=== PATIENT | female | born 1965 | race Two or more races ===

== ENCOUNTER 2020-05-16 15:02 | Outpatient (REF) | payer OTHER, SELFPAY ==
[2020-05-16 18:00] LABS: MANUAL DIFF FLAG NO
[2020-05-16 18:02] LABS: Basophils Percent Auto 0.1 % (0-2); Eosinophils Percent Auto 0.3 % (0-4); Hematocrit 37.7 % (37-47); Hemoglobin 11.8 g/dl (12.0-16.0); Imm Gran Abs Auto 0.06 X10*3/uL (0.00-0.03); Imm Gran Pct Auto 0.4 % (0.0-0.4); Lymphocytes Absolute Auto 2.7 X10*3/uL (1.2-4.9); Lymphocytes Percent Auto 17.8 % (20-40); Mean Corpuscular HGB Conc 31.3 g/dl (31.0-35.0); Mean Corpuscular Hemoglobin 29.9 pg (27.0-33.0); Mean Corpuscular Volume 95.4 fL (80-98); Mean Platelet Volume 10.8 fL (9.4-12.3); Monocytes Absolute Auto 0.9 X10*3/uL (0.1-1.2); Monocytes Percent Auto 6.1 % (2-11); Neutrophils Absolute Auto 11.3 X10*3/uL (2.0-8.3); Neutrophils Percent Auto 75.3 % (45-73); Platelet Count 308 X10*3/uL (160-400); Red Blood Count 3.95 X10*6/uL (4.20-5.50); Red Cell Distribution Width 13.5 % (11.0-16.0)
[2020-05-16 18:38] LABS: Anion Gap 11 (12-20); Blood Urea Nitrogen 14 mg/dL (9-16); Calcium 9.1 mg/dL (8.4-10.2); Carbon Dioxide 29 mmol/L (22-29); Chloride 109 mmol/L (96-108); Estimated Glomerular Filt Rate > 60; Glucose Random 83 mg/dL (60-115); Potassium 3.9 mmol/l (3.3-5.1); Sodium 145 mmol/L (135-145)
[2020-05-16 18:40] LABS: Troponin-I High Sensitivity < 3.5 ng/L (<3.5-17.0)
[2020-05-16 18:49] LABS: Erythrocyte Sedimentation Rate 6 MM/HR (0-20)
[2020-05-18 09:38] LABS: SARS COV2 IgG Negative (Negative)
== END 2020-05-16 15:03 | disposition home or self-care (01) ==
LOC: CF 15:02
PROVIDERS: PCP Pediatrics; Visit Provider Hospitalist
DX: J32.9 Chronic sinusitis, unspecified (principal); J44.9 Chronic obstructive pulmonary disease, unspecified; J96.90 Respiratory failure, unspecified, unspecified whether with hypoxia or hypercapnia; G47.33 Obstructive sleep apnea (adult) (pediatric); B37.0 Candidal stomatitis; R07.9 Chest pain, unspecified; Z01.84 Encounter for antibody response examination; Z99.89 Dependence on other enabling machines and devices
CPT/HCPCS: 36415; 80048; 82550; 84484; 85025; 85652; 86769; 99214

== ENCOUNTER → 2020-06-04 10:09 | Outpatient (BNVA) | payer OTHER, SELFPAY | PROVIDERS: PCP Pediatrics; Visit Provider Hospitalist | DX: J44.1 Chronic obstructive pulmonary disease with (acute) exacerbation (principal); J96.10 Chronic respiratory failure, unspecified whether with hypoxia or hypercapnia; G47.33 Obstructive sleep apnea (adult) (pediatric); Z99.89 Dependence on other enabling machines and devices; Z99.81 Dependence on supplemental oxygen | CPT/HCPCS: 96372; 99214; J2930 ==

== ENCOUNTER → 2020-07-25 14:55 | Outpatient (BNVA) | payer OTHER, SELFPAY | PROVIDERS: PCP Pediatrics; Visit Provider Hospitalist | DX: J96.10 Chronic respiratory failure, unspecified whether with hypoxia or hypercapnia (principal); J32.9 Chronic sinusitis, unspecified; J44.9 Chronic obstructive pulmonary disease, unspecified; G47.33 Obstructive sleep apnea (adult) (pediatric) | CPT/HCPCS: 99212 ==

== ENCOUNTER → 2020-09-23 13:08 | Outpatient (BNVA) | payer OTHER, SELFPAY | PROVIDERS: PCP Pediatrics; Visit Provider Hospitalist ==

== ENCOUNTER 2020-10-09 15:12 | Outpatient (REF) | payer OTHER, SELFPAY ==
--- NOTE | ~2020-10-09 | XR_ITS ---
EXAMINATION: XR CHEST CLINICAL INFORMATION: COPD COMPARISON: 05/07/2019 TECHNIQUE: 2 views of the chest were obtained. FINDINGS: No significant abnormality is noted involving the heart, lungs, mediastinum, bony thorax or soft tissues. XR/XR chest 2V IMPRESSION: Unremarkable examination.
[2020-10-09 16:06] LABS: MANUAL DIFF FLAG NO
[2020-10-09 16:10] LABS: Basophils Percent Auto 0.6 % (0-2); Eosinophils Absolute Auto 0.1 X10*3/uL (0.0-0.4); Eosinophils Percent Auto 1.4 % (0-4); Hematocrit 37.7 % (37-47); Hemoglobin 11.9 g/dl (12.0-16.0); Imm Gran Abs Auto 0.02 X10*3/uL (0.00-0.03); Imm Gran Pct Auto 0.3 % (0.0-0.4); Lymphocytes Absolute Auto 2.1 X10*3/uL (1.2-4.9); Lymphocytes Percent Auto 32.6 % (20-40); Mean Corpuscular HGB Conc 31.6 g/dl (31.0-35.0); Mean Corpuscular Hemoglobin 29.7 pg (27.0-33.0); Mean Platelet Volume 10.1 fL (9.4-12.3); Monocytes Absolute Auto 0.6 X10*3/uL (0.1-1.2); Monocytes Percent Auto 9.6 % (2-11); Neutrophils Absolute Auto 3.6 X10*3/uL (2.0-8.3); Neutrophils Percent Auto 55.5 % (45-73); Platelet Count 310 X10*3/uL (160-400); Red Blood Count 4.01 X10*6/uL (4.20-5.50); Red Cell Distribution Width 13.3 % (11.0-16.0); White Blood Count 6.5 X10*3/uL (4.8-10.8)
[2020-10-09 17:28] LABS: Erythrocyte Sedimentation Rate 39 MM/HR (0-20)
[2020-10-10 03:49] LABS: SARS COV2 IgG Negative (Negative)
[2020-10-10 06:06] LABS: Immunoglobulin E 204 kU/L (<OR=114)
[2020-10-10 14:27] LABS: Immunoglobulin G Subclass 1 369 mg/dL (382-929); Immunoglobulin G Subclass 2 214 mg/dL (241-700); Immunoglobulin G Subclass 3 32 mg/dL (22-178); Immunoglobulin G Total 739 mg/dL (600-1640)
== END 2020-10-09 15:13 | disposition home or self-care (01) ==
LOC: HO.LAB 15:12
PROVIDERS: PCP Pediatrics; Visit Provider Hospitalist
DX: J44.9 Chronic obstructive pulmonary disease, unspecified (principal)
CPT/HCPCS: 36415; 71046; 82784; 82785; 85025; 85652; 86769

== ENCOUNTER → 2020-11-04 14:31 | Outpatient (BNVA) | payer OTHER, SELFPAY | PROVIDERS: PCP Pediatrics; Visit Provider Hospitalist | DX: J44.9 Chronic obstructive pulmonary disease, unspecified (principal); J96.11 Chronic respiratory failure with hypoxia; J32.0 Chronic maxillary sinusitis; G47.33 Obstructive sleep apnea (adult) (pediatric); R07.81 Pleurodynia; K21.9 Gastro-esophageal reflux disease without esophagitis; R31.0 Gross hematuria; Z79.899 Other long term (current) drug therapy | CPT/HCPCS: 99212 ==

== ENCOUNTER → 2021-01-01 14:52 | Outpatient (BNVA) | payer OTHER, SELFPAY | PROVIDERS: PCP Pediatrics; Visit Provider Hospitalist | DX: J45.909 Unspecified asthma, uncomplicated (principal); Z79.899 Other long term (current) drug therapy | CPT/HCPCS: 99212 ==

== ENCOUNTER → 2021-02-26 15:08 | Outpatient (BNVA) | payer OTHER, SELFPAY | PROVIDERS: PCP Pediatrics; Visit Provider Hospitalist | DX: J96.11 Chronic respiratory failure with hypoxia (principal); J44.1 Chronic obstructive pulmonary disease with (acute) exacerbation; G47.33 Obstructive sleep apnea (adult) (pediatric) | CPT/HCPCS: 99211 ==

== ENCOUNTER → 2021-03-31 14:44 | Outpatient (BNVA) | payer OTHER, SELFPAY | PROVIDERS: PCP Pediatrics; Visit Provider Hospitalist | DX: J96.11 Chronic respiratory failure with hypoxia (principal); J44.1 Chronic obstructive pulmonary disease with (acute) exacerbation; J44.9 Chronic obstructive pulmonary disease, unspecified; G47.33 Obstructive sleep apnea (adult) (pediatric) | CPT/HCPCS: 99212 ==

== ENCOUNTER 2021-05-01 09:13 | Outpatient (REF) | payer OTHER, SELFPAY ==
[2021-05-06 09:31] LABS: SARS-COV-2 IgG Spike, Semi-Qnt >20.00 index (<1.00)
== END 2021-05-01 09:14 | disposition home or self-care (01) ==
LOC: HO.LAB 09:13
PROVIDERS: PCP Pediatrics; Visit Provider Hospitalist
DX: J44.1 Chronic obstructive pulmonary disease with (acute) exacerbation (principal); G47.30 Sleep apnea, unspecified; J96.10 Chronic respiratory failure, unspecified whether with hypoxia or hypercapnia; F19.20 Other psychoactive substance dependence, uncomplicated; Z79.899 Other long term (current) drug therapy; Z99.81 Dependence on supplemental oxygen; Z20.822 Contact with and (suspected) exposure to COVID-19
CPT/HCPCS: 36415; 86769; 99212

== ENCOUNTER → 2021-06-02 15:01 | Outpatient (REF) | payer OTHER, SELFPAY ==
--- NOTE | 2021-06-02 15:57 | ECG_ITS ---
Test Reason : copd Blood Pressure : / mmHG Vent. Rate : 066 BPM Atrial Rate : 066 BPM P-R Int : 126 ms QRS Dur : 078 ms QT Int : 400 ms P-R-T Axes : 038 -12 -02 degrees QTc Int : 419 ms Normal sinus rhythm Low voltage QRS Nonspecific T wave abnormality Abnormal ECG No previous ECGs available Referred By: Christopher Clark Electronically Signed By:SIMON DORMAN MD
== END ==
LOC: HO.CARD 15:01
PROVIDERS: PCP Pediatrics; Visit Provider Hospitalist
DX: J96.10 Chronic respiratory failure, unspecified whether with hypoxia or hypercapnia (principal); J44.1 Chronic obstructive pulmonary disease with (acute) exacerbation; G47.33 Obstructive sleep apnea (adult) (pediatric); J45.50 Severe persistent asthma, uncomplicated; R07.81 Pleurodynia
CPT/HCPCS: 93005; 99212

== ENCOUNTER 2021-06-05 13:57 | Outpatient (REF) | payer OTHER, SELFPAY | END 2021-06-05 13:58 | disposition home or self-care (01) | LOC: HO.MDS 13:57 | PROVIDERS: PCP Pediatrics; Visit Provider Hospitalist | DX: J45.50 Severe persistent asthma, uncomplicated (principal) | CPT/HCPCS: 96372; J2357 ==

== ENCOUNTER 2021-07-07 14:05 | Outpatient (REF) | payer OTHER, SELFPAY | END 2021-07-07 14:06 | disposition home or self-care (01) | LOC: HO.MDS 14:05 | PROVIDERS: PCP Pediatrics; Visit Provider Hospitalist | DX: J45.50 Severe persistent asthma, uncomplicated (principal) | CPT/HCPCS: 96372; J2357 ==

== ENCOUNTER 2021-07-21 14:12 | Outpatient (REF) | payer OTHER, SELFPAY | END 2021-07-21 14:13 | disposition home or self-care (01) | LOC: HO.MDS 14:12 | PROVIDERS: PCP Pediatrics; Visit Provider Hospitalist | DX: J45.50 Severe persistent asthma, uncomplicated (principal); Z99.81 Dependence on supplemental oxygen | CPT/HCPCS: 96372; J2357 ==

== ENCOUNTER → 2021-08-03 15:16 | Outpatient (BNVA) | payer OTHER, SELFPAY | PROVIDERS: PCP Pediatrics; Visit Provider Hospitalist | DX: J96.11 Chronic respiratory failure with hypoxia (principal); J45.50 Severe persistent asthma, uncomplicated; J44.9 Chronic obstructive pulmonary disease, unspecified; G47.33 Obstructive sleep apnea (adult) (pediatric) | CPT/HCPCS: 90471; 90686; 99212 ==

== ENCOUNTER 2021-08-04 15:08 | Outpatient (REF) | payer OTHER, SELFPAY | END 2021-08-04 15:09 | disposition home or self-care (01) | LOC: HO.MDS 15:08 | PROVIDERS: PCP Pediatrics; Visit Provider Hospitalist | DX: J45.50 Severe persistent asthma, uncomplicated (principal) | CPT/HCPCS: 96372; J2357 ==

== ENCOUNTER 2021-08-18 15:03 | Outpatient (REF) | payer OTHER, SELFPAY | END 2021-08-18 15:04 | disposition home or self-care (01) | LOC: HO.MDS 15:03 | PROVIDERS: PCP Pediatrics; Visit Provider Hospitalist | DX: J45.50 Severe persistent asthma, uncomplicated (principal) | CPT/HCPCS: 96372; J2357 ==

== ENCOUNTER 2021-09-01 14:48 | Outpatient (REF) | payer OTHER, SELFPAY | END 2021-09-01 14:49 | disposition home or self-care (01) | LOC: HO.MDS 14:48 | PROVIDERS: PCP Pediatrics; Visit Provider Hospitalist | DX: J45.50 Severe persistent asthma, uncomplicated (principal); Z99.81 Dependence on supplemental oxygen | CPT/HCPCS: 96372; J2357 ==

== ENCOUNTER 2021-09-15 14:56 | Outpatient (REF) | payer OTHER, SELFPAY | END 2021-09-15 14:57 | disposition home or self-care (01) | LOC: HO.MDS 14:56 | PROVIDERS: PCP Pediatrics; Visit Provider Hospitalist | DX: J45.50 Severe persistent asthma, uncomplicated (principal); J96.10 Chronic respiratory failure, unspecified whether with hypoxia or hypercapnia; Z99.81 Dependence on supplemental oxygen | CPT/HCPCS: 96372; J2357 ==

== ENCOUNTER 2021-09-29 16:59 | Outpatient (REF) | payer OTHER, SELFPAY | END 2021-09-29 17:00 | disposition home or self-care (01) | LOC: HO.MDS 16:59 | PROVIDERS: PCP Pediatrics; Visit Provider Hospitalist | DX: J45.50 Severe persistent asthma, uncomplicated (principal) | CPT/HCPCS: 96372; J2357 ==

== ENCOUNTER 2021-10-06 15:25 | Outpatient (REF) | payer OTHER, SELFPAY ==
[2021-10-06 16:14] LABS: MANUAL DIFF FLAG NO
[2021-10-06 16:28] LABS: Basophils Percent Auto 0.4 % (0-2); Eosinophils Percent Auto 0.2 % (0-4); Hematocrit 37.5 % (37.0-47.0); Imm Gran Abs Auto 0.04 X10*3/uL (0.00-0.03); Imm Gran Pct Auto 0.4 % (0.0-0.4); Lymphocytes Absolute Auto 3.6 X10*3/uL (1.2-4.9); Lymphocytes Percent Auto 34.2 % (20-40); Mean Corpuscular Hemoglobin 29.8 pg (27.0-33.0); Mean Corpuscular Volume 93.1 fL (80.0-98.0); Mean Platelet Volume 10.4 fL (9.4-12.3); Monocytes Absolute Auto 0.7 X10*3/uL (0.1-1.2); Monocytes Percent Auto 6.7 % (2-11); Neutrophils Percent Auto 58.1 % (45-73); Platelet Count 358 X10*3/uL (160-400); Red Blood Count 4.03 X10*6/uL (4.20-5.50); Red Cell Distribution Width 13.1 % (11.0-16.0); White Blood Count 10.4 X10*3/uL (4.8-10.8)
[2021-10-06 16:47] LABS: Anion Gap 10 (12-20); Blood Urea Nitrogen 16 mg/dL (9-16); Calcium 10.4 mg/dL (8.4-10.2); Carbon Dioxide 28 mmol/L (22-29); Chloride 108 mmol/L (96-108); Estimated Glomerular Filt Rate > 60; Glucose Random 87 mg/dL (60-115); Potassium 3.8 mmol/L (3.3-5.1); Sodium 142 mmol/L (135-145)
[2021-10-06 17:06] LABS: Erythrocyte Sedimentation Rate 21 MM/HR (0-20)
[2021-10-12 04:06] LABS: SARS COV2 IgG Negative (Negative)
== END 2021-10-06 15:26 | disposition home or self-care (01) ==
LOC: HO.LAB 15:25
PROVIDERS: PCP Pediatrics; Visit Provider Hospitalist
DX: Z20.822 Contact with and (suspected) exposure to COVID-19 (principal); J96.11 Chronic respiratory failure with hypoxia; G47.33 Obstructive sleep apnea (adult) (pediatric); J44.9 Chronic obstructive pulmonary disease, unspecified; J45.50 Severe persistent asthma, uncomplicated
CPT/HCPCS: 36415; 80048; 85025; 85652; 86769; 99212

== ENCOUNTER 2021-10-14 15:06 | Outpatient (REF) | payer OTHER, SELFPAY | END 2021-10-14 15:07 | disposition home or self-care (01) | LOC: HO.MDS 15:06 | PROVIDERS: PCP Pediatrics; Visit Provider Hospitalist | DX: J45.50 Severe persistent asthma, uncomplicated (principal) | CPT/HCPCS: 96372; J2357 ==

== ENCOUNTER 2021-10-28 15:08 | Outpatient (REF) | payer OTHER, SELFPAY | END 2021-10-28 15:09 | disposition home or self-care (01) | LOC: HO.MDS 15:08 | PROVIDERS: PCP Pediatrics; Visit Provider Hospitalist | DX: J45.50 Severe persistent asthma, uncomplicated (principal) | CPT/HCPCS: 96372; J2357 ==

== ENCOUNTER 2021-11-17 15:09 | Outpatient (REF) | payer OTHER, SELFPAY | END 2021-11-17 15:10 | disposition home or self-care (01) | LOC: HO.MDS 15:09 | PROVIDERS: PCP Pediatrics; Visit Provider Hospitalist | DX: J45.50 Severe persistent asthma, uncomplicated (principal) | CPT/HCPCS: 96372; J2357 ==

== ENCOUNTER 2021-12-01 16:03 | Outpatient (REF) | payer OTHER, SELFPAY | END 2021-12-01 16:04 | disposition home or self-care (01) | LOC: HO.MDS 16:03 | PROVIDERS: PCP Pediatrics; Visit Provider Hospitalist | DX: J45.50 Severe persistent asthma, uncomplicated (principal); J96.10 Chronic respiratory failure, unspecified whether with hypoxia or hypercapnia; G47.33 Obstructive sleep apnea (adult) (pediatric); Z99.81 Dependence on supplemental oxygen | CPT/HCPCS: 96372; J2357; Q0163 ==

== ENCOUNTER 2021-12-15 14:52 | Outpatient (REF) | payer OTHER, SELFPAY | END 2021-12-15 14:53 | disposition home or self-care (01) | LOC: HO.MDS 14:52 | PROVIDERS: PCP Pediatrics; Visit Provider Hospitalist | DX: J45.50 Severe persistent asthma, uncomplicated (principal) | CPT/HCPCS: 96372; J2357; Q0163 ==

== ENCOUNTER 2021-12-29 15:13 | Outpatient (REF) | payer OTHER, SELFPAY | END 2021-12-29 15:14 | disposition home or self-care (01) | LOC: HO.MDS 15:13 | PROVIDERS: PCP Pediatrics; Visit Provider Hospitalist | DX: J45.50 Severe persistent asthma, uncomplicated (principal) | CPT/HCPCS: 96372; J2357; Q0163 ==

== ENCOUNTER → 2022-01-05 15:20 | Outpatient (BNVA) | payer OTHER, SELFPAY | PROVIDERS: PCP Pediatrics; Visit Provider Hospitalist | DX: J44.9 Chronic obstructive pulmonary disease, unspecified (principal); J45.50 Severe persistent asthma, uncomplicated; J96.11 Chronic respiratory failure with hypoxia; G47.33 Obstructive sleep apnea (adult) (pediatric); Z79.52 Long term (current) use of systemic steroids; Z79.899 Other long term (current) drug therapy; Z99.81 Dependence on supplemental oxygen | CPT/HCPCS: 99212 ==

== ENCOUNTER → 2022-04-05 14:17 | Outpatient (BNVA) | payer OTHER, SELFPAY | PROVIDERS: PCP Pediatrics; Visit Provider Hospitalist | DX: Z01.811 Encounter for preprocedural respiratory examination (principal); J44.1 Chronic obstructive pulmonary disease with (acute) exacerbation; J96.11 Chronic respiratory failure with hypoxia; J45.50 Severe persistent asthma, uncomplicated; G47.33 Obstructive sleep apnea (adult) (pediatric); Z99.81 Dependence on supplemental oxygen | CPT/HCPCS: 99212 ==

== ENCOUNTER → 2022-06-04 12:57 | Outpatient (BNVA) | payer OTHER, SELFPAY | PROVIDERS: PCP Pediatrics; Visit Provider Hospitalist | DX: Z23 Encounter for immunization (principal); J44.9 Chronic obstructive pulmonary disease, unspecified; J45.50 Severe persistent asthma, uncomplicated; J96.11 Chronic respiratory failure with hypoxia; G47.33 Obstructive sleep apnea (adult) (pediatric) | CPT/HCPCS: 90471; 90686; 99212 ==

== ENCOUNTER → 2022-06-17 13:03 | Outpatient (BNVA) | payer OTHER, SELFPAY | PROVIDERS: PCP Pediatrics; Visit Provider Hospitalist | DX: J45.51 Severe persistent asthma with (acute) exacerbation (principal); J44.9 Chronic obstructive pulmonary disease, unspecified; J96.11 Chronic respiratory failure with hypoxia; G47.33 Obstructive sleep apnea (adult) (pediatric) | CPT/HCPCS: 96372; 99212; J2930 ==

== ENCOUNTER 2022-12-10 14:59 | Outpatient (REF) | payer OTHER, SELFPAY ==
--- NOTE | ~2022-12-10 | XR_ITS ---
EXAMINATION: XR CHEST CLINICAL INFORMATION: Asthma with acute exacerbation COMPARISON: None available. TECHNIQUE: 2 views of the chest were obtained. FINDINGS: No significant abnormality is noted involving the heart, lungs, mediastinum, bony thorax or soft tissues. XR/XR chest 2V IMPRESSION: Unremarkable chest examination.
[2022-12-10 16:05] LABS: MANUAL DIFF FLAG NO
[2022-12-10 17:35] LABS: Basophils Absolute Auto 0.1 X10*3/uL (0.0-0.2); Basophils Percent Auto 0.9 % (0-2); Eosinophils Absolute Auto 0.2 X10*3/uL (0.0-0.4); Eosinophils Percent Auto 2.6 % (0-4); Hematocrit 41.3 % (37.0-47.0); Imm Gran Abs Auto 0.01 X10*3/uL (0.00-0.03); Imm Gran Pct Auto 0.1 % (0.0-0.4); Lymphocytes Absolute Auto 2.8 X10*3/uL (1.2-4.9); Lymphocytes Percent Auto 39.5 % (20-40); Mean Corpuscular HGB Conc 31.5 g/dl (31.0-35.0); Mean Corpuscular Hemoglobin 29.2 pg (27.0-33.0); Mean Corpuscular Volume 92.8 fL (80.0-98.0); Mean Platelet Volume 10.9 fL (9.4-12.3); Monocytes Absolute Auto 0.6 X10*3/uL (0.1-1.2); Monocytes Percent Auto 8.6 % (2-11); Neutrophils Absolute Auto 3.4 x10*3/uL (2.0-8.3); Neutrophils Percent Auto 48.3 % (45-73); Platelet Count 346 X10*3/uL (160-400); Red Blood Count 4.45 X10*6/uL (4.20-5.50); Red Cell Distribution Width 12.2 % (11.0-16.0)
[2022-12-10 18:08] LABS: Anion Gap 14 (12-20); Blood Urea Nitrogen 14 mg/dL (9-16); Carbon Dioxide 29 mmol/L (22-29); Chloride 103 mmol/L (96-108); Estimated Glomerular Filt Rate > 60; Glucose Random 96 mg/dL (60-115); Potassium 5.1 mmol/L (3.3-5.1); Sodium 141 mmol/L (135-145)
[2022-12-14 10:30] LABS: Immunoglobulin E 90 kU/L (<OR=114)
[2022-12-17 12:38] LABS: Immunoglobulin G Subclass 1 359 mg/dL (382-929); Immunoglobulin G Subclass 2 233 mg/dL (241-700); Immunoglobulin G Subclass 3 31 mg/dL (22-178); Immunoglobulin G Subclass 4 26.8 mg/dL (4-86); Immunoglobulin G Total 654 mg/dL (600-1640)
== END 2022-12-10 15:00 | disposition home or self-care (01) ==
LOC: HO.LAB 14:59
PROVIDERS: PCP Pediatrics; Visit Provider Hospitalist
DX: Z01.811 Encounter for preprocedural respiratory examination (principal); J45.50 Severe persistent asthma, uncomplicated; R60.0 Localized edema; J96.11 Chronic respiratory failure with hypoxia; J44.9 Chronic obstructive pulmonary disease, unspecified
CPT/HCPCS: 36415; 71046; 80048; 82784; 82785; 85025; 94010; 99212

== ENCOUNTER 2023-04-01 14:52 | Outpatient (AMB) | payer OTHER, SELFPAY ==
--- NOTE | 2023-04-01 14:56 | MHC.OFFVIS ---
Intake Vital Signs 04/01/23 14:57 Height 5 ft 6 in Weight 262 lb 5.601 oz BMI 42.3 Pulse 73 Pulse Source Pulse Oximeter Pulse Oximetry (%) 98 Intake Visit Reasons: COPD [employer] Required: No Allergies topiramate [From Topamax] Allergy (Mild, Verified 04/01/23 14:59) Tingling in mouth and lips gabapentin Allergy (Verified 04/01/23 14:59) Hot Flashes HPI HPI Comments History of Present Illness Details The patientis a 57 y/o woman with underlying chronic respiratory failure on oxygen in addition to COPD, VIKAS on CPAP. She is oxygen dependent. She does have dyspnea on exertion. Moderate in amount. The oxygen has been helpful. However, it is hard for her to carry the oxygen tanks. She is concerned about the finding on the CT scan of the chest demonstrating 1.7 cm splenic artery aneurysm. Therefore, I will refer her to vascular surgeon. Overall, the patient is doing well from a respiratory standpoint. She understand that she does have a moderate risk for perioperative pulmonary complications. I did review her sleep study from January 2018 demonstrating moderate sleep apnea with significant hypoxia. I will send a new prescription for CPAP to the [facility]. When she Star CPAP for we can do an overnight oximetry to see if she does need oxygen with her CPAP. She continues using her oxygen. She is still having issues with a battery operated portable oxygen concentrator. She has a hard time caring her oxygen tanks because of her significant arthritis and other comorbidities. The portable oxygen concentrator will provide better portability outside of her home. 12/10/2022 The patient is here for a pulmonary follow up visit. She does complain of dyspnea on exertion. Moderate in severity. HAs been getting better. She has been using her oxygen, Also continues with her respiratory therapy and nebulizer. She also continues to use the CPAP every night for more than 4 hours a night. The therapy has been effective and beneficial. She has been coughing more ans getting sinus pressure buildup. Has recurrent sinusitis. She is scheduled to undergo a EGD/colonoscopy. She those have moderate risk for complications, but she is medically maximized from a pulmonary view. She has worsening LE edema. But she has not been using her Torsemide. 04/01/2023 the patient is here for a pulmonary follow-up visit. Overall she is doing well. she has been using the oxygen. The patient continues with respiratory therapy with good effect. She has been complaining of pleuritic chest discomfort on the right side. Mild in severity. Just started a few weeks ago. She feels is related to the fact that she was not able to renew her Daliresp. Therefore will start her back on Daliresp and will provide with Lidoderm patches. If the pain continues she will call so we can further address the Ongoing symptoms. She had been tested with a D-dimer in the past. She did have a CTA also in the past ruling out pulmonary emboli. She has also noted some lower extremity edema. Bilaterally. the patient also has been using her CPAP. CPAP therapy continues to be affecting beneficial. She does use it for more than 4 hours a day.. [facility] Medical History (Updated 04/01/23 @ 15:18 by Christopher Clark MD) Asthma Asthma-COPD overlap syndrome Chronic respiratory failure COPD exacerbation Hematuria Lower extremity edema VIKAS (obstructive sleep apnea) Sinusitis Steroid dependent Surgical History (Updated 05/10/20 @ 13:06 by Tova Mallory LPN) Carpal tunnel syndrome Family History (Updated 06/04/20 @ 22:35 by Christopher Clark MD) Sister Asthma Social History (Updated 03/31/21 @ 15:13 by Naina Bragg Merly) Patient Tobacco Use Status: Never used Tobacco Review of Systems Const Reports fatigue, Reports headache(s), Reports malaise and Denies night sweats Eyes Reports no additional complaints, Denies eye discharge, Denies irritation and Denies photophobia ENT Denies change in voice, Reports headache(s), Denies lip swelling, Denies mouth pain, Reports nasal congestion, Reports nasal discharge, Reports sinus pain, Reports sinus pressure and Denies tongue swelling Card Reports chest pain, Reports leg edema and Reports dyspnea on exertion Resp Reports chest congestion, Reports cough, Reports pain with cough, Reports dyspnea on exertion and Denies wheezing GI Reports abdominal pain, Reports dyspepsia and Reports heartburn Denies dysuria Musc Reports as per HPI, Reports arthralgias and Reports limited range of motion Skin/Breast Reports change in pigmentation Neuro Denies Neuro-related abnormal movements and Reports headache(s) Psych Denies no additional complaints Endo Reports fatigue Arsh/Lymph Denies easy bleeding and Denies lymphadenopathy Aller/Immun Denies lip swelling, Denies tongue swelling and Denies wheezing Physical Exam Vital Signs: Last Vital Signs Pulse 73 04/01/23 14:57 Pulse Ox 98 04/01/23 14:57 BMI result Body Mass Index 42.3 Const General: alert Eyes Direct Ophthalmoscopy: No photophobia Neck Neck: Yes normal visual inspection, Yes full ROM and Yes no lymphadenopathy Chest Chest palpation & inspection: normal inspection of the chest Resp Effort & Inspection: normal respiratory effort, able to speak in complete sentences and no audible wheezes Auscultation: no crackles, no rales, no rhonchi, no wheezes and diminished lung sounds Cardio Rate: regular rate Rhythm: regular rhythm Heart sounds: S1 normal heart sound present and S2 normal heart sound present GI Palpation (GI): Soft to palpation and nontender Auscultation: normal bowel sounds Skin General skin exam: no rashes or lesions noted and other (vitiligo) Extrem General: No clubbing, No cyanosis and Yes edema Assessment & Plan Assessment & Plan (1) Lower extremity edema: Code(s): R60.0 - Localized edema (2) Chronic respiratory failure: Code(s): J96.10 - Chronic respiratory failure, unspecified whether with hypoxia or hypercapnia Qualifiers: Respiratory failure complication: hypoxia Qualified Code(s): J96.11 - Chronic respiratory failure with hypoxia (3) VIKAS (obstructive sleep apnea): Code(s): G47.33 - Obstructive sleep apnea (adult) (pediatric) (4) Asthma-COPD overlap syndrome: Code(s): J44.9 - Chronic obstructive pulmonary disease, unspecified Plan LE dopplers-pt prefers [facility] cough medication, rx sent Xolair and allergy shots continue Stiolto/QVAR Continue Daliresp continue DuoNeb continue oxygen supplementation. POC for portability continue CPAP start Lidoderm patch reflux diet PPI F/U 2-3 months Orders: Orders US venous duplex LE BI 04/01/23 R60.0 - Localized edema Medications: New prednisone 10 mg PO DAILY 30 days 30 tabs 6RF roflumilast (Daliresp) 500 mcg PO DAILY 30 tabs 11RF lidocaine 5% (Lidoderm) leave on most painful area for up to 12 hrs 1 patch topical DAILY 30 days 30 ea 4RF B02.29 - Other postherpetic nervous system involvement ondansetron 4 mg PO Q8H PRN 14 tabs 1RF nausea and vomiting melatonin 5 mg PO BEDTIME 30 days PRN 30 tabs 11RF sleep lidocaine 5% (Lidoderm) leave on most painful area for up to 12 hrs 1 patch topical DAILY 30 days 30 ea 4RF B02.29 - Other postherpetic nervous system involvement melatonin 5 mg PO BEDTIME 30 days PRN 30 tabs 11RF sleep ondansetron 4 mg PO Q8H PRN 14 tabs 1RF nausea and vomiting prednisone 10 mg PO DAILY 30 days 30 tabs 6RF roflumilast (Daliresp) 500 mcg PO DAILY 30 tabs 11RF Refilled albuterol sulfate 90 mcg/actuation 2 inhalations inhalation Q6H 30 days PRN 1 ea 11RF shortness of breath or wheezing azithromycin Take 1 tablet on Tuesday/Tuesday/Tuesday 250 mg PO 3XW 28 days 12 tabs 6RF K21.9 - Gastro-esophageal reflux disease without esophagitis cetirizine (Zyrtec) 10 mg PO DAILY 30 days 30 tabs 11RF tiotropium-olodaterol 2.5-2.5 mcg/actuation (Stiolto Respimat) 2 puffs inhalation DAILY 30 days 4 grams 11RF omeprazole 40 mg PO DAILY 30 days 30 caps 6RF codeine-guaifenesin 10-100 mg/5 mL 10 mL PO Q6H 10 days PRN 300 mL 0RF cough albuterol sulfate 90 mcg/actuation 2 inhalations inhalation Q6H 30 days PRN 1 ea 11RF shortness of breath or wheezing azithromycin Take 1 tablet on Tuesday/Tuesday/Tuesday 250 mg PO 3XW 28 days 12 tabs 6RF K21.9 - Gastro-esophageal reflux disease without esophagitis benzonatate 200 mg PO TID 30 days PRN 60 caps 11RF cough cetirizine (Zyrtec) 10 mg PO DAILY 30 days 30 tabs 11RF montelukast 10 mg PO DAILY 30 days 30 tabs 11RF omeprazole 40 mg PO DAILY 30 days 30 caps 11RF tiotropium-olodaterol 2.5-2.5 mcg/actuation (Stiolto Respimat) 2 puffs inhalation DAILY 30 days 4 grams 11RF Discontinued beclomethasone dipropionate 80 mcg/actuation (Qvar RediHaler) Discontinued Reason: Doctor's Order 2 inhalations inhalation BID 30 days 10.6 grams 11RF Coding Level of Care Code Est Pt Level 5 (08519) Diagnoses Lower extremity edema R60.0 Chronic respiratory failure J96.11 Respiratory failure complication: hypoxia VIKAS (obstructive sleep apnea) G47.33 Asthma-COPD overlap syndrome J44.9 Time Spent (min) 45
[2023-04-01 14:57] VITALS: PULSE 73; O2SAT 98; BMI 42.3
== END 2023-04-01 15:36 | disposition home or self-care (01) ==
PROVIDERS: PCP Pediatrics; Visit Provider Hospitalist
DX: J44.9 Chronic obstructive pulmonary disease, unspecified (principal); J96.11 Chronic respiratory failure with hypoxia; R60.0 Localized edema; G47.33 Obstructive sleep apnea (adult) (pediatric)
CPT/HCPCS: 99215

== ENCOUNTER → 2023-04-01 14:52 | Outpatient (BNVA) | payer OTHER, SELFPAY | PROVIDERS: PCP Pediatrics; Visit Provider Hospitalist | DX: J96.11 Chronic respiratory failure with hypoxia (principal); J44.9 Chronic obstructive pulmonary disease, unspecified; R60.0 Localized edema; G47.33 Obstructive sleep apnea (adult) (pediatric); Z99.81 Dependence on supplemental oxygen; Z99.89 Dependence on other enabling machines and devices; Z79.52 Long term (current) use of systemic steroids | CPT/HCPCS: 99212 ==

== ENCOUNTER 2023-07-18 14:56 | Outpatient (AMB) | payer OTHER, SELFPAY ==
[2023-07-18 15:02] VITALS: PULSE 92; O2SAT 100; BMI 42.3
--- NOTE | 2023-07-18 15:02 | A.OFFVIS_ITS ---
Intake Vital Signs 07/18/23 15:02 Height 5 ft 6 in Weight 262 lb 5.601 oz BMI 42.3 Pulse 92 Pulse Source Pulse Oximeter Pulse Oximetry (%) 100 Oxygen Delivery Method Room Air Intake Visit Reasons: COPD [employer] Required: No Allergies topiramate [From Topamax] Allergy (Mild, Verified 07/18/23 15:05) Tingling in mouth and lips gabapentin Allergy (Verified 07/18/23 15:05) Hot Flashes HPI HPI Comments History of Present Illness Details The patientis a 58 y/o woman with underlying chronic respiratory failure on oxygen in addition to COPD, VIKAS on CPAP. She is oxygen dependent. She does have dyspnea on exertion. Moderate in amount. The oxygen has been helpful. However, it is hard for her to carry the oxygen tanks. She is concerned about the finding on the CT scan of the chest demonstrating 1.7 cm splenic artery aneurysm. Therefore, I will refer her to vascular surgeon. Overall, the patient is doing well from a respiratory standpoint. She understand that she does have a moderate risk for perioperative pulmonary complications. I did review her sleep study from January 2018 demonstrating moderate sleep apnea with significant hypoxia. I will send a new prescription for CPAP to the [facility]. When she Star CPAP for we can do an overnight oximetry to see if she does need oxygen with her CPAP. She continues using her oxygen. She is still having issues with a battery operated portable oxygen concentrator. She has a hard time caring her oxygen tanks because of her significant arthritis and other comorbidities. The portable oxygen concentrator will provide better portability outside of her home. 07/18/2023 the patient is here for a pulmonary follow-up visit. Overall she is been doing well on Xolair and also the allergy shots. Although, she is been having significant headaches. She attributes this to the Xolair. She had been pretreating with Tylenol and Benadryl in in the past that did help with the headaches. Therefore, will provide with the Tylenol she already has a Benadryl so she can continue to do that pre medication treatment to minimize the adverse effects. Her respiratory therapy has been able to stabilize her respiratory symptoms significantly. She is still using her oxygen as prescribed with good effect. she has been started to have symptoms of sinusitis. She is concerns that is developing to full flush sinusitis. Will make sure to provide him medications to have case her symptoms worsen. In the meantime the patient has been having daytime drowsiness. she does use oxygen and also has a history of sleep apnea in the past. Her Milan score is elevated 10/24. At this point will request that the patient undergo a sleep study. Since she is on oxygen she will require an in-lab study. [facility] Medical History (Updated 04/01/23 @ 15:18 by Christopher Clark MD) Lower extremity edema Asthma Steroid dependent Hematuria Chronic respiratory failure COPD exacerbation Sinusitis VIKAS (obstructive sleep apnea) Asthma-COPD overlap syndrome Surgical History (Updated 05/10/20 @ 13:06 by Tova Mallory LPN) Carpal tunnel syndrome Family History (Updated 06/04/20 @ 22:35 by Christopher Clark MD) Sister Asthma Social History (Updated 03/31/21 @ 15:13 by Naina Bragg Merly) Patient Tobacco Use Status: Never used Tobacco Review of Systems Const Reports daytime sleepiness, Reports difficulty sleeping, Reports fatigue, Reports headache(s), Reports malaise, Denies night sweats and Reports stops breathing during sleep Eyes Reports no additional complaints, Denies eye discharge, Denies irritation and Denies photophobia ENT Denies change in voice, Reports headache(s), Denies lip swelling, Denies mouth pain, Reports nasal congestion, Reports nasal discharge, Reports sinus pain, Reports sinus pressure and Denies tongue swelling Card Reports chest pain, Reports leg edema and Reports dyspnea on exertion Resp Reports cough, Reports pain with cough, Reports dyspnea on exertion and Denies wheezing GI Reports abdominal pain, Reports dyspepsia and Reports heartburn Denies dysuria Musc Reports as per HPI, Reports arthralgias and Reports limited range of motion Skin/Breast Reports change in pigmentation Neuro Denies Neuro-related abnormal movements and Reports headache(s) Psych Denies no additional complaints Endo Reports fatigue Arsh/Lymph Denies easy bleeding and Denies lymphadenopathy Aller/Immun Denies lip swelling, Denies tongue swelling and Denies wheezing Physical Exam Vital Signs: Last Vital Signs Pulse 92 07/18/23 15:02 Pulse Ox 100 07/18/23 15:02 Oxygen Delivery Method Room Air 07/18/23 15:02 BMI result Body Mass Index 42.3 Const General: alert Eyes Direct Ophthalmoscopy: No photophobia Neck Neck: Yes normal visual inspection, Yes full ROM and Yes no lymphadenopathy Chest Chest palpation & inspection: normal inspection of the chest Resp Effort & Inspection: normal respiratory effort, able to speak in complete sentences and no audible wheezes Auscultation: no crackles, no rales, no rhonchi, no wheezes and diminished lung sounds Cardio Rate: regular rate Rhythm: regular rhythm Heart sounds: S1 normal heart sound present and S2 normal heart sound present GI Palpation (GI): Soft to palpation and nontender Auscultation: normal bowel sounds Skin General skin exam: no rashes or lesions noted and other (vitiligo) Extrem General: No clubbing, No cyanosis and Yes edema Office Procedures Flu Questionnaire Does the patient have a severe egg allergy?: No Does the patient have severe life threatening allergies?: No Does the patient have a fever or illness today?: No Has the patient ever had Guillain-[place] Syndrome?: No Has the patient ever had any past reaction to a flu shot?: No Immunizations flu vacc [id number] 6mos up(PF) 60 mcg(15 mcgx4)/0.5 mL IM syringe Performing Provider: Christopher Clark MD Performing Location: [facility] Administered by: Tova Mallory LPN on 07/18/23 15:22 Dose Route Admin Location Dispensed Lot Number Expiration Date [facility] [place] Supervisor Painting 0.5 mL IM Right Deltoid 0.5 mL [id number] 02/12/24 22802-210-82 [employer] VIS Given Date VIS Provided VIS Publication Date 07/18/23 Single Vaccine 21 Eligibility Eligibility Date Funding Source Not [facility] Eligible 07/18/23 Private Assessment & Plan Assessment & Plan (1) Chronic respiratory failure: Code(s): J96.10 - Chronic respiratory failure, unspecified whether with hypoxia or hypercapnia Qualifiers: Respiratory failure complication: hypoxia Qualified Code(s): J96.11 - Chronic respiratory failure with hypoxia (2) VIKAS (obstructive sleep apnea): Code(s): G47.33 - Obstructive sleep apnea (adult) (pediatric) (3) Asthma-COPD overlap syndrome: Code(s): J44.9 - Chronic obstructive pulmonary disease, unspecified Plan Xolair and allergy shots monthly pretreat with Benadryl and tylenol continue Stiolto/QVAR Continue Daliresp continue DuoNeb continue oxygen supplementation. POC for portability in lab PSG to readdress her VIKAS Lidoderm patch reflux diet PPI F/U 2-3 months Orders: Orders RT PSG in-lab sleep study Today G47.33 - Obstructive sleep apnea (adult) (pediatric) Influenza [id number] Immunization Today J44.9 - Chronic obstructive pulmonary disease, unspecified Medications: New acetaminophen (Tylenol Extra Strength) 1,000 mg (2 x 500 mg) PO BID 30 days PRN 10 tabs 11RF headache Refilled codeine-guaifenesin 10-100 mg/5 mL 10 mL PO Q6H 10 days PRN 300 mL 0RF cough azithromycin Take 1 tablet on Tuesday/Tuesday/Tuesday 250 mg PO 3XW 28 days 12 tabs 6RF K21.9 - Gastro-esophageal reflux disease without esophagitis cetirizine (Zyrtec) 10 mg PO DAILY 30 days 30 tabs 11RF amoxicillin-pot clavulanate 875-125 mg 1 tab PO BID 14 days 28 tabs 0RF prednisone 10 mg PO DAILY 30 days 30 tabs 6RF montelukast 10 mg PO DAILY 30 tabs 0RF roflumilast (Daliresp) 500 mcg PO DAILY 90 tabs 3RF tiotropium-olodaterol 2.5-2.5 mcg/actuation (Stiolto Respimat) 2 puffs inhalation DAILY 30 days 4 grams 11RF Coding Level of Care Code Est Pt Level 5 (09539) Diagnoses Chronic respiratory failure with hypoxia J96.11 Respiratory failure complication: hypoxia VIKAS (obstructive sleep apnea) G47.33 Asthma-COPD overlap syndrome J44.9 Time Spent (min) 35
== END 2023-07-18 15:28 | disposition home or self-care (01) ==
PROVIDERS: PCP Pediatrics; Visit Provider Hospitalist
DX: Z23 Encounter for immunization (principal); J96.11 Chronic respiratory failure with hypoxia; G47.33 Obstructive sleep apnea (adult) (pediatric); J44.9 Chronic obstructive pulmonary disease, unspecified
CPT/HCPCS: 99214

== ENCOUNTER → 2023-07-18 14:56 | Outpatient (BNVA) | payer OTHER, SELFPAY | PROVIDERS: PCP Pediatrics; Visit Provider Hospitalist | DX: Z23 Encounter for immunization (principal); J44.9 Chronic obstructive pulmonary disease, unspecified; J96.11 Chronic respiratory failure with hypoxia; G47.33 Obstructive sleep apnea (adult) (pediatric) | CPT/HCPCS: 90471; 90686; 99212 ==

== ENCOUNTER → 2023-08-16 20:30 | Outpatient (REF) | payer OTHER, SELFPAY | LOC: HO.SL 20:30 | PROVIDERS: PCP Pediatrics; Visit Provider Hospitalist | DX: G47.33 Obstructive sleep apnea (adult) (pediatric) (principal) | CPT/HCPCS: 95810 ==

== ENCOUNTER → 2023-08-16 23:26 | Outpatient (BNV) | payer OTHER, SELFPAY | PROVIDERS: PCP Pediatrics; Visit Provider Internal Medicine | DX: G47.33 Obstructive sleep apnea (adult) (pediatric) (principal) | CPT/HCPCS: 95810 ==

== ENCOUNTER 2023-10-17 14:47 | Outpatient (REF) | payer OTHER, SELFPAY ==
--- NOTE | ~2023-10-17 | XR_ITS ---
EXAMINATION: XR CHEST CLINICAL INFORMATION: Chronic obstructive pulmonary disease with acute exacerbation. COMPARISON: 12/10/2022. TECHNIQUE: 2 views of the chest were obtained. FINDINGS: Lung volumes are low. There is no gross pneumothorax. Cardiac silhouette within normal limits, although difficult to evaluate due to low lung volumes. Mild left costophrenic angle blunting may represent a small left pleural effusion. Degenerative changes in the thoracic spine. Mild left basilar opacities may represent atelectasis, although an inflammatory/infectious process should also be considered. XR/XR chest 2V IMPRESSION: 1. Mild left costophrenic angle blunting may represent a small left pleural effusion. 2. Mild left basilar opacities may represent atelectasis, although an inflammatory/infectious process should also be considered. This study was presented today, 10/18/2023, for interpretation. PSA staff will provide results to referring provider at this time.
== END 2023-10-17 14:48 | disposition home or self-care (01) ==
LOC: HO.XRAY 14:47
PROVIDERS: PCP Pediatrics; Visit Provider Hospitalist
DX: J44.9 Chronic obstructive pulmonary disease, unspecified (principal); R60.0 Localized edema; K21.9 Gastro-esophageal reflux disease without esophagitis; B02.29 Other postherpetic nervous system involvement; G47.33 Obstructive sleep apnea (adult) (pediatric)
CPT/HCPCS: 71046; 99212

== ENCOUNTER 2023-10-17 14:47 | Outpatient (AMB) | payer OTHER, SELFPAY ==
[2023-10-17 14:55] VITALS: PULSE 89; O2SAT 95; BMI 42.3
--- NOTE | 2023-10-17 14:55 | MHC.OFFVIS ---
Intake Vital Signs 10/17/23 14:55 Height 5 ft 6 in Weight 262 lb 5.601 oz BMI 42.3 Pulse 89 Pulse Source Pulse Oximeter Pulse Oximetry (%) 95 Oxygen Delivery Method Room Air Comment 3 Liters Oxygen([facility]) Intake Visit Reasons: COPD And Rescue [employer] Cr[employer] Fire Required: No Allergies topiramate [From Topamax] Allergy (Mild, Verified 10/17/23 14:56) Tingling in mouth and lips gabapentin Allergy (Verified 10/17/23 14:56) Hot Flashes HPI HPI Comments History of Present Illness Details The patientis a 58 y/o woman with underlying chronic respiratory failure on oxygen in addition to COPD, VIKAS on CPAP. She is oxygen dependent. She does have dyspnea on exertion. Moderate in amount. The oxygen has been helpful. However, it is hard for her to carry the oxygen tanks. She is concerned about the finding on the CT scan of the chest demonstrating 1.7 cm splenic artery aneurysm. Therefore, I will refer her to vascular surgeon. Overall, the patient is doing well from a respiratory standpoint. She understand that she does have a moderate risk for perioperative pulmonary complications. I did review her sleep study from January 2018 demonstrating moderate sleep apnea with significant hypoxia. I will send a new prescription for CPAP to the [facility]. When she Star CPAP for we can do an overnight oximetry to see if she does need oxygen with her CPAP. She continues using her oxygen. She is still having issues with a battery operated portable oxygen concentrator. She has a hard time caring her oxygen tanks because of her significant arthritis and other comorbidities. The portable oxygen concentrator will provide better portability outside of her home. 07/18/2023 the patient is here for a pulmonary follow-up visit. Overall she is been doing well on Xolair and also the allergy shots. Although, she is been having significant headaches. She attributes this to the Xolair. She had been pretreating with Tylenol and Benadryl in in the past that did help with the headaches. Therefore, will provide with the Tylenol she already has a Benadryl so she can continue to do that pre medication treatment to minimize the adverse effects. Her respiratory therapy has been able to stabilize her respiratory symptoms significantly. She is still using her oxygen as prescribed with good effect. she has been started to have symptoms of sinusitis. She is concerns that is developing to full flush sinusitis. Will make sure to provide him medications to have case her symptoms worsen. In the meantime the patient has been having daytime drowsiness. she does use oxygen and also has a history of sleep apnea in the past. Her [place] score is elevated 10/24. At this point will request that the patient undergo a sleep study. Since she is on oxygen she will require an in-lab study. 10/17/2023 the patient is here for pulmonary follow-up visit. She has been very sickly the last 2 weeks. The patient has had positive sick contacts in the home as her grandchild was sick and the rest of the family became very sick. Ultimately her symptoms worsened significantly activating her asthma. She was having significant chest tightness and wheezing. Her COVID testing was negative. The child that initially was sick was also tested for RSV and flu and COVID and all negative. The patient did call the office and we did start her on doxycycline and also a course of prednisone. The patient has been tapering down now 30 mg of prednisone. She does feel better but still having significant nasal congestion nasal obstruction sinus pressure. Moderate severity. Hoarseness. Also complains of a cough. Also having chest tightness and wheezing still. She is using her nebulizer. She is also using her oxygen. She has not had any recent x-rays imaging studies. The patient may have a component of sinusitis this point and will treat her accordingly. In addition to that she continues to have significant daytime drowsiness. She did have a in-lab sleep study that was personally reviewed. The patient does have significant sleep apnea and was recommended that she have a CPAP titration study. We did requested but was initially denied by the insurance. We are still waiting approval at this time. The patient does have an elevated [place] score of 12/24. The patient has significant risk factors and a positive sleep study with evidence of respiratory failure. Therefore a titration study would be most important to be able to provide her with the Appropriate PAP therapy. Also, very importantly the patient has been having issues with headaches. She does have a blood pressure meter at home and she did bring some of the readings which were very alarming. The highest blood pressure was systolic blood pressure about 210 and diastolic pressure also elevated overall 108. the patient has a prescription for torsemide but she stopped taking it in view of the fact that she was urinating a lot while being on the prednisone. In addition to that she has a prescription for verapamil but does not always take it either. At this point the patient understands that broad pressure-like that could result in stroke and can result in serious end-organ damage. The patient has been reluctant to go to the ER specially because of all the illnesses that she has been exposed to already in the end since that will be in the ER. 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 [facility] Medical History (Updated 10/17/23 @ 22:34 by Christopher Clark MD) Lower extremity edema Asthma Steroid dependent Hematuria Chronic respiratory failure COPD exacerbation Sinusitis VIKAS (obstructive sleep apnea) Asthma-COPD overlap syndrome Surgical History (Updated 05/10/20 @ 13:06 by Tova Mallory LPN) Carpal tunnel syndrome Family History (Updated 06/04/20 @ 22:35 by Christopher Clark MD) Sister Asthma Social History (Updated 03/31/21 @ 15:13 by Naina Bragg Merly) Patient Tobacco Use Status: Never used Tobacco Review of Systems Const Reports daytime sleepiness, Reports difficulty sleeping, Reports fatigue, Reports headache(s), Reports malaise, Denies night sweats and Reports stops breathing during sleep Eyes Reports no additional complaints, Denies eye discharge, Denies irritation and Denies photophobia ENT Denies change in voice, Reports headache(s), Denies lip swelling, Denies mouth pain, Reports nasal congestion, Reports nasal discharge, Reports sinus pain, Reports sinus pressure and Denies tongue swelling Card Reports chest pain, Reports leg edema and Reports dyspnea on exertion Resp Reports cough, Reports pain with cough, Reports dyspnea on exertion and Denies wheezing GI Reports abdominal pain, Reports dyspepsia and Reports heartburn Denies dysuria Musc Reports as per HPI, Reports arthralgias and Reports limited range of motion Skin/Breast Reports change in pigmentation Neuro Denies Neuro-related abnormal movements and Reports headache(s) Psych Denies no additional complaints Endo Reports fatigue Arsh/Lymph Denies easy bleeding and Denies lymphadenopathy Aller/Immun Denies lip swelling, Denies tongue swelling and Denies wheezing Physical Exam Vital Signs: Last Vital Signs Pulse 89 10/17/23 14:55 Pulse Ox 95 10/17/23 14:55 Oxygen Delivery Method Room Air 10/17/23 14:55 BMI result Body Mass Index 42.3 Const General: alert Eyes Direct Ophthalmoscopy: No photophobia Neck Neck: Yes normal visual inspection, Yes full ROM and Yes no lymphadenopathy Chest Chest palpation & inspection: normal inspection of the chest Resp Effort & Inspection: normal respiratory effort, able to speak in complete sentences and no audible wheezes Auscultation: no crackles, no rales, no rhonchi, no wheezes and diminished lung sounds Cardio Rate: regular rate Rhythm: regular rhythm Heart sounds: S1 normal heart sound present and S2 normal heart sound present GI Palpation (GI): Soft to palpation and nontender Auscultation: normal bowel sounds Skin General skin exam: no rashes or lesions noted and other (vitiligo) Extrem General: No clubbing, No cyanosis and Yes edema Assessment & Plan Assessment & Plan (1) Chronic respiratory failure: Code(s): J96.10 - Chronic respiratory failure, unspecified whether with hypoxia or hypercapnia Qualifiers: Respiratory failure complication: hypoxia Qualified Code(s): J96.11 - Chronic respiratory failure with hypoxia (2) VIKAS (obstructive sleep apnea): Code(s): G47.33 - Obstructive sleep apnea (adult) (pediatric) (3) Asthma-COPD overlap syndrome: Code(s): J44.9 - Chronic obstructive pulmonary disease, unspecified (4) COPD exacerbation: Code(s): J44.1 - Chronic obstructive pulmonary disease with (acute) exacerbation (5) Sinusitis: Code(s): J32.9 - Chronic sinusitis, unspecified Qualifiers: Sinusitis location: unspecified location Chronicity: acute Recurrence: recurrent Qualified Code(s): J01.91 - Acute recurrent sinusitis, unspecified (6) Hypertensive urgency: Code(s): I16.0 - Hypertensive urgency Plan continue prednisone taper start Augmentin start cough medication CXR needs to stop Sudafed in view of the significantly elevated blood pressures start budesonide nebs twice a day. Needs to rinse after the nebulized therapy I did provide her with a prescription of hydralazine as needed in view of the significantly elevated blood pressure. She also needs to test her blood pressure meter with her doctors machine to make sure that is accurate. Xolair and allergy shots monthly pretreat with Benadryl and tylenol continue Stiolto/QVAR Continue Daliresp continue DuoNeb continue oxygen supplementation. POC for portability in lab PSG titration for VIKAS Lidoderm patch reflux diet PPI F/U 2-3 months Orders: Orders XR chest 2V Today J44.1 - Chronic obstructive pulmonary disease with (acute) exacerbation Medications: New amoxicillin-pot clavulanate 875-125 mg 1 tab PO BID 10 days 20 tabs 0RF budesonide 0.5 mg (2 mL) inhalation BID 30 days 120 mL 11RF J44.9 - Chronic obstructive pulmonary disease, unspecified hydralazine 20 mg (2 x 10 mg) PO DAILY 30 days PRN 30 tabs 0RF hypertension codeine-guaifenesin 10-100 mg/5 mL 10 mL PO Q6H 10 days PRN 300 mL 0RF cough Coding Level of Care Code Est Pt Level 5 (14311) Diagnoses Chronic respiratory failure with hypoxia J96.11 Respiratory failure complication: hypoxia VIKAS (obstructive sleep apnea) G47.33 Asthma-COPD overlap syndrome J44.9 COPD exacerbation J44.1 Acute recurrent sinusitis, unspecified location J01.91 Sinusitis location: unspecified location Chronicity: acute Recurrence: recurrent Hypertensive urgency I16.0 Time Spent (min) 45
== END 2023-10-17 15:41 | disposition home or self-care (01) ==
PROVIDERS: PCP Pediatrics; Visit Provider Hospitalist
DX: J44.1 Chronic obstructive pulmonary disease with (acute) exacerbation (principal); J96.11 Chronic respiratory failure with hypoxia; G47.33 Obstructive sleep apnea (adult) (pediatric); J01.91 Acute recurrent sinusitis, unspecified; I16.0 Hypertensive urgency
CPT/HCPCS: 99215

== ENCOUNTER → 2023-11-23 20:30 | Outpatient (REF) | payer OTHER, SELFPAY | LOC: HO.SL 20:30 | PROVIDERS: PCP Pediatrics; Visit Provider Hospitalist | DX: G47.33 Obstructive sleep apnea (adult) (pediatric) (principal) | CPT/HCPCS: 95811 ==

== ENCOUNTER → 2023-11-23 21:04 | Outpatient (BNV) | payer OTHER, SELFPAY | PROVIDERS: PCP Pediatrics; Visit Provider Internal Medicine | DX: G47.33 Obstructive sleep apnea (adult) (pediatric) (principal) | CPT/HCPCS: 95811 ==

== ENCOUNTER 2024-01-16 14:52 | Outpatient (AMB) | payer OTHER, SELFPAY ==
--- NOTE | 2024-01-16 15:13 | A.OFFVIS_ITS ---
Vital Signs 01/16/24 15:14 Height 5 ft 6 in Weight 262 lb 5.601 oz BMI 42.3 Pulse 88 Pulse Source Pulse Oximeter Pulse Oximetry (%) 96 Oxygen Delivery Method Room Air Intake Visit Reasons: COPD Bulldogger Required: No Allergies topiramate [From Topamax] Allergy (Mild, Verified 01/16/24 15:16) Tingling in mouth and lips gabapentin Allergy (Verified 01/16/24 15:16) Hot Flashes HPI Comments Details: The patientis a 58 y/o woman with underlying chronic respiratory failure on oxygen in addition to COPD, VIKAS on CPAP. She is oxygen dependent. She does have dyspnea on exertion. Moderate in amount. The oxygen has been helpful. However, it is hard for her to carry the oxygen tanks. She is concerned about the finding on the CT scan of the chest demonstrating 1.7 cm splenic artery aneurysm. Therefore, I will refer her to vascular surgeon. Overall, the patient is doing well from a respiratory standpoint. She understand that she does have a moderate risk for perioperative pulmonary complications. I did review her sleep study from January 2018 demonstrating moderate sleep apnea with significant hypoxia. I will send a new prescription for CPAP to the [facility]. When she Star CPAP for we can do an overnight oximetry to see if she does need oxygen with her CPAP. She continues using her oxygen. She is still having issues with a battery operated portable oxygen concentrator. She has a hard time caring her oxygen tanks because of her significant arthritis and other comorbidities. The portable oxygen concentrator will provide better portability outside of her home. 07/18/2023 the patient is here for a pulmonary follow-up visit. Overall she is been doing well on Xolair and also the allergy shots. Although, she is been having significant headaches. She attributes this to the Xolair. She had been pretreating with Tylenol and Benadryl in in the past that did help with the headaches. Therefore, will provide with the Tylenol she already has a Benadryl so she can continue to do that pre medication treatment to minimize the adverse effects. Her respiratory therapy has been able to stabilize her respiratory symptoms significantly. She is still using her oxygen as prescribed with good effect. she has been started to have symptoms of sinusitis. She is concerns that is developing to full flush sinusitis. Will make sure to provide him medications to have case her symptoms worsen. In the meantime the patient has been having daytime drowsiness. she does use oxygen and also has a history of sleep apnea in the past. Her [place] score is elevated 10/24. At this point will request that the patient undergo a sleep study. Since she is on oxygen she will require an in-lab study. 10/17/2023 the patient is here for pulmonary follow-up visit. She has been very sickly the last 2 weeks. The patient has had positive sick contacts in the home as her grandchild was sick and the rest of the family became very sick. Ultimately her symptoms worsened significantly activating her asthma. She was having significant chest tightness and wheezing. Her COVID testing was negative. The child that initially was sick was also tested for RSV and flu and COVID and all negative. The patient did call the office and we did start her on doxycycline and also a course of prednisone. The patient has been tapering down now 30 mg of prednisone. She does feel better but still having significant nasal congestion nasal obstruction sinus pressure. Moderate severity. Hoarseness. Also complains of a cough. Also having chest tightness and wheezing still. She is using her nebulizer. She is also using her oxygen. She has not had any recent x-rays imaging studies. The patient may have a component of sinusitis this point and will treat her accordingly. In addition to that she continues to have significant daytime drowsiness. She did have a in-lab sleep study that was personally reviewed. The patient does have significant sleep apnea and was recommended that she have a CPAP titration study. We did requested but was initially denied by the insurance. We are still waiting approval at this time. The patient does have an elevated [place] score of 1 2/24. The patient has significant risk factors and a positive sleep study with evidence of respiratory failure. Therefore a titration study would be most important to be able to provide her with the Appropriate PAP therapy. Also, very importantly the patient has been having issues with headaches. She does have a blood pressure meter at home and she did bring some of the readings which were very alarming. The highest blood pressure was systolic blood pressure about 210 and diastolic pressure also elevated overall 108. the patient has a prescription for torsemide but she stopped taking it in view of the fact that she was urinating a lot while being on the prednisone. In addition to that she has a prescription for verapamil but does not always take it either. At this point the patient understands that broad pressure-like that could result in stroke and can result in serious end-organ damage. The patient has been reluctant to go to the ER specially because of all the illnesses that she has been exposed to already in the end since that will be in the ER. 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 01/16/2024 the patient is here for pulmonary follow-up visit. She continues to have significant daytime drowsiness. Her [place] score is elevated 07/08. She did have a titration sleep study. We did review. Appearance that she did very well on CPAP of 9 cm. The patient needs to start CPAP at this time. She has significantly elevated blood pressures with systolic in the 200s. She has had hard to control blood pressure and is likely from the untreated sleep apnea. She also has significant headaches and migraines the the untreated sleep apnea is likely contributing to. Therefore, will request a CPAP of 9 cm soon as possible. She also is on oxygen so therefore will add her oxygen supplementation CPAP. Hopefully will help her blood pressure. She continues use respiratory medicine. She still has a cough. The cough is persistent. Moderate severity. Since requesting cough medication. She continues with respiratory medication. For some reason the Daliresp has not been provided in the last 2 weeks she is already noticed worsening respiratory symptoms. Will go ahead and request Daliresp at the pharmacy again. She has been on it for many years and therefore is therapy that she needs to continue. [facility] Medical History (Updated 10/17/23 @ 22:34 by Christopher Clark MD) Lower extremity edema Asthma Steroid dependent Hematuria Chronic respiratory failure COPD exacerbation Sinusitis VIKAS (obstructive sleep apnea) Asthma-COPD overlap syndrome Surgical History (Updated 05/10/20 @ 13:06 by Tova Mallory LPN) Carpal tunnel syndrome Family History (Updated 06/04/20 @ 22:35 by Christopher Clark MD) Sister Asthma Social History (Updated 03/31/21 @ 15:13 by CADEN Whitehead) Patient Tobacco Use Status: Never used Tobacco Review of Systems Const Reports daytime sleepiness, Reports difficulty sleeping, Reports fatigue, Reports headache(s), Reports malaise, Denies night sweats and Reports stops breathing during sleep Eyes Reports no additional complaints, Denies eye discharge, Denies irritation and D enies photophobia ENT Denies change in voice, Reports headache(s), Denies lip swelling, Denies mouth pain, Reports nasal congestion, Reports nasal discharge, Reports sinus pain, Reports sinus pressure and Denies tongue swelling Card Reports chest pain, Reports leg edema and Reports dyspnea on exertion Resp Reports cough, Reports pain with cough, Reports dyspnea on exertion and Denies wheezing GI Reports abdominal pain, Reports dyspepsia and Reports heartburn Denies dysuria Musc Reports as per HPI, Reports arthralgias and Reports limited range of motion Skin/Breast Reports change in pigmentation Neuro Denies Neuro-related abnormal movements and Reports headache(s) Psych Denies no additional complaints Endo Reports fatigue Arsh/Lymph Denies easy bleeding and Denies lymphadenopathy Aller/Immun Denies lip swelling, Denies tongue swelling and Denies wheezing Physical Exam Vital Signs: Last Vital Signs Pulse 88 01/16/24 15:14 Pulse Ox 96 01/16/24 15:14 Oxygen Delivery Method Room Air 01/16/24 15:14 BMI result Body Mass Index 42.3 Const General: alert Eyes Direct Ophthalmoscopy: No photophobia Neck Neck: Yes normal visual inspection, Yes full ROM and Yes no lymphadenopathy Chest Chest palpation & inspection: normal inspection of the chest Resp Effort & Inspection: normal respiratory effort, able to speak in complete sentences and no audible wheezes Auscultation: no crackles, no rales, no rhonchi, no wheezes and diminished lung sounds Cardio Rate: regular rate Rhythm: regular rhythm Heart sounds: S1 normal heart sound present and S2 normal heart sound present GI Palpation (GI): Soft to palpation and nontender Auscultation: normal bowel sounds Skin General skin exam: no rashes or lesions noted and other (vitiligo) Extrem General: No clubbing, No cyanosis and Yes edema Assessment & Plan Assessment & Plan (1) Chronic respiratory failure: Code(s): J96.10 - Chronic respiratory failure, unspecified whether with hypoxia or hypercapnia Category: Medical Qualifiers: Respiratory failure complication: hypoxia Qualified Code(s): J96.11 - Chronic respiratory failure with hypoxia (2) VIKAS (obstructive sleep apnea): Code(s): G47.33 - Obstructive sleep apnea (adult) (pediatric) Category: Medical (3) Asthma-COPD overlap syndrome: Code(s): J44.9 - Chronic obstructive pulmonary disease, unspecified Category: Medical Plan start CPAP 9cm with oxygen Xolair and allergy shots monthly pretreat with Benadryl and tylenol continue Stiolto/QVAR Continue Daliresp continue DuoNeb continue oxygen supplementation. POC for portability reflux diet PPI F/U 2-3 months Medications: Refilled roflumilast (Daliresp) 500 mcg PO DAILY 90 tabs 3RF azithromycin Take 1 tablet on Tuesday/Tuesday/Tuesday 250 mg PO 3XW 28 days 12 tabs 6RF K21.9 - Gastro-esophageal reflux disease without esophagitis ipratropium-albuterol 0.5 mg-3 mg(2.5 mg base)/3 mL 3 mL inhalation QID PRN 3,240 mL 0RF for wheezing J44.1 - Chronic obstructive pulmonary disease with (acute) exacerbation montelukast 10 mg PO DAILY 30 tabs 11RF codeine-guaifenesin 10-100 mg/5 mL 10 mL PO Q6H 10 days PRN 300 mL 0RF cough tiotropium-olodaterol 2.5-2.5 mcg/actuation (Stiolto Respimat) 2 puffs inhalation DAILY 30 days 4 grams 11RF Coding Level of Care Code Est Pt Level 4 (67250) Diagnoses Chronic respiratory failure with hypoxia J96.11 Respiratory failure complication: hypoxia VIKAS (obstructive sleep apnea) G47.33 Asthma-COPD overlap syndrome J44.9 Time Spent (min) 18
[2024-01-16 15:14] VITALS: PULSE 88; O2SAT 96; BMI 42.3
== END 2024-01-16 15:48 | disposition home or self-care (01) ==
PROVIDERS: PCP Pediatrics; Visit Provider Hospitalist
DX: J96.11 Chronic respiratory failure with hypoxia (principal); G47.33 Obstructive sleep apnea (adult) (pediatric); J44.9 Chronic obstructive pulmonary disease, unspecified
CPT/HCPCS: 99214

== ENCOUNTER → 2024-01-16 14:52 | Outpatient (BNVA) | payer OTHER, SELFPAY | PROVIDERS: PCP Pediatrics; Visit Provider Hospitalist | DX: J96.11 Chronic respiratory failure with hypoxia (principal); G47.33 Obstructive sleep apnea (adult) (pediatric); J44.9 Chronic obstructive pulmonary disease, unspecified; Z99.81 Dependence on supplemental oxygen; Z99.89 Dependence on other enabling machines and devices | CPT/HCPCS: 99212 ==

== ENCOUNTER 2024-04-12 14:52 | Outpatient (AMB) | payer OTHER, SELFPAY ==
[2024-04-12 14:58] VITALS: PULSE 69; O2SAT 95; BMI 42.3
--- NOTE | 2024-04-12 14:58 | A.OFFVIS_ITS ---
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 She is oxygen dependent. She does have dyspnea on exertion. Moderate in amount. The oxygen has been helpful. However, it is hard for her to carry the oxygen tanks. She is concerned about the finding on the CT scan of the chest demonstrating 1.7 cm splenic artery aneurysm. Therefore, I will refer her to vascular surgeon. Overall, the patient is doing well from a respiratory standpoint. She understand that she does have a moderate risk for perioperative pulmonary complications. I did review her sleep study from January 2018 demonstrating moderate sleep apnea with significant hypoxia. I will send a new prescription for CPAP to the [facility]. When she Star CPAP for we can do an overnight oximetry to see if she does need oxygen with her CPAP. She continues using her oxygen. She is still having issues with a battery operated portable oxygen concentrator. She has a hard time caring her oxygen tanks because of her significant arthritis and other comorbidities. The portable oxygen concentrator will provide better portability outside of her home. 07/18/2023 the patient is here for a pulmonary follow-up visit. Overall she is been doing well on Xolair and also the allergy shots. Although, she is been having significant headaches. She attributes this to the Xolair. She had been pretreating with Tylenol and Benadryl in in the past that did help with the headaches. Therefore, will provide with the Tylenol she already has a Benadryl so she can continue to do that pre medication treatment to minimize the adverse effects. Her respiratory therapy has been able to stabilize her respiratory symptoms significantly. She is still using her oxygen as prescribed with good effect. she has been started to have symptoms of sinusitis. She is concerns that is developing to full flush sinusitis. Will make sure to provide him medi cations to have case her symptoms worsen. In the meantime the patient has been having daytime drowsiness. she does use oxygen and also has a history of sleep apnea in the past. Her [place] score is elevated 10/24. At this point will request that the patient undergo a sleep study. Since she is on oxygen she will require an in-lab study. 10/17/2023 the patient is here for pulmonary follow-up visit. She has been very sickly the last 2 weeks. The patient has had positive sick contacts in the home as her grandchild was sick and the rest of the family became very sick. Ultimately her symptoms worsened significantly activating her asthma. She was having significant chest tightness and wheezing. Her COVID testing was negative. The child that initially was sick was also tested for RSV and flu and COVID and all negative. The patient did call the office and we did start her on doxycycline and also a course of prednisone. The patient has been tapering down now 30 mg of prednisone. She does feel better but still having significant nasal congestion nasal obstruction sinus pressure. Moderate severity. Hoarseness. Also complains of a cough. Also having chest tightness and wheez ing still. She is using her nebulizer. She is also using her oxygen. She has not had any recent x-rays imaging studies. The patient may have a component of sinusitis this point and will treat her accordingly. In addition to that she continues to have significant daytime drowsiness. She did have a in-lab sleep study that was personally reviewed. The patient does have significant sleep apnea and was recommended that she have a CPAP titration study. We did requested but was initially denied by the insurance. We are still waiting approval at this time. The patient does have an elevated [place] score of 12/24. The patient has significant risk factors and a positive sleep study with evidence of respiratory failure. Therefore a titration study would be most important to be able to provide her with the Appropriate PAP therapy. Also, very importantly the patient has been having issues with headaches. She does have a blood pressure meter at home and she did bring some of the readings which were very alarming. The highest blood pressure was systolic blood pressure about 210 and diastolic pressure also elevated overall 108. the patient has a prescription for torsemide but she stopped taking it in view of the fact that she was urinating a lot while being on the prednisone. In addition to that she has a prescription for verapamil but does not always take it either. At this point the patient understands that broad pressure-like that could result in stroke and can result in serious end-organ damage. The patient has been reluctant to go to the ER specially because of all the illnesses that she has been exposed to already in the end since that will be in the ER. I did give her a prescription for small dose of hydralazine that she can use as needed while she weighs see her primary care doctor and color strainer. 01/16/2024 the patient is here for pulmonary follow-up visit. She continues to have significant daytime drowsiness. Her [place] score is elevated 11/24. She did have a titration sleep study. We did review. Appearance that she did very well on CPAP of 9 cm. The patient needs to start CPAP at this time. She has significantly elevated blood pressures with systolic in the 200s. She has had hard to control blood pressure and is likely from the untreated sleep apnea. She also has significant headaches and migraines the the untreated sleep apnea is likely contributing to. Therefore, will request a CPAP of 9 cm soon as possible. She also is on oxygen so therefore will add her oxygen supplementation CPAP. Hopefully will help her blood pressure. She continues use respiratory medicine. She still has a cough. The cough is persistent. Moderate severity. Since requesting cough medication. She continues with respiratory medication. For some reason the Daliresp has not been provided in the last 2 weeks she is already noticed worsening respiratory symptoms. Will go ahead and request Daliresp at the pharmacy again. She has been on it for many years and therefore is therapy that she needs to continue. 04/12/2024 the patient is here for a pulmonary follow-up visit. Overall the patient has been doing fair. She was done in [place] for about a month. There she got sick with a respiratory illness. She did have some antibiotics and she did taken. She also had a little bit of prednisone which she took that as well. Although she is still not better. She feels have significant hoarseness and cough. Productive cough at times. Moderate severity. She has been using all her respiratory medications. Currently she is doing a little better from how she was before. In addition to that the patient is still struggling with her sleep. She has an elevated [place] score of 10/24. We did request a CPAP for her during the last visit but she has yet to receive it. We did call the [employer] company we did rectify that they received all the paperwork to make sure that she gets her equipment. Once she situated she is going to start using the CPAP with the oxygen. Will follow-up in about 3 months and she can bring her CPAP with her so we can assess her response to therapy. Her last chest x-ray was back in 11/02/2023 she did have some areas of opacities and atelectasis. Will plan to repeat her x-ray when she returns in 3 months. If she continues to be symptomatic she can always call so we can get the x-ray on sooner. If the x-ray continues to be abnormal will consider getting a CT scan of the chest. [facility] Medical History (Updated 10/17/23 @ 22:34 by Christopher Clark MD) Lower extremity edema Asthma Steroid dependent Hematuria Chronic respiratory failure COPD exacerbation Sinusitis VIKAS (obstructive sleep apnea) Asthma-COPD overlap syndrome Surgical History (Updated 05/10/20 @ 13:06 by Tova Mallory LPN) Carpal tunnel syndrome Family History (Updated 06/04/20 @ 22:35 by Christopher Clark MD) Sister Asthma Social History (Updated 03/31/21 @ 15:13 by CADEN Whitehead) Patient Tobacco Use Status: Never used Tobacco Review of Systems Const Reports daytime sleepiness, Reports difficulty sleeping, Reports fatigue, Reports headache(s), Reports malaise, Denies night sweats and Reports stops breathing during sleep Eyes Reports no additional complaints, Denies eye discharge, Denies irritation and Denies photophobia ENT Denies change in voice, Reports headache(s), Denies lip swelling, Denies mouth pain, Reports nasal congestion, Reports nasal discharge, Reports sinus pain, Reports sinus pressure and Denies tongue swelling Card Reports leg edema and Reports dyspnea on exertion Resp Reports cough, Reports pain with cough, Reports dyspnea on exertion and Denies wheezing GI Reports abdominal pain, Reports dyspepsia and Reports heartburn Denies dysuria Musc Reports as per HPI, Reports arthralgias and Reports limited range of motion Skin/Breast Reports change in pigmentation Neuro Denies Neuro-related abnormal movements and Reports headache(s) Psych Denies no additional complaints Endo Reports fatigue Arsh/Lymph Denies easy bleeding and Denies lymphadenopathy Aller/Immun Denies lip swelling, Denies tongue swelling and Denies wheezing Physical Exam Vital Signs: Last Vital Signs Pulse 69 04/12/24 14:58 Pulse Ox 95 04/12/24 14:58 Oxygen Delivery Method Room Air 04/12/24 14:58 BMI result Body Mass Index 42.3 Const General: alert Eyes Direct Ophthalmoscopy: No photophobia Neck Neck: Yes normal visual inspection, Yes full ROM and Yes no lymphadenopathy Chest Chest palpation & inspection: normal inspection of the chest Resp Effort & Inspection: normal respiratory effort, able to speak in complete sentences and no audible wheezes Auscultation: no crackles, no rales, no rhonchi, no wheezes and diminished lung sounds Cardio Rate: regular rate Rhythm: regular rhythm Heart sounds: S1 normal heart sound present and S2 normal heart sound present GI Palpation (GI): Soft to palpation and nontender Auscultation: normal bowel sounds Skin General skin exam: no rashes or lesions noted and other (vitiligo) Extrem General: No clubbing, No cyanosis and Yes edema Assessment & Plan Assessment & Plan (1) Chronic respiratory failure: Code(s): J96.10 - Chronic respiratory failure, unspecified whether with hypoxia or hypercapnia Category: Medical Qualifiers: Respiratory failure complication: hypoxia Qualified Code(s): J96.11 - Chronic respiratory failure with hypoxia (2) VIKAS (obstructive sleep apnea): Code(s): G47.33 - Obstructive sleep apnea (adult) (pediatric) Category: Medical (3) Asthma-COPD overlap syndrome: Code(s): J44.9 - Chronic obstructive pulmonary disease, unspecified Category: Medical (4) Sinusitis: Code(s): J32.9 - Chronic sinusitis, unspecified Category: Medical Qualifiers: Sinusitis location: unspecified location Chronicity: acute Recurrence: recurrent Qualified Code(s): J01.91 - Acute recurrent sinusitis, unspecified Plan start CPAP 9cm with oxygen Xolair and allergy shots [id number], pretreat with Benadryl and tylenol continue Stiolto/QVAR Continue Daliresp continue DuoNeb continue oxygen supplementation. POC for portability reflux diet PPI F/U 2-3 months Medications: New amoxicillin-pot clavulanate 875-125 mg 1 tab PO BID 28 tabs 0RF 14 days Refilled prednisone PO daily; Take 6 tabs daily x 3 days, then 5 tabs x 3 days, then 4 tabs x 3 days, then 3 tabs x 3 days, then 2 tabs daily x 3 days, then 1 tab x 3 days to complete. 63 tabs 0RF 18 days Coding Level of Care Code Est Pt Level 4 (67894) Complex EM visit Add On G2211 Diagnoses Chronic respiratory failure with hypoxia J96.11 Respiratory failure complication: hypoxia VIKAS (obstructive sleep apnea) G47.33 Asthma-COPD overlap syndrome J44.9 Acute recurrent sinusitis, unspecified location J01.91 Sinusitis location: unspecified location Chronicity: acute Recurrence: recurrent Time Spent (min) 20
== END 2024-04-12 15:22 | disposition home or self-care (01) ==
PROVIDERS: PCP Pediatrics; Visit Provider Hospitalist
DX: J96.11 Chronic respiratory failure with hypoxia (principal); G47.33 Obstructive sleep apnea (adult) (pediatric); J44.9 Chronic obstructive pulmonary disease, unspecified; J01.91 Acute recurrent sinusitis, unspecified
CPT/HCPCS: 99214; G2211

== ENCOUNTER → 2024-04-12 14:52 | Outpatient (BNVA) | payer OTHER, SELFPAY | PROVIDERS: PCP Pediatrics; Visit Provider Hospitalist | DX: J44.9 Chronic obstructive pulmonary disease, unspecified (principal); J96.11 Chronic respiratory failure with hypoxia; J01.91 Acute recurrent sinusitis, unspecified; G47.33 Obstructive sleep apnea (adult) (pediatric) | CPT/HCPCS: 99212 ==

== ENCOUNTER 2024-07-10 14:10 | Outpatient (AMB) | payer OTHER, SELFPAY ==
[2024-07-10 14:19] VITALS: BP 122/78; PULSE 68; O2SAT 96; BMI 37.0
--- NOTE | 2024-07-10 14:19 | A.OFFVIS_ITS ---
Vital Signs 07/10/24 14:19 Height 5 ft 6 in Weight 229 lb 4.492 oz BMI 37.0 BP 122/78 Blood Pressure Location Lt brachial Position Sitting Pulse 68 Pulse Source Pulse Oximeter Pulse Oximetry (%) 96 Oxygen Delivery Method Nasal Cannula Oxygen Flow Rate 3 Intake Visit Reasons: 6 Mins Evaluation/COPD Assisted Living Manager Required: No Allergies topiramate [From Topamax] Allergy (Mild, Verified 07/10/24 14:29) Tingling in mouth and lips gabapentin Allergy (Verified 07/10/24 14:29) Hot Flashes Medication List - Last Reconciled 07/10/24 by Elva Law LPN acetaminophen (Tylenol Extra Strength) 1,000 mg (2 x 500 mg) PO BID PRN 30 days albuterol sulfate 90 mcg/actuation (Ventolin HFA) 2 puffs inhalation Q6H PRN amoxicillin-pot clavulanate 875-125 mg 1 tab PO BID 14 days azithromycin 250 mg PO 3XW 28 days budesonide 0.5 mg (2 mL) inhalation BID 30 days buspirone 30 mg PO BID ywpwqhwfzh-tclbmhqkssayz-kfld 50-325-40 mg 1 cap PO Q6H PRN cefpodoxime 200 mg PO BID cetirizine (Zyrtec) 10 mg PO DAILY 30 days cholecalciferol (vitamin D3) 50 mcg PO DAILY 30 days citalopram 40 mg PO DAILY codeine-guaifenesin 10-100 mg/5 mL 10 mL PO Q6H PRN 10 days dicyclomine 20 mg PO BID diphenhydramine HCl (Benadryl Allergy) 25 mg PO BEDTIME 90 days doxycycline monohydrate 100 mg PO BID 14 days empty container (Sharps Container) As directed epinephrine (EpiPen 2-Alfonso) 0.3 mg (0.3 mL) IM Q10M PRN eszopiclone (Lunesta) 2 mg PO BEDTIME ferrous sulfate 325 mg PO DAILY fluticasone furoate 27.5 mcg/actuation 1 spray intranasal DAILY furosemide (Lasix) 20 mg PO DAILY gabapentin mg PO hydralazine 20 mg (2 x 10 mg) PO DAILY PRN 30 days hydroxyzine HCl 25 mg PO TID PRN 30 days ibuprofen 600 mg PO Q8H PRN ipratropium bromide 17 mcg/actuation (Atrovent HFA) 2 puffs inhalation Q8H ipratropium bromide 2 sprays intranasal BID-TID PRN ipratropium-albuterol 0.5 mg-3 mg(2.5 mg base)/3 mL 3 mL inhalation QID PRN lidocaine 5% (Lidoderm) 1 patch topical DAILY 30 days melatonin 5 mg PO BEDTIME PRN 30 days metoprolol tartrate 25 mg PO BID 30 days mometasone 50 mcg/actuation (Nasonex) 2 sprays intranasal DAILY montelukast 10 mg PO DAILY nitroglycerin 0.4 mg sublingual Q5M PRN omalizumab (Xolair) 225 mg subcut Q2W omeprazole 40 mg PO DAILY 30 days ondansetron 4 mg PO Q8H PRN oxycodone 10 mg PO TID PRN oxycodone ER mg PO oxycodone ER (OxyContin) 60 mg PO TID prednisone PO daily; Take 6 tabs daily x 3 days, then 5 tabs x 3 days, then 4 tabs x 3 days, then 3 tabs x 3 days, then 2 tabs daily x 3 days, then 1 tab x 3 days to complete. 18 days prednisone PO daily; Take 2 tabs daily x 5 days, then 1 tablet daily x 5 days 10 days pseudoephedrine HCl ER (Sudafed 12 Hour) 120 mg PO Q12H quetiapine 200 mg PO DAILY roflumilast (Daliresp) 500 mcg PO DAILY sumatriptan succinate 50 mg PO Q2-4H PRN tiotropium-olodaterol 2.5-2.5 mcg/actuation (Stiolto Respimat) 2 puffs inhalation DAILY 30 days zileuton (Zyflo) 600 mg PO Q6H zolpidem 10 mg PO BEDTIME PRN HPI Comments Details: The patientis a 59 y/o woman with underlying chronic respiratory failure on oxygen in addition to COPD, VIKAS on CPAP. She is oxygen dependent. She does have dyspnea on exertion. Moderate in amount. The oxygen has been helpful. However, it is hard for her to carry the oxygen tanks. She is concerned about the finding on the CT scan of the chest demonstrating 1.7 cm splenic artery aneurysm. Therefore, I will refer her to vascular surgeon. Overall, the patient is doing well from a respiratory standpoint. She understand that she does have a moderate risk for perioperative pulmonary complications. I did review her sleep study from January 2018 demonstrating moderate sleep apnea with significant hypoxia. I will send a new prescription for CPAP to the [facility]. When she Star CPAP for we can do an overnight oximetry to see if she does need oxygen with her CPAP. She continues using her oxygen. She is still having issues with a battery operated portable oxygen concentrator. She has a hard time caring her oxygen tanks because of her significant arthritis and other comorbidities. The portable oxygen concentrator will provide better portability outside of her home. 07/18/2023 the patient is here for a pulmonary follow-up visit. Overall she is been doing well on Xolair and also the allergy shots. Although, she is been having significant headaches. She attributes this to the Xolair. She had been pretreating with Tylenol and Benadryl in in the past that did help with the headaches. Therefore, will provide with the Tylenol she already has a Benadryl so she can continue to do that pre medication treatment to minimize the adverse effects. Her respiratory therapy has been able to stabilize her respiratory symptoms significantly. She is still using her oxygen as prescribed with good effect. she has been started to have symptoms of sinusitis. She is concerns that is developing to full flush sinusitis. Will make sure to provide him medications to have case her symptoms worsen. In the meantime the patient has been having daytime drowsiness. she does use oxygen and also has a history of sleep apnea in the past. Her Keeler score is elevated 10/24. At this point will request that the patient undergo a sleep study. Since she is on oxygen she will require an in-lab study. 10/17/2023 the patient is here for pulmonary follow-up visit. She has been very sickly the last 2 weeks. The patient has had positive sick contacts in the home as her grandchild was sick and the rest of the family became very sick. Ultimately her symptoms worsened significantly activating her asthma. She was having significant chest tightness and wheezing. Her COVID testing was negative. The child that initially was sick was also tested for RSV and flu and COVID and all negative. The patient did call the office and we did start her on doxycycline and also a course of prednisone. The patient has been tapering down now 30 mg of prednisone. She does feel better but still having significant nasal congestion nasal obstruction sinus pressure. Moderate severity. Hoarseness. Also complains of a cough. Also having chest tightness and wheezing still. She is using her nebulizer. She is also using her oxygen. She has not had any recent x-rays imaging studies. The patient may have a component of sinusitis this point and will treat her accordingly. In addition to that she continues to have significant daytime drowsiness. She did have a in-lab sleep study that was personally reviewed. The patient does have significant sleep apnea and was recommended that she have a CPAP titration study. We did requested but was initially denied by the insurance. We are still waiting approval at this time. The patient does have an elevated Keeler score of 12/24. The patient has significant risk factors and a positive sleep study with evidence of respiratory failure. Therefore a titration study would be most important to be able to provide her with the Appropriate PAP therapy. Also, very importantly the patient has been having issues with headaches. She does have a blood pressure meter at home and she did bring some of the readings which were very alarming. The highest blood pressure was systolic blood pressure about 210 and diastolic pressure also elevated overall 108. the patient has a prescription for torsemide but she stopped taking it in view of the fact that she was urinating a lot while being on the prednisone. In addition to that she has a prescription for verapamil but does not always take it either. At this point the patient understands that broad pressure-like that could result in stroke and can result in serious end-organ damage. The patient has been reluctant to go to the ER specially because of all the illnesses that she has been exposed to already in the end since that will be in the ER. 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 01/16/2024 the patient is here for pulmonary follow-up visit. She continues to have significant daytime drowsiness. Her Keeler score is elevated 07/08. She did have a titration sleep study. We did review. Appearance that she did very well on CPAP of 9 cm. The patient needs to start CPAP at this time. She has significantly elevated blood pressures with systolic in the 200s. She has had hard to control blood pressure and is likely from the untreated sleep apnea. She also has significant headaches and migraines the the untreated sleep apnea is likely contributing to. Therefore, will request a CPAP of 9 cm soon as possible. She also is on oxygen so therefore will add her oxygen supplementation CPAP. Hopefully will help her blood pressure. She continues use respiratory medicine. She still has a cough. The cough is persistent. Moderate severity. Since requesting cough medication. She continues with respiratory medication. For some reason the Daliresp has not been provided in the last 2 weeks she is already noticed worsening respiratory symptoms. Will go ahead and request Daliresp at the pharmacy again. She has been on it for many years and therefore is therapy that she needs to continue. 04/12/2024 the patient is here for a pulmonary follow-up visit. Overall the patient has been doing fair. She was done in [place] for about a month. There she got sick with a respiratory illness. She did have some antibiotics and she did taken. She also had a little bit of prednisone which she took that as well. Although she is still not better. She feels have significant hoarseness and cough. Productive cough at times. Moderate severity. She has been using all her respiratory medications. Currently she is doing a little better from how she was before. In addition to that the patient is still struggling with her sleep. She has an elevated Keeler score of 10/24. We did request a CPAP for her during the last visit but she has yet to receive it. We did call the [facility] we did rectify that they received all the paperwork to make sure that she gets her equipment. Once she situated she is going to start using the CPAP with the oxygen. Will follow-up in about 3 months and she can bring her CPAP with her so we can assess her response to therapy. Her last chest x-ray was back in 11/02/2023 she did have some areas of opacities and atelectasis. Will plan to repeat her x-ray when she returns in 3 months. If she continues to be symptomatic she can always call so we can get the x-ray on sooner. If the x-ray continues to be abnormal will consider getting a CT scan of the chest. 07/10/2024 the patient is here for a pulmonary follow-up visit. She has been sick now for about a week. Started developing sore throat chest congestion and cough. She went to her primary care doctor there she had COVID and RSV testing. She is waiting for the RSV with the COVID was negative. She also had a strep throat which was negative. The patient also had a chest x-ray which per report was told that it was okay. She was placed on Augmentin and a short course of prednisone. She is partially better. She has significant hoarseness. She has been using her respiratory therapy. She continues have significant daytime drowsiness with an elevated Keeler score of 11/24. She finally set up for CPAP. She is going to be picking it up soon. I did recommend that she wait until she is better to start using the PAP therapy. She will continue with the prednisone taper and also will go ahead and treat her with Augmentin and doxycycline to complete a 10 day course. [facility] Medical History (Updated 10/17/23 @ 22:34 by Christopher Clark MD) Lower extremity edema Asthma Steroid dependent Hematuria Chronic respiratory failure COPD exacerbation Sinusitis VIKAS (obstructive sleep apnea) Asthma-COPD overlap syndrome Surgical History (Updated 05/10/20 @ 13:06 by Tova Mallory LPN) Carpal tunnel syndrome Family History (Updated 06/04/20 @ 22:35 by Christopher Clark MD) Sister Asthma Social History Patient Tobacco Use Status: Never used Tobacco Review of Systems Const Reports daytime sleepiness, Reports difficulty sleeping, Reports fatigue, Reports headache(s), Reports malaise, Denies night sweats and Reports stops breathing during sleep Eyes Reports no additional complaints, Denies eye discharge, Denies irritation and Denies photophobia ENT Denies change in voice, Reports headache(s), Denies lip swelling, Denies mouth pain, Reports nasal congestion, Reports nasal discharge, Reports sinus pain, Reports sinus pressure and Denies tongue swelling Card Reports leg edema and Reports dyspnea on exertion Resp Reports cough, Reports pain with cough, Reports dyspnea on exertion and Denies wheezing GI Reports abdominal pain, Reports dyspepsia and Reports heartburn Denies dysuria Musc Reports as per HPI, Reports arthralgias and Reports limited range of motion Skin/Breast Reports change in pigmentation Neuro Denies Neuro-related abnormal movements and Reports headache(s) Psych Denies no additional complaints Endo Reports fatigue Arsh/Lymph Denies easy bleeding and Denies lymphadenopathy Aller/Immun Denies lip swelling, Denies tongue swelling and Denies wheezing Physical Exam Vital Signs: Last Vital Signs Pulse 68 07/10/24 14:19 BP 122/78 07/10/24 14:19 Pulse Ox 96 07/10/24 14:19 Oxygen Delivery Method Nasal Cannula 07/10/24 14:19 Oxygen Flow Rate 3 07/10/24 14:19 BMI result Body Mass Index 37.0 Const General: alert Eyes Direct Ophthalmoscopy: No photophobia Neck Neck: Yes normal visual inspection, Yes full ROM and Yes no lymphadenopathy Chest Chest palpation & inspection: normal inspection of the chest Resp Effort & Inspection: normal respiratory effort, able to speak in complete sentences and no audible wheezes Auscultation: no crackles, no rales, no rhonchi, no wheezes and diminished lung sounds Cardio Rate: regular rate Rhythm: regular rhythm Heart sounds: S1 normal heart sound present and S2 normal heart sound present GI Palpation (GI): Soft to palpation and nontender Auscultation: normal bowel sounds Skin General skin exam: no rashes or lesions noted and other (vitiligo) Extrem General: No clubbing, No cyanosis and Yes edema Assessment & Plan Assessment & Plan (1) Chronic respiratory failure: Code(s): J96.10 - Chronic respiratory failure, unspecified whether with hypoxia or hypercapnia Category: Medical Qualifiers: Respiratory failure complication: hypoxia Qualified Code(s): J96.11 - Chronic respiratory failure with hypoxia (2) VIKAS (obstructive sleep apnea): Code(s): G47.33 - Obstructive sleep apnea (adult) (pediatric) Category: Medical (3) Asthma-COPD overlap syndrome: Code(s): J44.9 - Chronic obstructive pulmonary disease, unspecified Category: Medical (4) Sinusitis: Code(s): J32.9 - Chronic sinusitis, unspecified Category: Medical Qualifiers: Chronicity: acute Recurrence: recurrent Sinusitis location: unspecified location Qualified Code(s): J01.91 - Acute recurrent sinusitis, unspecified Plan start APAP 9cm with oxygen augmentin doxy prednisone taper Xolair and allergy shots [id number], pretreat with Benadryl and tylenol stop Stiolto/QVAR start Breztri with spacer Continue Daliresp continue DuoNeb continue oxygen supplementation. POC for portability reflux diet PPI F/U 2-3 months Medications: New amoxicillin-pot clavulanate 875-125 mg 1 tab PO BID 20 tabs 0RF 10 days codeine-guaifenesin 10-100 mg/5 mL 10 mL PO Q6H PRN 300 mL 0RF cough 10 days kogsitsopb-ogimiuto-cffxkxdtad 160-9-4.8 mcg/actuation (Breztri Aerosphere) 2 inhalations inhalation BID 10.7 grams 8RF 30 days doxycycline hyclate 100 mg PO BID 20 caps 0RF 10 days prednisone PO daily; Take 4 tabs x 4 days, then 3 tabs x 4 days, then 2 tabs daily x 4 days, then 1 tab x 4 days to complete. 40 tabs 0RF 18 days Coding Level of Care Code Est Pt Level 4 (68084) Complex EM visit Add On G2211 Diagnoses Chronic respiratory failure with hypoxia J96.11 Respiratory failure complication: hypoxia VIKAS (obstructive sleep apnea) G47.33 Asthma-COPD overlap syndrome J44.9 Acute recurrent sinusitis, unspecified location J01.91 Chronicity: acute Recurrence: recurrent Sinusitis location: unspecified location Time Spent (min) 18
== END 2024-07-10 14:56 | disposition home or self-care (01) ==
PROVIDERS: PCP Pediatrics; Visit Provider Hospitalist
DX: J96.11 Chronic respiratory failure with hypoxia (principal); G47.33 Obstructive sleep apnea (adult) (pediatric); J44.9 Chronic obstructive pulmonary disease, unspecified; J01.91 Acute recurrent sinusitis, unspecified
CPT/HCPCS: 99214; G2211

== ENCOUNTER → 2024-07-10 14:10 | Outpatient (BNVA) | payer OTHER, SELFPAY | PROVIDERS: PCP Pediatrics; Visit Provider Hospitalist | DX: J96.11 Chronic respiratory failure with hypoxia (principal); J44.9 Chronic obstructive pulmonary disease, unspecified; J01.91 Acute recurrent sinusitis, unspecified; G47.33 Obstructive sleep apnea (adult) (pediatric); Z99.81 Dependence on supplemental oxygen; Z99.89 Dependence on other enabling machines and devices | CPT/HCPCS: 99212 ==

== ENCOUNTER → 2024-09-07 14:09 | Outpatient (BNVA) | payer OTHER, SELFPAY | PROVIDERS: PCP Pediatrics; Visit Provider Hospitalist | DX: J96.11 Chronic respiratory failure with hypoxia (principal); G47.33 Obstructive sleep apnea (adult) (pediatric); J45.50 Severe persistent asthma, uncomplicated; J44.9 Chronic obstructive pulmonary disease, unspecified; J01.91 Acute recurrent sinusitis, unspecified; F19.20 Other psychoactive substance dependence, uncomplicated | CPT/HCPCS: 99212 ==

== ENCOUNTER → 2024-09-13 14:49 | Outpatient (REF) | payer OTHER, SELFPAY ==
--- NOTE | 2024-09-13 14:52 | CA_ITS ---
Transthoracic Echocardiogram Amended Patient (Last, First, Middle): Madhav Sanders Faviola Hassan Gender: Female Date of : 1965 Age: 59 Procedure Date: 09/13/2024 Procedure Type: Transthoracic Echocardiogram Location: OP Height: 167.64 cm Weight: 100.7 kg BSA: 2.09 m2 Heart Rate: 73 bpm BP: 150 / 88 mmHg Test Administrator: SB Referring MD: Christopher Clark MD Symptoms: I27.20 - Pulmonary hypertension, unspecified Study Quality: Adequate ECG Rhythm: Sinus Conclusions: - The left ventricular systolic function is normal. The calculated ejection fraction is 65% by biplane method. - No obvious valvular pathology seen on this study. - There is no evidence of pulmonary hypertension. Findings Left Ventricle Normal left ventricular cavity size. There is normal left ventricular wall thickness. The left ventricular systolic function is normal. The calculated ejection fraction is 65% by biplane method. There is no evidence of regional wall motion abnormalities. Diastolic function is normal for age. Right Ventricle Normal right ventricular cavity size and systolic function. Atria Both atria are normal in size. Aortic Valve There is a normal trileaflet aortic valve. There is no aortic valve stenosis. There is no aortic valve regurgitation. Mitral Valve The mitral valve appears normal. There is no mitral valve regurgitation. There is no mitral valve stenosis. Pulmonic Valve The pulmonic valve is likely normal. Tricuspid Valve There is trace tricuspid valve regurgitation. There is no evidence of pulmonary hypertension. Great Vessels The asc aorta is normal in size. Small plaque is seen in the sinuses of Valsalva. Venous The inferior vena cava is normal in size and collapses greater than 50% with inspiration. Pericardium/Pleural There is no evidence of pericardial effusion. Prior Study Comparison No prior study available for comparison. Recommendations, Care & Conclusions No obvious valvular pathology seen on this study. Measurements 2D Linear Measurements IVSd: 1.00 0.6-0.9/0.6-1.0 cm LVIDd: 5.09 3.9-5.3/4.2-5.9 cm LVIDd Index: 2.44 2.4-3.2/2.2-3.1 cm/m2 LVIDs: 2.97 2.0-3.6 cm LVPWd: 1.00 0.7-1.1 cm LA Diam: 4.10 2.7-3.8/3.0-4.0 cm LAIDs Index: 1.96 1.5-2.3 cm/m2 LV Mass: 231.94 67-162/88-224 g LV Mass Index: 110.98 43-95/49-115 g/m2 LVOT Diam: 2.00 3.0+(-)1.3 cm 2D Volumes LA Vol: 22.10 2D Systolic Function EF 4C: 65.80 >55% EF 2C: 62.80 >55% EF BiP: 64.80 >55% Mitral Valve MV Pk E: 0.71 MV PK A: 0.76 MV Decel Time: 263.00 E/A: 0.90 E'Lateral: 5.66 E'Medial: 4.90 E/E' Med: 14.50 E/E' Lat: 12.50 PHT: 77.00 MVA PHT: 2.86 Decel Kaufman: 2.70 Aortic Valve AoV Pk Andres: 1.53 AoV Pk Grad: 9.00 LEATHA: 3.06 LVOT LVOT Pk Andres: 1.40 LVOT Mn Andres: 0.91 LVOT VTI: 0.29 LVOT Pk Grad: 8.00 LVOT Mn Grad: 4.00 LVOT Diam: 2.00 LVOT Area: 3.14 Diastolic Function MV Pk E: 0.71 MV Pk A: 0.76 E/A: 0.90 E'Medial: 4.90 E/E' Med: 14.50 E' Laterial: 5.66 E/E' Lat: 12.50 Right Ventricle TAPSE (mm): 19.80 TVS' Andres: 13.90 Tricuspid Valve TR Pk Andres: 2.44 TR Pk Grad: 24.00 RA Press: 3.00 RVSP: 27.00 Great Vessels Aorta Sinus of Valsalva: 3.00 2.0-3.5 cm Ao Asc: 3.30 2.1-3.4 cm Pulmonary Valve PV Pk Andres: 1.05 Peak PV Grad: 4.00 Updated in Other Vendor System with Status of Final Leo Trimble MD electronically signed on 09/15/2024 10:56:28 AM with status of Final
--- OUTSIDE RECORDS SUMMARY | 2024-09-13 18:41 | XMS_ITS | Clinical Summary ---
Author Organization [facility] Loc[facility] it Address [address] [place] [address] Care Team Providers Care Web Sizer Name Role Phone Pina Lopez MD Primary Care Provider [phone] Surgical History Surgery Date Site/Laterality Comments CARPAL TUNNEL RELEASE 2008 PROCEDURE: HISTORICAL CARPAL TUNNEL REL CHOLECYSTECTOMY PROCEDURE: HISTORICAL CHOLECYSTECTOMY SECTION PROCEDURE: HISTORICAL DELIVERY OTHER SURGICAL HISTORY PROCEDURE: HISTORY OTHER; COMMENT: breast surgery COLONOSCOPY PROCEDURE: HISTORICAL COLONOSCOPY ESOPHAGOGASTRODUODENOSCOPY PROCEDURE: NE ESOPHAGOGASTRODUODENOSCOPY TRANSORAL DIAGNOSTIC Medical History Medical History Date Comments Depression DX:Depression; C OMMENT: seen by psych, Dr. Martino Anxiety DX:Anxiety Vitamin D deficiency DX:Vitamin D deficiency Vitamin B12 deficiency DX:Vitami n B12 deficiency Migraine DX:Migraine; COM MENT: botox inj at [facility] on 03/20/2013 VIKAS on CPAP DX:VIKAS on CPAP HTN (hypertension) DX:HTN (hyper tension) Vitiligo 06/10/2017 DX:Vitiligo Morbid obesity with BMI of 4 5.0-49.9, adult ([facility]) 05/02/2017 DX:Morbid obesity with BMI o f 45.0-49.9, adult ([facility]) Allergic rhinitis 05/17/2017 DX:Allergic rh initis CTS (carpal tunnel syndrome) 12/05/2012 DX: CTS (carpal tunnel syndrome); COMMENT: Dr hannah Osteoarthritis 12/05/2012 DX:Osteoarthriti s; COMMENT: knees, spine Asthma-COPD overlap syndrome (CMS/HCC) 08/31/2017 DX:Asthma-COPD overlap syndrome ([facility]) Hypoxia 08/31/2017 DX:Hypoxia Chronic constipation 08/31/2017 DX:Chronic constipation Family History Medical History Relation Name Comments Hypertension Maternal Grandfather Diabetes Mother Hypertension Diabetes Sister Relation Name Status Comments Maternal Grandfather Mother Sister Social History Tobacco Use Types Packs/Day Years Used Date Smoking Tobacco: Never Smokeless Tobacco: Never Alcohol Use Standard Drinks/Week Comments No 0 (1 standard drink = 0.6 oz pur e alcohol) Sex and Gender Information Value Date Recorded Sex Assigned at Not on file Gender Identity Not on file Sexual Orientation Not on file Obstetrics History Plan of Treatment Health Maintenance Due Date Last Done Comments Breast Cancer Screening 1965 Pneumococcal Vaccine: Pediatrics (0 to 5 Years) and At-Risk Patients (6 to 64 Years) (1 of 2 - PCV) 1971 Hepatitis B Vaccines (1 of 3 - 19+ 3-dose series) 1984 Cervical Cancer Screening: Pap Smear 1986 Zoster Vaccines (1 of 2) 2015 Cholesterol Screening (Lipid Panel) 07/18/2022 Colorectal Cancer Screening: Colonoscopy 07/18/2022 Depression Screening 07/18/2022 HIV Screening 07/18/2022 Hepatitis C Screening 07/18/2022 Social Influencers of Health Screening 07/18/2022 Hypertension/CHF/CAD Annual BMP Blood Test 07/28/2022 DTaP,Tdap,and Td Vaccines (2 - Td or Tdap) 01/02/2023 01/02/2013 COVID-19 Vaccine ( - season) 2024 Influenza Vaccine (#1) 2024 9, 06/14/2017, 05/30/2017, Additional history exists RSV Immunization Patients 60+ Years Old (1 - 1-dose 75+ series) 2040 HIB Vaccines Aged Out No longer eligi ble based on patient's age to complete this topic HPV Vaccines Aged Out No longer eligi ble based on patient's age to complete this topic Hepatitis A Vaccines Aged Out No long er eligible based on patient's age to complete this topic IPV Vaccines Aged Out No longer eligi ble based on patient's age to complete this topic MMR Vaccines Aged Out No longer eligi ble based on patient's age to complete this topic Meningococcal ACWY Vaccine Aged Out N o longer eligible based on patient's age to complete this topic RSV Immunization Patients Under 20 months Aged Out No longer eligible based on patient's age to complete this topic Varicella Vaccines Aged Out No longer eligible based on patient's age to complete this topic Care Teams Web Sizer Relationship Specialty Start Date End Date Pina Lopez MD 11 Sherri FernandezfieldSHAN PCP - General Internal Medicine 06/21/17
--- OUTSIDE RECORDS SUMMARY | 2024-09-13 18:41 | XMS_ITS | Encounter Summary ---
Author Organization [facility] Address [address] [facility] [address] [place] [address] Phone Care Team Providers Care Trade Show Specialist Name Role Phone Pina Lopez MD Primary Care Provider [phone] Reason for Visit * Reason Onset Date Comments Med Refill 08/28/2024 Encounter Details Date Type Department Care Team ([facility] Contact Info) Description 08/28/2024 Refill [facility] [address] [phone] Domingo [place] [address] [facility] [address] [place] [address] Social History Tobacco Use Types Packs/Day Years Used Date Smoking Tobacco: Never Alcohol Use Standard Drinks/Week Comments No 0 (1 standard drink = 0.6 oz pur e alcohol) Comments Unknown Sex and Gender Information Value Date Recorded Sex Assigned at Not on file Legal Sex Female 4:55 PM EST Gender Identity Not on file Sexual Orientation Not on file documented as of this encounter Plan of Treatment Upcoming Encounters Date Type Department Care Team (Late Contact Info) Description 07/03/2025 1:15 PM EST Office Visit [facility] [address] [phone] Carter Samayoa MD [address] [phone] documented as of this encounter Visit Diagnoses Not on filedocumented in this encounter Care Teams Trade Show Specialist Relationship Specialty Start Date End Date Pina Lopez MD [address] [place] [address] PCP - General Internal Medicine 12/28/23 documented as of this encounter
--- OUTSIDE RECORDS SUMMARY | 2024-09-13 18:41 | XMS_ITS | Clinical Summary ---
Author Organization [facility] Address [address] [address] Phone Care Team Providers Care Adaptive Physical Education Specialist Name Role Phone Pina Lopez MD Primary Care Provider [phone] Allergies Active Allergy Reactions Criticality Noted Date Comments Eplerenone 06/03/2021 Other 12/22/2022 Medications zolpidem (AMBIEN) 10 MG tablet Take 1 tablet by mouth at bed time Active zileuton (ZYFLO) 600 MG tablet Take 1 tablet by mouth 2 (two) times a day Active verapamil SR (CALAN-SR) 240 MG CR tablet Take 1 tablet by mouth 1 (one) time each day Active tiZANidine (ZANAFLEX) 4 MG capsule Take 1 capsule by mouth 2 (two) times a day Active Tiotropium Odebolt Monohydrate (Spiriva Respimat) 2.5 MCG/ACT aerosol solution 5 mcg by Other route 1 (one) time each day Active Roflumilast (Daliresp) 500 MCG tablet Take 1 tablet by mouth 1 (one) time each day Active QUEtiapine (SEROquel) 200 MG tablet Take 1 tablet by mouth at bed time Active predniSONE (DELTASONE) 10 MG tablet Take 1 tablet by mouth 1 (one) time each day Active oxyCODONE-acetam inophen (PERCOCET) 2.5-325 MG per tablet Take 1 tablet by mouth every 4 (four) hours Active omeprazole (PriLOSEC) [address] capsule Take 1 capsule by mouth in the morning and 1 capsule at noon and 1 capsule in the evening. Active nitroglycerin (NITROSTAT) 0.[address] 1 tablet under the tongue Active ipratropium HFA (Atrovent HFA) 17 MCG/ACT inhaler 2 puffs by Other route 4 (four) times a day Active ipratropium-albu terol (DUO-NEB) 0.5-2.5 mg/3 mL nebulizer solution 1 vial by Other route 3 (three) times a day 8 Active isosorbide mononitrate (IMDUR) 30 MG 24 hr tablet Take 60 mg by mouth every morning 1 Active metoprolol tartrate 25 MG tablet Take 25 mg by mouth 2 (two) times a day 1 Active fluticasone (FLONASE) 50 MCG/ACT nasal spray Administer 2 sprays into each nostril 1 (one) time each day Active gabapentin (NEURONTIN) 300 MG capsule Take 600 mg by mouth 1 (one) time each day 600 in the morning 600 evening 600 mg night Active cyanocobalamin (VITAMIN B-12) 1000 MCG tablet Take 1 tablet by mouth 1 (one) time each day Active benzonatate (TESSALON) 200 MG capsule Take 1 capsule by mouth 3 (three) times a day Active busPIRone (BUSPAR) 30 MG tablet Take 1 tablet by mouth 1 (one) time each day Active amoxicillin-clav ulanate (AUGMENTIN) 875-125 MG per tablet Take 1 tablet by mouth 2 (two) times a day Active aspirin (ST DARÍO) 81 MG EC tablet Take 1 tablet by mouth 1 (one) time each day Active CITALOPRAM HYDROBROMIDE PO Take 40 mg by mouth 9 Active CLONAZEPAM PO Take 1 mg by mouth 6 Active ondansetron (ZOFRAN) 4 MG tablet TAKE 1 TABLET(4 MG) BY MOUTH EVERY 12 HOURS NEEDED FOR NAUSEA OR VOMITING 30 tablet 1 2 Active torsemide (DEMADEX) 20 MG tablet Take 2 tablets (40 mg total) by mouth 1 (one) time each day 180 tablet 2 3 Active traZODone (DESYREL) 50 MG tablet Take 50 mg by mouth every night 4 Active spironolactone (Aldactone) 25 MG tablet Take 2 tablets (50 mg total) by mouth 1 (one) time each day 180 tablet 5 025 Active spironolactone (Aldactone) 25 MG tablet Take 2 tablets (50 mg total) by mouth 1 (one) time each day 180 tablet 4 025 Discontin ued(Reord er (does not appear on AVS)) Active Problems Problem Noted Date Diagnosed Date Osteoarthritis of right knee joint 12/22/2022 Chronic kidney disease stage 2 12/22/2022 Morbid obesity 06/16/2022 History of gastroesophageal reflux disease 06/16 History of cholecystectomy 06/16/2022 Duct papilloma of breast 06/16/2022 Coronary arteriosclerosis 06/16/2022 Chronic pain 06/16/2022 Aneurysm of splenic artery 06/16/2022 Anemia 06/16/2022 Allergic disposition 06/16/2022 Anxiety 06/03/2021 Edema 06/03/2021 Obstructive sleep apnea syndrome 06/03/2021 Overview (06/03/2021): [facility] Home Polysomnogram: Date 11/10/2017; AHI 9, Unclassified apneas 1; Obstructive apneas 29; Central apneas 10; Mixed apneas 0; hypopneas 63; average oxygen saturation 93% (lowest 88% without saturations <88% for 5% or more of study) [facility] Home Sleep Apnea Test: Date 01/26/2019; Wt 260#; BMI 42; GABO 12, AI 4; HI 8; Unclassified apneas 4; Obstructive apneas 16; Central apneas 25; Mixed apneas 1; hypopneas 84; average oxygen saturation 94% (lowest 79% without saturations <88% for 5% or more of study) - Obstructive Sleep Apnea - mild; mostly hypopneas with obstructive apneas; without sleep related hypoventilation by 2019 home polysomnogram. Vitamin B12 deficiency 06/03/2021 Vitamin D deficiency 06/03/2021 Pulmonary hypertension 06/26/2018 Asthma-chronic obstructive p ulmonary disease overlap syndrome 08/31/2017 Chronic constipation 08/31/2017 Hypoxia 08/31/2017 Vitiligo 06/10/2017 Allergic rhinitis 05/17/2017 Body mass index 40+ - severely obese 05/02/2017 Carpal tunnel syndrome 12/05/2012 Overview (06/03/2021): Dr hannah Depressive disorder 12/05/2012 Hypertensive disorder 12/05/2012 Osteoarthritis 12/05/2012 Overview (06/03/2021): Knees, spine Migraine 12/05/2012 Overview (06/03/2021): Dr calderon neuro Encounters Date Type Department Care Team Description 08/28/2024 Refill [facility] [address] [phone] FabiánJazmine 07/17/2024 Orders Only [facility] [address] [phone] Carter Samayoa MD Pulmonary hypertension, not otherwise specified (HCC); Edema, not otherwise specified 07/03/2024 2:30 PM EST Office Visit [facility] [address] [phone] Carter Samayoa MD Pulmonary hypertension, not otherwise specified (HCC) (Primary Dx); Edema, not otherwise specified from Last 3 Months Immunizations Name Administration Dates Next Due Influenza, MDCK, PF, Quadrivalent 08/24/2018 Influenza, MDCK, Quadrivalen t, with preservative 06/14/2017 Influenza, Unspecified 08/03/2021,2019,08/24/2018,05/30,05/02/2014,04/23/2013,05/20/2010 Moderna SARS-COV-2 02/06/2021,01/02/2021 Pneumococcal Polysaccharide 03/01/2017, 8 Td, Unspecified 04/23/2008 Tdap 03/01/2017,01/02/2013 Family History Medical History Relation Comments Heart disease Mother Hypertension Mother Hypertension Sibling 1 Sister older Heart disease Sibling 2 older sister Relation Status Comments Father Mother Sibling 1 Sibling 2 Social History Tobacco Use Types Packs/Day Years Used Date Smoking Tobacco: Never Alcohol Use Standard Drinks/Week Comments No 0 (1 standard drink = 0.6 oz pur e alcohol) Comments Unknown Sex and Gender Information Value Date Recorded Sex Assigned at Not on file Legal Sex Female 4:55 PM EST Gender Identity Not on file Sexual Orientation Not on file Last Filed Vital Signs Vital Sign Reading Time Taken Comments Blood Pressure 144/82 12/28/2023 3:53 PM EDT Pulse 80 07/03/2024 2:32 PM EST Temperature - - Respiratory Rate - - Oxygen Saturation 92% 07/03/2024 2:32 PM EST Inhaled Oxygen Concentration - - Weight 103 kg (228 lb) 07/03/2024 2:32 PM EST Height 165.1 cm (5' 5 ) 06/20/2020 12:00 PM EST Body Mass Index 37.94 06/20/2020 12:00 PM EST Plan of Treatment Upcoming Encounters Date Type Department Care Team (Late st Contact Info) Description 07/03/2025 1:15 PM EST Office Visit [facility] [address] [phone] Carter Samayoa MD [address] [phone] Health Maintenance Due Date Last Done Comments Breast Cancer Screening 1965 Hepatitis B Vaccine (1 of 3 - 19+ 3-dose series) 1984 Colorectal Cancer Screening: Annual FOBT 2014 Colorectal Cancer Screening: Colonoscopy 2014 Colorectal Cancer Screening: Sigmoidoscopy 2014 Pneumococcal Vaccine: Pediat rics (0 to 5 Years) and At-Risk Patients (6 to 64 Years) (3 of 3 - PCV) 03/01/2018 03/01/2017, 04/23/2008 Influenza Vaccine (#1) 2024 , 09/07/2019, 08/24/2018, Additional history exists Insurance [facility] [place] [address] [address] MEDICAID Care Teams Adaptive Physical Education Specialist Relationship Specialty Start Date End Date Pina Lopez MD [address] [place] [address] PCP - General Internal Medicine 12/28/23
== END ==
LOC: HO.CARD 14:49
PROVIDERS: PCP Nurse Practitioner Family; Visit Provider Hospitalist
DX: I27.20 Pulmonary hypertension, unspecified (principal); J45.50 Severe persistent asthma, uncomplicated
CPT/HCPCS: 93306

== ENCOUNTER 2024-11-06 15:13 | Outpatient (AMB) | payer OTHER, SELFPAY ==
--- NOTE | 2024-11-06 15:54 | A.OFFVIS_ITS ---
Vital Signs 11/06/24 15:55 Height 5 ft 6 in Weight 213 lb 13.574 oz BMI 34.5 BP 132/78 Blood Pressure Location Rt brachial Position Sitting Pulse 74 Pulse Source Pulse Oximeter Pulse Oximetry (%) 93 Oxygen Delivery Method Room Air Intake Visit Reasons: COPD Allergies topiramate [From Topamax] Allergy (Mild, Verified 11/06/24 16:01) Tingling in mouth and lips HPI Comments Details: The patientis a 59 y/o woman with underlying chronic respiratory failure on oxygen in addition to COPD, VIKAS on CPAP. She is oxygen dependent. She does have dyspnea on exertion. Moderate in amount. The oxygen has been helpful. However, it is hard for her to carry the oxygen tanks. She is concerned about the finding on the CT scan of the chest demonstrating 1.7 cm splenic artery aneurysm. Therefore, I will refer her to vascular surgeon. Overall, the patient is doing well from a respiratory standpoint. She understand that she does have a moderate risk for perioperative pulmonary complications. I did review her sleep study from January 2018 demonstrating moderate sleep apnea with significant hypoxia. I will send a new prescription for CPAP to the [facility]. When she Star CPAP for we can do an overnight oximetry to see if she does need oxygen with her CPAP. She continues using her oxygen. She is still having issues with a battery o perated portable oxygen concentrator. She has a hard time caring her oxygen tanks because of her significant arthritis and other comorbidities. The portable oxygen concentrator will provide better portability outside of her home. 07/18/2023 the patient is here for a pulmonary follow-up visit. Overall she is been doing well on Xolair and also the allergy shots. Although, she is been having significant headaches. She attributes this to the Xolair. She had been pretreating with Tylenol and Benadryl in in the past that did help with the headaches. Therefore, will provide with the Tylenol she already has a Benadryl so she can continue to do that pre medication treatment to minimize the adverse effects. Her respiratory therapy has been able to stabilize her respiratory symptoms significantly. She is still using her oxygen as prescribed with good effect. she has been started to have symptoms of sinusitis. She is concerns that is developing to full flush sinusitis. Will make sure to provide him medications to have case her symptoms worsen. In the meantime the patient has been having daytime drowsiness. she does use oxygen and also has a history of sleep apnea in the past. Her Owyhee score is elevated 10/24. At this point will request that the patient undergo a sleep study. Since she is on oxygen she will require an in-lab study. 10/17/2023 the patient is here for pulmonary follow-up visit. She has been very sickly the last 2 weeks. The patient has had positive sick contacts in the home as her grandchild was sick and the rest of the family became very sick. Ultimately her symptoms worsened significantly activating her asthma. She was having significant chest tightness and wheezing. Her COVID testing was negative. The child that initially was sick was also tested for RSV and flu and COVID and all negative. The patient did call the office and we did start her on doxycycline and also a course of prednisone. The patient has been tapering down now 30 mg of prednisone. She does feel better but still having significant nasal congestion nasal obstruction sinus pressure. Moderate severity. Hoarseness. Also complains of a cough. Also having chest tightness and wheezing still. She is using her nebulizer. She is also using her oxygen. She has not had any recent x-rays imaging studies. The patient may have a component of sinusitis this point and will treat her accordingly. In addition to that she continues to have significant daytime drowsiness. She did have a in-lab sleep study that was personally reviewed. The patient does have significant sleep apnea and was recommended that she have a CPAP titration study. We did requested but was initially denied by the insurance. We are still waiting approval at this time. The patient does have an elevated Owyhee score of 12/24. The patient has significant risk factors and a positive sleep study with evidence of respiratory failure. Therefore a titration study would be most imp ortant to be able to provide her with the Appropriate PAP therapy. Also, very importantly the patient has been having issues with headaches. She does have a blood pressure meter at home and she did bring some of the readings which were very alarming. The highest blood pressure was systolic blood pressure about 210 and diastolic pressure also elevated overall 108. the patient has a prescription for torsemide but she stopped taking it in view of the fact that she was urinating a lot while being on the prednisone. In addition to that she has a prescription for verapamil but does not always take it either. At this point the patient understands that broad pressure-like that could result in stroke and can result in serious end-organ damage. The patient has been reluctant to go to the ER specially because of all the illnesses that she has been exposed to already in the end since that will be in the ER. I did give her a prescription for small dose of hydralazine that she can use as needed while she weighs see her primary care doctor and engraver letter. 01/16/2024 the patient is here for pulmonary follow-up visit. She continues to have significant daytime drowsiness. Her Owyhee score is elevated 11/24. She did have a titration sleep study. We did review. Appearance that she did very well on CPAP of 9 cm. The patient needs to start CPAP at this time. She has significantly elevated blood pressures with systolic in the 200s. She has had hard to control blood pressure and is likely from the untreated sleep apnea. She also has significant headaches and migraines the the untreated sleep apnea is likely contributing to. Therefore, will request a CPAP of 9 cm soon as possible. She also is on oxygen so therefore will add her oxygen supplementation CPAP. Hopefully will help her blood pressure. She continues use respiratory medicine. She still has a cough. The cough is persistent. Moderate severity. Since requesting cough medication. She continues with res piratory medication. For some reason the Daliresp has not been provided in the last 2 weeks she is already noticed worsening respiratory symptoms. Will go ahead and request Daliresp at the pharmacy again. She has been on it for many years and therefore is therapy that she needs to continue. 04/12/2024 the patient is here for a pulmonary follow-up visit. Overall the patient has been doing fair. She was done in [place] for about a month. There she got sick with a respiratory illness. She did have some antibiotics and she did taken. She also had a little bit of prednisone which she took that as well. Although she is still not better. She feels have significant hoarseness and cough. Productive cough at times. Moderate severity. She has been using all her respiratory medications. Currently she is doing a little better from how she was before. In addition to that the patient is still struggling with her sleep. She has an elevated Owyhee score of 10/24. We did request a CPAP for her during the last visit but she has yet to receive it. We did call the [facility] we did rectify that they received all the paperwork to make sure that she gets her equipment. Once she situated she is going to start using the CPAP with the oxygen. Will follow-up in about 3 months and she can bring her CPAP with her so we can assess her response to therapy. Her last chest x-ray was back in 11/02/2023 she did have some areas of opacities and atelectasis. Will plan to repeat her x-ray when she returns in 3 months. If she continues to be symptomatic she can always call so we can get the x-ray on sooner. If the x-ray continues to be abnormal will consider getting a CT scan of the chest. 07/10/2024 the patient is here for a pulmonary follow-up visit. She has been sick now for about a week. Started developing sore throat chest congestion and cough. She went to her primary care doctor there she had COVID and RSV testing. She is waiting for the RSV with the COVID was negative. She also had a strep throat which was negative. The patient also had a chest x-ray which per report was told that it was okay. She was placed on Augmentin and a short course of prednisone. She is partially better. She has significant hoarseness. She has been using her respiratory therapy. She continues have significant daytime drowsiness with an elevated Owyhee score of 11/24. She finally set up for CPAP. She is going to be picking it up soon. I did recommend that she wait until she is better to start using the PAP therapy. She will continue with the prednisone taper and also will go ahead and treat her with Augmentin and doxycycline to complete a 10 day course. 09/07/2024 the patient is here for a pulmonary follow-up visit. Overall she is doing well. She did start the new CPAP therapy. The therapy has been affecting beneficial. She does use hormone 4 hours. She does better with a fullface mask. I am requesting axis to airway to be able to download the machine adjus elis accordingly. The patient also continues with respiratory therapy with good effect. Her only complaint is left-sided back and side discomfort. She did have a CT scan of the abdomen done because of that. They were looking for kidney stones so there kidneys were okay. She does have a splenic aneurysm that is calcified and she has had that documented for many years. This has been stable. When she does have significant disease of her vertebral bodies. She has also had MRIs demonstrating significant disc bulging around the L3-L4 and likely has some radiculopathy to that area that is causing the left-sided discomfort. She is working with pain management. She has been also on chronic steroids and has received significant amount of cortical steroids via injections. Therefore will go ahead and request a bone density test. Patient also has been having increasing shortness of breath. Will have her get an echo and a PFT and then will follow-up in 3-4 months. If the patient has any worsening issues she can always call for an earlier assessment. 11/06/2024 the patient is here for pulmonary follow-up visit. Overall the patient has been doing okay. Recently she started developing worsening cough and some laryngitis. She is concerned she is getting sick again. But otherwise she has been doing okay. She does have her bone density test scheduled. She still has some difficulty breathing. Dyspnea on exertion. [id number] severity. The oxygen does help. She did have a chest x-ray that was planned was nondiagnostic. Her PFTs are pending. Based on her ongoing dyspnea symptoms and cough will go ahead and request a CT scan of the chest to better address the area. The patient continues uses CPAP. CPAP therapy has been affecting beneficial. She does use it for more than 4 hours a night. Although there mask is uncomfortable. She is wondering if she can switch over to the F 40 mask. I believe that this will be a better fit for her as well. Will request that her [employer] company, [employer] was switch her mask to a enough 40. She does have an unopened box of supplies. Will see if [employer] can exchange to the F 40 mask at this time. [facility] Medical History (Updated 10/17/23 @ 22:34 by Christopher Clark MD) Lower extremity edema Asthma Steroid dependent Hematuria Chronic respiratory failure COPD exacerbation Sinusitis VIKAS (obstructive sleep apnea) Asthma-COPD overlap syndrome Surgical History (Updated 05/10/20 @ 13:06 by Tova Mallory LPN) Carpal tunnel syndrome Family History (Updated 06/04/20 @ 22:35 by Christopher Clark MD) Sister Asthma Social History Patient Tobacco Use Status: Never used Tobacco Review of Systems Const Reports daytime sleepiness, Reports difficulty sleeping, Reports fatigue, Reports headache(s), Reports malaise, Denies night sweats and Reports stops breathing during sleep Eyes Reports no additional complaints, Denies eye discharge, Denies irritation and Denies photophobia ENT Denies change in voice, Reports headache(s), Denies lip swelling, Denies mouth pain, Reports nasal congestion, Reports nasal discharge, Reports sinus pain, Reports sinus pressure and Denies tongue swelling Card Reports leg edema and Reports dyspnea on exertion Resp Reports cough, Reports pain with cough, Reports dyspnea on exertion and Denies wheezing GI Reports abdominal pain, Reports dyspepsia and Reports heartburn Denies dysuria Musc Reports as per HPI, Reports back pain, Reports arthralgias and Reports limited range of motion Skin/Breast Reports change in pigmentation Neuro Denies Neuro-related abnormal movements and Reports headache(s) Psych Denies no additional complaints Endo Reports fatigue Arsh/Lymph Denies easy bleeding and Denies lymphadenopathy Aller/Immun Denies lip swelling, Denies tongue swelling and Denies wheezing Physical Exam Vital Signs: Last Vital Signs Pulse 74 11/06/24 15:55 BP 132/78 11/06/24 15:55 Pulse Ox 93 11/06/24 15:55 Oxygen Delivery Method Room Air 11/06/24 15:55 BMI result Body Mass Index 34.5 Const General: alert Eyes Direct Ophthalmoscopy: No photophobia Neck Neck: Yes normal visual inspection, Yes full ROM and Yes no lymphadenopathy Chest Chest palpation & inspection: normal inspection of the chest Resp Effort & Inspection: normal respiratory effort, able to speak in complete sentences and no audible wheezes Auscultation: no crackles, no rales, no rhonchi, no wheezes and diminished lung sounds Cardio Rate: regular rate Rhythm: regular rhythm Heart sounds: S1 normal heart sound present and S2 normal heart sound present GI Palpation (GI): Soft to palpation and nontender Auscultation: normal bowel sounds Skin General skin exam: no rashes or lesions noted and other (vitiligo) Extrem General: No clubbing, No cyanosis and Yes edema Assessment & Plan Assessment & Plan (1) Chronic respiratory failure: Code(s): J96.10 - Chronic respiratory failure, unspecified whether with hypoxia or hypercapnia Category: Medical Qualifiers: Respiratory failure complication: hypoxia Qualified Code(s): J96.11 - Chronic respiratory failure with hypoxia (2) VIKAS (obstructive sleep apnea): Code(s): G47.33 - Obstructive sleep apnea (adult) (pediatric) Category: Medical (3) Asthma-COPD overlap syndrome: Code(s): J44.9 - Chronic obstructive pulmonary disease, unspecified Category: Medical (4) Sinusitis: Code(s): J32.9 - Chronic sinusitis, unspecified Category: Medical Qualifiers: Chronicity: acute Recurrence: recurrent Sinusitis location: unspecified location Qualified Code(s): J01.91 - Acute recurrent sinusitis, unspecified (5) Steroid dependent: Code(s): F19.20 - Other psychoactive substance dependence, uncomplicated Category: Medical (6) Asthma: Code(s): J45.909 - Unspecified asthma, uncomplicated Category: Medical Qualifiers: Asthma complication type: uncomplicated Asthma persistence: persistent Asthma severity: severe Qualified Code(s): J45.50 - Severe persistent asthma, uncomplicated (7) Chest pain: Code(s): R07.9 - Chest pain, unspecified Category: Medical Qualifiers: Chest pain type: pleurodynia Qualified Code(s): R07.81 - Pleurodynia Plan conitnue APAP 9cm with oxygen bone density while on chronic steroids-pending Xolair and allergy shots [id number], pretreat with Benadryl and tylenol continue Breztri with spacer Continue Daliresp continue DuoNeb continue oxygen supplementation. POC for portability reflux diet PPI PFts-pending ECHO-good requesting CT chest to address persistent dyspnea and hypoxia. CXR non diagnostic F/U 3-4 months Orders: Orders CT chest wo IV con 6 Weeks R07.81 - Pleurodynia Medications: Refilled prednisone PO daily; Take 6 tabs daily x 3 days, then 5 tabs x 3 days, then 4 tabs x 3 days, then 3 tabs x 3 days, then 2 tabs daily x 3 days, then 1 tab x 3 days to complete. 18 days 63 tabs 0RF amoxicillin-pot clavulanate 875-125 mg 1 tab PO BID 10 days 20 tabs 0RF codeine-guaifenesin 10-100 mg/5 mL 10 mL PO Q6H 10 days PRN 300 mL 0RF cough Coding Level of Care Code Tele New Pt Level 4 (07627) Complex EM visit Add On G2211 Diagnoses Chronic respiratory failure with hypoxia J96.11 Respiratory failure complication: hypoxia VIKAS (obstructive sleep apnea) G47.33 Asthma-COPD overlap syndrome J44.9 Acute recurrent sinusitis, unspecified location J01.91 Chronicity: acute Recurrence: recurrent Sinusitis location: unspecified location Steroid dependent F19.20 Severe persistent asthma without complication J45.50 Asthma complication type: uncomplicated Asthma persistence: persistent Asthma severity: severe Pleurodynia R07.81 Chest pain type: pleurodynia Time Spent (min) 18
[2024-11-06 15:55] VITALS: BP 132/78; PULSE 74; O2SAT 93; BMI 34.5
--- OUTSIDE RECORDS SUMMARY | 2024-11-06 19:05 | XMS_ITS | Clinical Summary ---
Author Organization [facility] Address [address] [place] [phone] Phone Care Team Providers Care Administrative Program Specialist Name Role Phone Pina Lopez MD Primary Care Provider [phone] Allergies Active Allergy Reactions Criticality Noted Date [...] 2 (two) times a day Active Tiotropium Electra Monohydrate (Spiriva Respimat) 2.5 MCG/ACT aerosol solution [...] mouth 1 (one) time each day Active oxyCODONE-acetami nophen (PERCOCET) 2.5-325 MG per tablet Take 1 [...] route 4 (four) times a day Active ipratropium-albut suraj (DUO-NEB) 0.5-2.5 mg/3 mL nebulizer solution 1 [...] mouth 1 (one) time each day Active amoxicillin-clavu lanate (AUGMENTIN) 875-125 MG per tablet Take 1 [...] (one) time each day 180 tablet 5 11/27/19 25 Active Active Problems Problem Noted Date Diagnosed Date [...] Obstructive sleep apnea syndrome 06/03/2021 Overview (06/03/2021): [facility] Home Polysomnogram: Date 11/10/2017; AHI 9, Unclassified apneas 1; Obstructive apneas 29; Central apneas 10; Mixed apneas 0; hypopneas 63; average oxygen saturation 93% (lowest 88% without saturations <88% for 5% or more of study) [facility] Home Sleep Apnea Test: Date 01/26/2019; Wt [...] 08/28/2024 Refill [facility] [address] [address] [place] [address] Jazmine Lockwood from Last 3 Months Immunizations Name Administration [...] Office Visit [facility] [address] [place] [phone] Carter Samayoa MD [address] [phone] Health Maintenance Due Date Last Done Comments [...] Additional history exists Insurance [employer] Care Teams Administrative Program Specialist Relationship Specialty Start Date End Date Pina Lopez MD [address] [place] [address] PCP - General Internal Medicine 12/28/23
--- OUTSIDE RECORDS SUMMARY | 2024-11-06 19:05 | XMS_ITS | Clinical Summary ---
Author Organization [facility] [facility] it Address [address] [place] [address] Care Team Providers Care Golf Tournament Consultant Name Role Phone Pina Lopez MD Primary Care Provider [phone] Surgical History Surgery Date Site/Laterality Comments CARPAL TUNNEL RELEASE 2008 PROCEDURE: HISTORICAL CARPAL TUNNEL REL CHOLECYSTECTOMY PROCEDURE: HISTORICAL CHOLECYSTECTOMY SECTION PROCEDURE: HISTORICAL DELIVERY OTHER SURGICAL HISTORY PROCEDURE: HISTORY OTHER; COMMENT: breast surgery COLONOSCOPY PROCEDURE: HISTORICAL COLONOSCOPY ESOPHAGOGASTRODUODENOSCOPY PROCEDURE: [place] ESOPHAGOGASTRODUODENOSCOPY TRANSORAL DIAGNOSTIC Medical History Medical History Date Comments Depression DX:Depression; C OMMENT: seen by psych, Dr. Martino Anxiety DX:Anxiety Vitamin D deficiency DX:Vitamin D deficiency Vitamin B12 deficiency DX:Vitami n B12 deficiency Migraine DX:Migraine; COM MENT: botox inj at [facility] on 03/20/2013 VIKAS on CPAP DX:VIKAS on CPAP HTN (hypertension) DX:HTN (hyper tension) Vitiligo 06/10/2017 DX:Vitiligo Morbid obesity with BMI of 4 5.0-49.9, adult ([facility]) 05/02/2017 DX:Morbid obesity with BMI o f 45.0-49.9, adult ([facility]) Allergic rhinitis 05/17/2017 DX:Allergic rh initis CTS (carpal tunnel syndrome) 12/05/2012 DX: CTS (carpal tunnel syndrome); COMMENT: Dr hannah Osteoarthritis 12/05/2012 DX:Osteoarthriti s; COMMENT: knees, spine Asthma-COPD overlap syndrome (CMS/HCC) 08/31/2017 DX:Asthma-COPD overlap syndrome ([facility]) Hypoxia 08/31/2017 DX:Hypoxia Chronic constipation 08/31/2017 DX:Chronic [...] at Not on file Legal Sex Female 5:44 AM EST Gender Identity Not on file Sexual Orientation Not on file Obstetrics History Plan of Treatment Health Maintenance Due Date Last Done Comments Breast Cancer Screening 1965 Hepatitis B Vaccines (1 of 3 - 19+ 3-dose series) 1984 Pneumococcal Vaccine: 50+ Years (1 of 2 - PCV) 1984 Pneumococcal Vaccine: Pediatrics (0 to 5 Years) and At-Risk Patients (6 to 64 Years) (1 of 2 - PCV) 1984 Cervical Cancer Screening: Pap Smear 1986 Zoster Vaccines (1 of 2) 2015 Cholesterol Screening (Lipid Panel) 07/18/2022 Colorectal Cancer Screening: Colonoscopy 07/18/2022 Depression Screening 07/18/2022 HIV Screening 07/18/2022 Hepatitis C Screening 07/18/2022 Social Influencers of Health Screening 07/18/2022 Hypertension/CHF/CAD Annual BMP Blood Test 07/28/2022 DTaP,Tdap,and Td Vaccines (2 - Td or Tdap) 01/02/2023 01/02/2013 COVID-19 Vaccine ( season) 2024 Influenza Vaccine (#1) 2024 9, [...] patient's age to complete this topic Meningococcal B Vacine Aged Out No lo nger eligible based on patient's age to complete this topic RSV Immunization Patients Under 20 months Aged Out No longer eligible based on patient's age to complete this topic Varicella Vaccines Aged Out No longer eligible based on patient's age to complete this topic Care Teams Golf Tournament Consultant Relationship Specialty Start Date End Date Pina Lopez MD 11 [facility] PCP - General Internal Medicine 06/21/17
== END 2024-11-06 16:28 | disposition home or self-care (01) ==
LOC: HO.HPS 15:13
PROVIDERS: PCP Pediatrics; Visit Provider Hospitalist
DX: J44.9 Chronic obstructive pulmonary disease, unspecified (principal); J96.11 Chronic respiratory failure with hypoxia; G47.33 Obstructive sleep apnea (adult) (pediatric); R07.81 Pleurodynia; F19.20 Other psychoactive substance dependence, uncomplicated; J45.50 Severe persistent asthma, uncomplicated
CPT/HCPCS: 99214; G2211

== ENCOUNTER → 2024-11-06 15:13 | Outpatient (BNVA) | payer OTHER, SELFPAY | PROVIDERS: PCP Pediatrics; Visit Provider Hospitalist | DX: J44.9 Chronic obstructive pulmonary disease, unspecified (principal); J45.50 Severe persistent asthma, uncomplicated; J96.10 Chronic respiratory failure, unspecified whether with hypoxia or hypercapnia; J01.91 Acute recurrent sinusitis, unspecified; G47.33 Obstructive sleep apnea (adult) (pediatric); F19.20 Other psychoactive substance dependence, uncomplicated; R07.81 Pleurodynia; Z99.81 Dependence on supplemental oxygen; Z99.89 Dependence on other enabling machines and devices | CPT/HCPCS: 99212 ==

== ENCOUNTER 2024-11-13 14:02 | Outpatient (AMB) | payer OTHER, SELFPAY ==
--- NOTE | 2024-11-13 14:09 | MHC.OFFVIS ---
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 There is the mention of a prior medical condition from 2019, where she had a scan and was noted to have a 1.7 cm splenic artery aneurysm. The initiation of supplemental oxygen noted a change in her respiratory management, reflecting potential progression in her respiratory care needs. Recently, a CT scan performed in [facility] at the behest of a kidney specialist was an important aspect of her current evaluation. Specific findings from this recent imaging were unknown at the time. The patient's previous interaction with a primary care doctor indicated ongoing monitoring, though she declined some initial follow-up. She now presents for vascular evaluation [facility] Medical History long-term (current) use of systemic steroids Lower extremity edema Asthma Steroid dependent Hematuria Chronic respiratory failure COPD exacerbation Sinusitis VIKAS (obstructive sleep apnea) Asthma-COPD overlap syndrome Surgical History Carpal tunnel syndrome Family History Sister Asthma Social History Patient Tobacco Use Status: Never used Tobacco Review of Systems Const All systems reviewed & are unremarkable except as noted in HPI and below Reports no additional complaints ENT Reports Normal hearing present Card Denies chest pain, Denies chest pain at rest, Denies chest pain with activity and Denies pedal edema Resp Denies cough GI Denies abdominal pain Musc Denies abnormal gait, Denies muscle cramps and Denies radiating pain into limb Skin/Breast Denies skin ulcer and Denies wounds Neuro Reports Normal hearing present and Denies abnormal gait Psych Reports no additional complaints Physical Exam Vital Signs: BMI result Body Mass Index 34.4 Const General: cooperative, healthy appearing and comfortable Orientation/consciousness: oriented to person, oriented to place and oriented to time HEENT Head: Yes normal to inspection Neck Neck: Yes normal visual inspection Carotids: no bruits Chest Chest palpation & inspection: normal inspection of the chest Resp Effort & Inspection: normal respiratory effort and able to speak in complete sentences Auscultation: clear to auscultation bilaterally, no crackles, no rales, no rhonchi and no wheezes Cardio Rate: regular rate Rhythm: regular rhythm Heart sounds: S1 normal heart sound present and S2 normal heart sound present Bruits: no carotid bruits Peripheral pulses: Peripheral pulses 2+ throughout GI Inspection: Yes normal to inspection Skin Wounds: no wounds Hair: normal Neuro General: oriented to person, oriented to place and oriented to time Cranial nerves: Yes CN's II-XII intact bilaterally and Yes Normal hearing present Cognition (Neuro): normal cognition Motor exam (neuro): 5/5 motor strength present throughout Extrem Other: venous exam: No significant superficial varicosities or spider telangiectasias, minimal edema General: No clubbing, No cyanosis and No edema Psych Appearance: grossly normal Mental Status: mental status grossly normal Speech and movement: Normal speech and movement present Assessment & Plan Assessment & Plan (1) Splenic artery aneurysm: Code(s): I72.8 - Aneurysm of other specified arteries Category: Medical Plan: During this visit, I reviewed with the patient the necessity to obtain the report from the recent CT scan conducted at [facility] to establish a diagnostic baseline. We discussed planning a follow-up ultrasound in approximately six months to evaluate any changes and to provide comparative results for her splenic artery aneurysm. The importance of these studies was emphasized to guide any necessary future interventions. Thank you for allowing us to assist in her care. If there are any questions or concerns please do not hesitate to contact us. Orders: Orders US abdominal aortic aneurysm 6 Months I72.8 - Aneurysm of other specified arteries Coding Level of Care Code New Pt Level 4 (64624) Diagnoses Splenic artery aneurysm I72.8
[2024-11-13 14:11] VITALS: BMI 34.4
--- OUTSIDE RECORDS SUMMARY | 2024-11-13 16:47 | XMS_ITS | Clinical Summary ---
Author Organization [facility] Address [address] [address] Phone Care Team Providers Care Assistance Specialist Name Role Phone Pina Lopez MD Primary Care Provider [phone] Allergies Active Allergy Reactions Criticality Noted Date [...] 2 (two) times a day Active Tiotropium [place] Monohydrate (Spiriva Respimat) 2.5 MCG/ACT aerosol solution [...] Obstructive sleep apnea syndrome 06/03/2021 Overview (06/03/2021): [facility] Home Polysomnogram: Date 11/10/2017; AHI 9, Unclassified apneas 1; Obstructive apneas 29; Central apneas 10; Mixed apneas 0; hypopneas 63; average oxygen saturation 93% (lowest 88% without saturations <88% for 5% or more of study) [facility] Home Sleep Apnea Test: Date [...] 08/28/2024 Refill [facility] [address] [place] [address] Jazmine Lockwood from Last 3 [...] Visit [facility] [address] [place] [phone] Carter Samayoa MD [address] [phone] Health Maintenance Due Date Last Done Comments [...] HEALTH MEDICAID [facility] MEDICAID Care Teams Assistance Specialist Relationship Specialty Start Date End Date Pina Lopez MD [address] [place] [address] PCP - General Internal Medicine 12/28/23
--- OUTSIDE RECORDS SUMMARY | 2024-11-13 16:47 | XMS_ITS | Clinical Summary ---
Author Organization [facility] it Address [address] [place] [address] Care Team Providers Care Apparel Patternmaker Name Role Phone Pina Lopez MD Primary Care Provider [phone] Surgical History Surgery Date Site/Laterality Comments CARPAL TUNNEL RELEASE 2008 PROCEDURE: HISTORICAL CARPAL TUNNEL REL CHOLECYSTECTOMY PROCEDURE: HISTORICAL CHOLECYSTECTOMY SECTION PROCEDURE: HISTORICAL DELIVERY OTHER SURGICAL HISTORY PROCEDURE: HISTORY OTHER; COMMENT: breast surgery COLONOSCOPY PROCEDURE: HISTORICAL COLONOSCOPY ESOPHAGOGASTRODUODENOSCOPY PROCEDURE: [place] ESOPHAGOGASTRODUODENOSCOPY TRANSORAL DIAGNOSTIC Medical History Medical History Date Comments Depression DX:Depression; C OMMENT: seen by psych, Dr. Martino Anxiety DX:Anxiety Vitamin D deficiency DX:Vitamin D deficiency Vitamin B12 deficiency DX:Vitami n B12 deficiency Migraine DX:Migraine; COM MENT: botox inj at [facility] on 03/20/2013 VIKAS on CPAP DX:VIKAS on CPAP HTN (hypertension) DX:HTN (hyper tension) Vitiligo 06/10/2017 DX:Vitiligo Morbid obesity with BMI of 4 5.0-49.9, adult ([facility]) 05/02/2017 DX:Morbid obesity with BMI o f 45.0-49.9, adult ([facility]) Allergic rhinitis 05/17/2017 DX:Allergic rh initis CTS (carpal tunnel syndrome) 12/05/2012 DX: CTS (carpal tunnel syndrome); COMMENT: Dr hannah Osteoarthritis 12/05/2012 DX:Osteoarthriti s; COMMENT: knees, spine Asthma-COPD overlap syndrome (CMS/HCC) 08/31/2017 DX:Asthma-COPD overlap syndrome ([facility]) Hypoxia 08/31/2017 DX:Hypoxia Chronic constipation 08/31/2017 [...] age to complete this topic Care Teams Apparel Patternmaker Relationship Specialty Start Date End Date Pina Lopez MD 11 [facility] [place] PCP - General Internal Medicine 06/21/17
== END 2024-11-13 15:15 | disposition home or self-care (01) ==
LOC: HO.HVS 14:03
PROVIDERS: PCP Nurse Practitioner Family; Visit Provider Surgery Vascular Surgery
DX: I72.8 Aneurysm of other specified arteries (principal)
CPT/HCPCS: 99204

== ENCOUNTER → 2024-11-13 14:02 | Outpatient (BNVA) | payer OTHER, SELFPAY | PROVIDERS: PCP Nurse Practitioner Family; Visit Provider Surgery Vascular Surgery | DX: I72.8 Aneurysm of other specified arteries (principal) | CPT/HCPCS: 99202 ==

== ENCOUNTER 2024-11-30 13:14 | Outpatient (REF) | payer OTHER, SELFPAY ==
--- NOTE | ~2024-11-30 | MM_ITS ---
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 COMPARISON: There are no prior studies for comparison. FINDINGS: The bone mineral density of the lumbar spine is 0.950 with a T-score of -1.8, and a Z-score of -1.7. This is indicative of osteopenia. The bone mineral density of the left total hip is 1.059 with a T-score of 0.4, and a Z-score of 0.5. This is indicative of normal bone mineral density. The bone mineral density of the left femoral neck is 0.983 with a T-score of -0.4, and a Z-score of 0.1. This is indicative of normal bone mineral density. FRACTURE RISK: The FRAX index suggests a risk of major osteoporotic fracture of 5.3%, and of hip fracture 0.2%. MM/XR DEXA axial skeleton IMPRESSION: Based on bone mineral density, and according to World Health Organization (WHO) criteria, the diagnosis is consistent with osteopenia. All bone density values are in grams per centimeter squared (g/cm2). Statistically, 68% of repeat scans fall within 1 SD (+/- 0.010 g/cm2 for AP spine L1-L4) and 1 SD (+/- 0.012 g/cm2 for femur total) FRAX is a trademark of the [employer] Met[employer] Disease, a World Health Organization (WHO) Collaborating Center. Electronically signed by: Sherman Lanza MD 11/30/2024 02:50 PM EDT
--- OUTSIDE RECORDS SUMMARY | 2024-11-30 13:44 | XMS_ITS | Encounter Summary ---
Author Organization [facility] Address [address] [address] Phone Care Team Providers Care Earth Observations Chief Scientist Name Role Phone iPna Lopez MD Primary Care Provider [phone] Reason for Visit * Reason Comments Med Refill Encounter Details Date Type Department Care Team ([facility] Contact Info) Description 11/25/2024 Refill [facility] [address] [address] Carter Samayoa MD [facility] [address] [address] Social History Tobacco Use Types Packs/Day Years [...] EST Office Visit [facility] [address] [address] Carter Samayoa MD [address] [address] documented as of this encounter Visit Diagnoses Not on filedocumented in this encounter Care Teams Earth Observations Chief Scientist Relationship Specialty Start Date End Date Pina Lopez MD [address] [place] [address] PCP - General Internal Medicine 12/28/23 documented as of this encounter
--- OUTSIDE RECORDS SUMMARY | 2024-11-30 13:44 | XMS_ITS | Clinical Summary ---
Author Organization [facility] Address [address] [address] Phone Care Team Providers Care Jockey Room Custodian Name Role Phone Pina Lopez MD Primary Care Provider [phone] Allergies Active Allergy Reactions Criticality Noted Date [...] 2 (two) times a day Active Tiotropium [place] Monohydrate (Spiriva Respimat) 2.5 MCG/ACT aerosol solution [...] Other route 3 (three) times a day 06/01/20 18 Active isosorbide mononitrate (IMDUR) 30 MG 24 hr tablet Take 60 mg by mouth every morning 05/10/20 21 Active metoprolol tartrate 25 MG tablet Take 25 mg by mouth 2 (two) times a day 05/24/20 21 Active fluticasone (FLONASE) 50 MCG/ACT nasal spray [...] HYDROBROMIDE PO Take 40 mg by mouth 06/29/20 19 Active CLONAZEPAM PO Take 1 mg by mouth 02/23/20 16 Active ondansetron (ZOFRAN) 4 MG tablet TAKE 1 TABLET(4 MG) BY MOUTH EVERY 12 HOURS NEEDED FOR NAUSEA OR VOMITING 30 tablet 1 07/07/20 22 Active torsemide (DEMADEX) 20 MG tablet Take 2 tablets (40 mg total) by mouth 1 (one) time each day 180 tablet 2 12/23/19 23 Active traZODone (DESYREL) 50 MG tablet Take 50 mg by mouth every night 01/27/20 24 Active spironolactone (ALDACTONE) 25 MG tablet TAKE 2 TABLETS BY MOUTH 1 TIME EACH DAY. 180 tablet 11/26/19 25 Active spironolactone (Aldactone) 25 MG tablet Take 2 tablets (50 mg total) by mouth 1 (one) time each day 180 tablet 08/28/19 25 025 Discontinued Active Problems Problem Noted Date Diagnosed Date [...] Obstructive sleep apnea syndrome 06/03/2021 Overview (06/03/2021): [facility] Home Polysomnogram: Date 11/10/2017; AHI 9, Unclassified apneas 1; Obstructive apneas 29; Central apneas 10; Mixed apneas 0; hypopneas 63; average oxygen saturation 93% (lowest 88% without saturations <88% for 5% or more of study) [facility] Home Sleep Apnea Test: Date 01/26/2019; Wt 260#; BMI 42; GABO 12, AI 4; HI 8; Unclassified apneas 4; Obstructive apneas 16; Central apneas 25; Mixed apneas 1; hypopneas 84; average oxygen saturation 94% (lowest 79% without saturations <88% for 5% or more of study) - Obstructive Sleep Apnea - mild; mostly hypopneas with obstructive apneas; without sleep related hypoventilation by 2018 home polysomnogram. Vitamin B12 deficiency 06/03/2021 Vitamin [...] Encounters Date Type Department Care Team Description 11/25/2024 Refill [facility] [address] [address] Carter Samayoa MD from Last 3 Months Immunizations Immunization Administration Dates Next Due Influenza, MDCK, PF, [...] Office Visit [facility] [address] [address] Carter Samayoa MD [address] [address] Health Maintenance Due Date Last Done Comments Breast Cancer Screening 1965 Hepatitis B Vaccine (1 of 3 - 19+ 3-dose series) 1984 Colorectal Cancer Screening: Annual FOBT 2014 Colorectal Cancer Screening: Colonoscopy 2014 Colorectal Cancer Screening: Sigmoidoscopy 2014 Pneumococcal Vaccine: 50+ Ye ars (3 of 3 - PCV) 03/01/2018 03/01/2017, 04/23/2008 Influenza Vaccine (Season Ended) 2025 08/03/2021, 09/07/2019, 08/24/2018, Additional history exists Pneumococcal Vaccine: Peds ( 0 to 5 Years) and At-Risk Patients (6 to 49 Years) Discontinued 03/01/2017, 04/23/2008 Insurance [facility] Medicaid [facility] Medicaid Member Subscriber Plan / Payer (Ef fective 2017-Present) Name:Sonya Shaw Relation to Subscriber:Self Name:Madhav Nelsondo Sheri Payer ID:Not on file Type:Not on file Address: [place] [id number] Care Teams Jockey Room Custodian Relationship Specialty Start Date End Date Pina Lopez MD [address] [place] [address] PCP - General Internal Medicine 12/28/23
--- OUTSIDE RECORDS SUMMARY | 2024-11-30 13:44 | XMS_ITS | Clinical Summary ---
Author Organization [facility] it Address [address] [place] [address] Care Team Providers Care Ambulatory Services Representative Name Role Phone Pina Lopez MD Primary Care Provider [phone] Surgical History Surgery Date Site/Laterality Comments CARPAL TUNNEL RELEASE 2008 PROCEDURE: HISTORICAL CARPAL TUNNEL REL CHOLECYSTECTOMY PROCEDURE: HISTORICAL CHOLECYSTECTOMY SECTION PROCEDURE: HISTORICAL DELIVERY OTHER SURGICAL HISTORY PROCEDURE: HISTORY OTHER; COMMENT: breast surgery COLONOSCOPY PROCEDURE: HISTORICAL COLONOSCOPY ESOPHAGOGASTRODUODENOSCOPY PROCEDURE: [place] ESOPHAGOGASTRODUODENOSCOPY TRANSORAL DIAGNOSTIC Medical History Medical History Date Comments Depression DX:Depression; C OMMENT: seen by psych, Dr. Martino Anxiety DX:Anxiety Vitamin D deficiency DX:Vitamin D deficiency Vitamin B12 deficiency DX:Vitami n B12 deficiency Migraine DX:Migraine; COM MENT: botox inj at [facility] on 03/20/2013 VIKAS on CPAP DX:VIKAS on CPAP HTN (hypertension) DX:HTN (hyper tension) Vitiligo 06/10/2017 DX:Vitiligo Morbid obesity with BMI of 4 5.0-49.9, adult ([facility] V24, [facility] V28) 05/02/2017 DX:Morbid obesity wit h BMI of 45.0-49.9, adult ([facility]) Allergic rhinitis 05/17/2017 DX:Allergic rh initis CTS (carpal tunnel syndrome) 12/05/2012 DX: CTS (carpal tunnel syndrome); COMMENT: Dr hannah Osteoarthritis 12/05/2012 DX:Osteoarthriti s; COMMENT: knees, spine Asthma-COPD overlap syndrome ([facility] V24, [facility] V28) 08/31/2017 DX:Asthma-COPD overlap syndr ome (HCC) Hypoxia 08/31/2017 DX:Hypoxia Chronic constipation 08/31/2017 DX:Chronic [...] COVID-19 Vaccine ( season) 2024 Influenza Vaccine (Season Ended) 2025 08/24/2018, 06/14/2017, 05/30/2017, Additional history exists RSV Immunization Adult Patients (1 - 1-dose 75+ series) 2040 HIB [...] age to complete this topic Meningococcal B Vaccine Aged Out No l onger eligible based on patient's age to complete this topic RSV Immunization Patients Under 20 months Aged Out No longer eligible based on patient's age to complete this topic Varicella Vaccines Aged Out No longer eligible based on patient's age to complete this topic Care Teams Ambulatory Services Representative Relationship Specialty Start Date End Date Pina Lopez MD 11 [facility] [place] PCP - General Internal Medicine 06/21/17
--- OUTSIDE RECORDS SUMMARY | 2024-11-30 13:44 | XMS_ITS | Data Portability ---
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 garret Not available 07/05/2024 12:52:57 07/18/2024 07/18/2024 I am seeing the patient today under the supervision of Dr Smalls who was available but who did not see the patient. garret Not available 07/18/2024 13:56:40 08/24/2024 08/24/2024 I am seeing the patient today under the supervision of Dr. Smalls who was available but who did not see the patient. Patient comes to the office with known Bi-lateral shoulder impingement syndrome. The patient has done well with conservative management for their shoulder pain. Has had increasing discomfort over the past several weeks without injury. Pain is generalized about the shoulder. Off and on discomfort is noted at night. PFMSH and ROS has been reviewed, updated, and signed by me and is located in the patient's chart. PHYSICAL FINDINGS: The patient is well appearing, in no apparent distress, alert and oriented to person, place and time. Gait is symmetric. No significant swelling, warmth or erythema about either shoulder. There is mild tenderness to palpation about the shoulder and AC joint. Active range of motion of the shoulder is near full with mild to moderate pain through mid range manipulations. 4/5 strength of the shoulder, but the rotator cuff seems to fire well. Good stability of the shoulder. Peripheral, vascular, lymphatic examination, skin, neurologic coordination, reflexes, sensation are within normal limits. ASSESSMENT: Impingement SyndromeBi-late ral shoulder. PLAN: The patient has done well with conservative management in regards to the Bi-lateral shoulder. We discussed the role of medications, physical therapy, injections, and potential surgical interventions depending on conservative outcome Continued conservative management recommended. Along with cortisone injection today. Please see procedure note. Patient will follow up as directed. Not available 08/24/2024 14:25:11 10/01/2024 10/01/2024 I am seeing the patient today under the supervision of Dr Smalls who was available but who did not see the patient. [email or web address] Not available 10/01/2024 13:06:30 11/23/2024 11/23/2024 I am seeing the patient today under the supervision of Dr Smalls who was available but who did not see the patient. Not available 11/23/2024 15:05:24 Plan of Treatment Reminders Order Date Submit Date Provider Last Modified By Organization Details Last Modified Time Details Appointments INJECTION ONLY 15 2024 03:00P M Mike Rasmussen PA-C Not available Not available Not available RECHECK 15 2024 02:30P M Mike Rasmussen PA-C Not available Not available Not available Lab None recorded. Referral None recorded. Procedures None recorded. Surgeries None recorded. Imaging None recorded. Medication Orders tizanidin e 4 mg tablet 2023 [facility]/Pharmacy #[id number], [address] [place], [address], 07/18/2024 14:01:47 diclofena c sodium 75 mg tablet,de layed release 2023 024 [facility]/Pharmacy #[id number], [address] [place], [address], 07/05/2024 13:21:15 cyclobenz aprine 10 mg tablet 2023 [id number], [address] [place], [address], 07/05/2024 13:21:15 Patient TargetsNo targets recorded. Patient InstructionsNo instructions recorded. Reason for Referral None Reported. 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 Status: 'A'; Not Available [facility] 4 10:55:34 Chronic obstructi ve pulmonary disease 31002766 Active 2018 Status: 'A'; Not Available [facility] 4 10:55:34 Impingeme nt syndrome of right shoulder region 708533211097 102 Active 2015 Problem Code: M75.41; Problem Code Type: ICD-10; Status: 'A'; Not Available [facility] 4 10:55:34 Pain of left wrist 898383352998 102 Active 2017 Problem Code: M25.532; Problem Code Type: ICD-10; Status: 'A'; Not Available [facility] 4 10:55:34 Pulmonary hypertens ion 06465256 Active 2018 Status: 'A'; Not Available [facility] 4 10:55:34 Impingeme nt syndrome of left shoulder region 739369852857 104 Active 2015 Problem Code: M75.42; Problem Code Type: ICD-10; Status: 'A'; Not Available [facility] 4 10:55:34 Joint pain in left hand 445204965670 9106 Active 2017 Problem Code: M25.542; Problem Code Type: ICD-10; Status: 'A'; Not Available [facility] 4 10:55:35 Idiopathi c osteoarth ritis 528460680 Active 2017 Problem Code: M17.0; Problem Code Type: ICD-10; Status: 'A'; Not Available [facility] 4 10:55:35 Pain of left hip joint 405622238331 100 Active 2023 SANDRA loving [place] [facility] 4 08:48:31 Hip pain 08273968 Active 2023 SANDRA loving [place] [facility] 4 08:50:25 Trochante betty bursitis of right hip 924123911603 100 Active 2023 Mike Rasmussen PA-C [address], [place], [address] , [facility] 4 13:56:34 Trochante betty bursitis of left hip 156987537514 103 Active 2023 Mike Rasmussen PA-C [address], [place], [address] , [facility] 4 13:56:35 Lateral epicondyl itis of left humerus 537119329459 100 [facility] 4 15:19:35 Problem Notes None recorded. Procedures Surgical History Date Name Laterality Status Provider Name and Address Organization Details Recorded Time 5 JZShoulder INJ Lucio completed Mkie Rasmussen PA-C [address], [place], [address], [facility] 11/23/2024 15:05:18 5 JZHip Inj Lucio completed Mike Rasmussen PA-C [address], [place], [address], [facility] 10/01/2024 13:06:11 5 JZShoulder INJ Lucio completed Mike Rasmussen PA-C [address] [facility], [place], [address], [facility] 08/24/2024 14:24:53 4 JZHip Inj Lucio completed Mike Rasmussen PA-C [address] [facility], [place], [address], [facility] 07/18/2024 13:56:27 4 JZShoulder INJ Lucio completed Mike Rasmussen PA-C [address], [place], [address], [facility] 07/05/2024 12:52:47 4 JZShoulder INJ completed Mike Rasmussen PA-C [address], [place], [address], [facility] 04/18/2024 09:51:17 4 JZHip Inj Lucio completed Mike Rasmussen PA-C [address], [place], [address], [facility] 04/18/2024 06:33:12 4 JZShoulder INJ Lucio completed Mike Rasmussen PA-C [address], [place], [address], [facility] 04/04/2024 13:11:45 4 JZShoulder INJ completed Mike Rasmussen PA-C [address], [place], [address], [facility] 12/19/2023 15:35:37 4 JZHip Inj completed Mike Rasmussen PA-C [address], [place], [address], [facility] 12/19/2023 15:35:39 4 JZHip Inj completed Mike Rasmussen PA-C [address], [place], [address], [facility] 12/05/2023 15:24:36 4 JZShoulder INJ Lucio completed DIANE FISH [facility] 11/28/2023 16:04:01 Imaging Results None recorded. Procedure Notes None recorded. Medical Equipment None Reported. Allergies No known drug allergies Medications Name Sig Start Date Stop Date Status Note LastModified by Organization Details LastModified Time vitamin d3 50 mcg (1999 ut) caps active Not Available Not Available Not Available melatonin 5 mg tabs active Not Available Not Available Not Available riboflavin 400 mg tabs 07/05 completed Not Available Not Available Not Available multivitami n tablet TAKE 1 TABLET BY MOUTH EVERY DAY active Not Available Not Available No t Available fluoxetine 40 mg capsule TAKE 1 CAPSULE DAILY FOR ANXIETY/D EPRESSION active Not Available Not Available No t Available cyclobenzap rine 10 mg tablet Take 1 tablet 3 times a day by oral route. active Not Available Not Available No t Available amoxicillin 500 mg capsule TAKE 4 PILLS 1 HOUR PRIOR TO PROCEDURE active Not Available Not Available No t Available atorvastati n 40 mg tablet TAKE 1 TABLET BY MOUTH EVERY DAY AT BEDTIME active Not Available Not Available No t Available buspirone 5 mg tablet PLEASE SEE ATTACHED FOR DETAILED DIRECTION S active Not Available Not Available No t Available hydralazine 10 mg tablet TAKE 2 TABLETS BY MOUTH EVERY DAY NEEDED FOR HYPERTENS ION [id number]/05 completed Not Available Not Available Not Available atorvastati n 80 mg tablet TAKE 1 TABLET BY MOUTH EVERY DAY FOR 90 DAYS active Not Available Not Available No t Available acetaminoph en 325 mg tablet TAKE 2 TABLET BY MOUTH EVERY 6 HOURS active Not Available Not Available No t Available prednisone 10 mg tablet PLEASE SEE ATTACHED FOR DETAILED DIRECTION S active Not Available Not Available No t Available doxycycline hyclate 100 mg capsule active Not Available Not Available N ot Available ipratropium 0.5 mg-albutero l 3 mg (2.5 mg base)/3 mL nebulizatio n soln INHALE 1 VIAL VIA NEBULIZER 4 TIMES DAILY NEEDED FOR WHEEZING active Not Available Not Available No t Available torsemide 20 mg tablet TAKE 1 TABLET BY MOUTH TWICE A DAY active Not Available Not Available No t Available quetiapine 300 mg tablet TAKE 1 TABLET BY MOUTH NIGHTLY FOR SLEEP active Not Available Not Available No t Available trazodone 50 mg tablet TAKE 1/2 TABLET BY MOUTH DAILY AT BEDTIME active Not Available Not Available No t Available cetirizine 10 mg tablet TAKE 1 TABLET DAILY active Not Available Not Available No t Available cefpodoxime 200 mg tablet TAKE 1 TABLET BY MOUTH TWICE A DAY WITH MEALS active Not Available Not Available No t Available azithromyci n 250 mg tablet TAKE 1 TABLET ORALLY 3 TIMES A WEEK FOR 28 DAYS ON MONDAYS/ /FRIDAYS active Not Available Not Available No t Available ibuprofen 800 mg tablet TAKE 1 TABLET BY MOUTH THREE TIMES A DAY active Not Available Not Available No t Available tizanidine 4 mg tablet TAKE 1 TABLET BY MOUTH EVERY 8 HOURS NEEDED active Not Available Not Available No t Available ketotifen 0.025 % (0.035 %) eye drops INSTILL 1 DROP IN EACH EYE UP TO TWICE A DAY NEEDED active Not Available Not Available No t Available sumatriptan 100 mg tablet TAKE 1 TABLET BY MOUTH DAILY NEEDED FOR MIGRAINE active Not Available Not Available No t Available prednisone 20 mg tablet TAKE 2 TABS DAILY X 5 DAYS, THEN 1 TABLET DAILY X 5 DAYS 07/05 completed Not Available Not Available Not Available isosorbide mononitrate ER 30 mg tablet,exte nded release 24 hr TAKE 1 TABLET BY MOUTH EVERY DAY AT BEDTIME FOR 90 DAYS active Not Available Not Available No t Available quetiapine 200 mg tablet active Not Available Not Available Not Available hydralazine 25 mg tablet TAKE 1 TABLET BY MOUTH TWICE A DAY active Not Available Not Available No t Available omeprazole 40 mg capsule,del ayed release TAKE 1 CAPSULE BY MOUTH EVERY DAY active Not Available Not Available No t Available aspirin 81 mg tablet,sarah yed release TAKE 1 TABLET BY MOUTH EVERY DAY FOR 90 DAYS active Not Available Not Available No t Available doxycycline monohydrate 100 mg tablet TAKE 1 TABLET BY MOUTH TWICE A DAY FOR 14 DAYS 12/18 completed Not Available Not Available Not Available quetiapine 100 mg tablet TAKE 1.5 TABLETS BY MOUTH NIGHTLY FOR SLEEP active Not Available Not Available No t Available acetaminoph en 500 mg tablet TAKE 2 TABLETS BY MOUTH 3 TIMES A DAY NEEDED FOR PAIN active Not Available Not Available No t Available spironolact one 25 mg tablet TAKE 2 TABLETS BY MOUTH 1 TIME EACH DAY. active Not Available Not Available No t Available butalbital- acetaminoph en-caffeine 50 mg-325 mg-40 mg tablet active Not Available Not Available Not Available acetaminoph en ER 650 mg tablet,exte nded release active Not Available Not Available Not Available isosorbide mononitrate ER 60 mg tablet,exte nded release 24 hr TAKE 1 TABLET BY MOUTH EVERY DAY IN THE MORNING FOR 90 DAYS active Not Available Not Available No t Available famotidine 20 mg tablet TAKE 1 TABLET BY MOUTH TWICE A DAY active Not Available Not Available No t Available methocarbam ol 750 mg tablet TAKE 1 TABLET BY MOUTH EVERY 6 HOURS NEEDED FOR MUSCLE SPASM active Not Available Not Available No t Available baclofen 10 mg tablet TAKE 1 TABLET BY MOUTH THREE TIMES A DAY NEEDED FOR SPASM active Not Available Not Available No t Available Banophen 25 mg tablet TAKE 1 TABLET BY MOUTH THREE TIMES DAILY active Not Available Not Available No t Available buspirone 10 mg tablet PLEASE SEE ATTACHED FOR DETAILED DIRECTION S active Not Available Not Available No t Available lidocaine 5 % topical patch APPLY 1 PATCH TOPICALLY ONCE DAILY FOR 30 DAYS, LEAVE ON MOST PAINFUL AREA FOR UP TO 12 HOURS active Not Available Not Available No t Available metoprolol tartrate 50 mg tablet TAKE 1 TABLET BY MOUTH TWICE DAILY WITH FOOD active Not Available Not Available No t Available fluoxetine 10 mg capsule TAKE 2 CAPSULES BY MOUTH EVERY DAY active Not Available Not Available No t Available nitroglycer in 0.[address] 1 TABLET UNDER THE TONGUE EVERY 5 MINUTES NEEDED FOR CHEST PAIN FOR 30 DAYS active Not Available Not Available No t Available diclofenac sodium 25 mg tablet,sarah yed release 1 TABLET BY MOUTH 3 TIMES A DAY NEEDED FOR PAIN active Not Available Not Available No t Available gabapentin 300 mg capsule TAKE 2 CAPSULES BY MOUTH 3 TIMES A DAY active Not Available Not Available No t Available Banophen 25 mg capsule TAKE 1 CAPSULE BY MOUTH THREE TIMES A DAY active Not Available Not Available No t Available aspirin 81 mg chewable tablet CHEW AND SWALLOW 1 TABLET BY MOUTH EVERY DAY active Not Available Not Available No t Available diclofenac sodium 75 mg tablet,sarah yed release TAKE 1 TABLET BY MOUTH TWICE A DAY active Not Available Not Available No t Available verapamil ER (SR) 240 mg tablet,exte nded release TAKE 1 TABLET BY MOUTH EVERY DAY active Not Available Not Available No t Available montelukast 10 mg tablet TAKE 1 TABLET BY MOUTH EVERY DAY active Not Available Not Available No t Available hydroxyzine HCl 25 mg tablet TAKE 1 TABLET BY MOUTH DAILY NEEDED FOR ANXIETY active Not Available Not Available No t Available codeine 10 mg-guaifene sin 100 mg/5 mL oral liquid TAKE 10 MLS BY MOUTH EVERY 6 HOURS NEEDED FOR COUGH FOR 10 DAYS active Not Available Not Available No t Available hydrochloro thiazide 25 mg tablet TAKE 1 TABLET BY MOUTH EVERY DAY IN THE MORNING FOR 30 DAYS 07/05 completed Not Available Not Available Not Available furosemide 20 mg tablet TAKE 1 TABLET BY MOUTH DAILY active Not Available Not Available No t Available epinephrine 0.3 mg/0.3 mL injection, auto-inject or 0.3 MG INTRAMUSC ULAR ONCE FOR ALLERGIC REACTION. MAY REPEAT IF NECESSARY active Not Available Not Available No t Available ketoconazol e 2 % topical cream APPLY TO HANDS AND FEET TWICE A DAY NEEDED FOR FLARES active Not Available Not Available No t Available ondansetron 4 mg disintegrat ing tablet TAKE 1 TABLET BY MOUTH EVERY 4 HOURS NEEDED FOR NAUSEA active Not Available Not Available No t Available spironolact one 50 mg tablet TAKE 1 TABLET BY MOUTH EVERY DAY active Not Available Not Available No t Available verapamil ER 240 mg 24 hr capsule,ext ended release TAKE 1 CAPSULE BY MOUTH EVERY DAY active Not Available Not Available No t Available amoxicillin 875 mg-potassiu m clavulanate 125 mg tablet TAKE 1 TABLET BY MOUTH TWICE A DAY FOR 10 DAYS active Not Available Not Available No t Available amoxicillin 500 mg-potassiu m clavulanate 125 mg tablet 1 TABLET TWICE A DAY 12/04 completed Not Available Not Available Not Available Ventolin HFA 90 mcg/actuati on aerosol inhaler INHALE 2 PUFFS BY MOUTH EVERY 6 HOURS NEEDED FOR WHEEZING active Not Available Not Available No t Available buspirone 15 mg tablet TAKE 1 TABLET IN THE AM AND 1 TABLET IN THE PM FOR ANXIETY active Not Available Not Available No t Available oxycodone 5 mg tablet TAKE 2 TABLETS BY MOUTH 2 TO 3 TIMES DAILY NEEDED FOR SEVERE PAIN 07/05 completed Not Available Not Available Not Available moxifloxaci n 0.5 % eye drops INSTILL 1 DROP TWICE A DAY INTO RIGHT EYE FOR 3 DAYS active Not Available Not Available No t Available metoprolol tartrate 25 mg tablet TAKE 1 TABLET BY MOUTH TWICE DAILY WITH FOOD active Not Available Not Available No t Available melatonin Melatonin 5MG Tablet 2023 active Statu s: 'Curr ent'; Not Available Not Available Not Available oxycodone 10 mg tablet TAKE 1 TABLET BY MOUTH EVERY 8 HOURS NEEDED FOR SEVERE PAIN ONLY active Not Available Not Available No t Available melatonin 5 mg tablet 5 MG ORALLY BEDTIME NEEDED FOR SLEEP FOR 30 DAYS active Not Available Not Available No t Available oxycodone HCl-oxycodo ne-ASA three times a day 1 TAB TID PRN PAIN MUST LAST [address] WHILE TAKING THIS MEDICATIO N 11/24 completed Statu s: 'Disc ontin ued'; Not Available Not Available Not Available Botox 200 unit injection active Not Available Not Available No t Available butalbital- acetaminoph en-caffeine 50 mg-300 mg-40 mg capsule TAKE 1 CAPSULE BY MOUTH EVERY 4 HOURS NEEDED MAX 20 IN 23 DAYS NEEDED MIGRAINE active Not Available Not Available No t Available Vitamin D3 50 mcg (2,000 unit) capsule TAKE 1 CAPSULE BY MOUTH DAILY active Not Available Not Available No t Available roflumilast 500 mcg tablet TAKE 1 TABLET BY MOUTH EVERY DAY active Not Available Not Available No t Available OxyContin 60 mg tablet,don h resistant,e xtended release TAKE 1 TABLET BY MOUTH THREE TIMES A DAY, MAY FILL FEWER active Not Available Not Available No t Available Stiolto Respimat 2.5 mcg-2.5 mcg/actuati on solution for inhalation 2 PUFF INHALED DAILY FOR 30 DAYS active Not Available Not Available No t Available riboflavin (vitamin B2) 400 mg tablet TAKE 1 TABLET BY MOUTH EVERY DAY active Not Available Not Available No t Available Xolair 75 mg/0.5 mL subcutaneou s syringe active Not Available Not Available No t Available Xolair 150 mg/mL subcutaneou s syringe active Not Available Not Available No t Available Breztri Aerosphere 160 mcg-9mcg-4. 8mcg/actuat ion HFA aerosol inhaler TAKE 2 PUFFS BY MOUTH TWICE A DAY active Not Available Not Available No t Available Wegovy 1.7 mg/0.75 mL subcutaneou s pen injector active Not Available Not Available Not Available Wegovy 1 mg/0.5 mL subcutaneou s pen injector active Not Available Not Available Not Available Wegovy 0.5 mg/0.5 mL subcutaneou s pen injector INJECT 1 PEN SUBCUTANE OUSLY ONCE WEEKLY active Not Available Not Available No t Available Zepbound 5 mg/0.5 mL subcutaneou s pen injector active Not Available Not Available Not Available Zepbound 2.5 mg/0.5 mL subcutaneou s pen injector active Not Available Not Available Not Available Vitals Date Recorded Body height Body mass index (BMI) Body weight Provider Name and Address Organization Details Last Updated DateTime 07/05/2024 167.64 cm 40.8 kg/m2 305088.87 g Levar Domingo [facility] 07/05/2024 12:49:17 Date Recorded Body height Body mass index (BMI) Body weight Provider Name and Address Organization Details Last Updated DateTime 07/18/2024 167.64 cm 40.8 kg/m2 839411.87 g Levar Domingo [facility] 07/18/2024 13:52:39 Date Recorded Body height Provider Name an d Address Organization Details Last Updated DateTime 08/24/2024 167.64 cm Pratima De Leon-C [address] [facility] [address], [place], [address], [facility] 08/24/2024 14:24:56 Date Recorded Body height Body mass index (BMI) Body weight Provider Name and Address Organization Details Last Updated DateTime 10/01/2024 167.64 cm 40.8 kg/m2 537587.87 g Levar [facility] 10/01/2024 13:00:13 Date Recorded Body height Body mass index (BMI) Body weight Provider Name and Address Organization Details Last Updated DateTime 11/23/2024 167.64 cm 40.8 kg/m2 408124.87 g Levar [facility] 11/23/2024 14:53:37 Social History None recorded. Functional Status None recorded. Mental Status None recorded. Family History Nothing Reported. Medical History Condition Response Allergies/Hayfever N Coronary Artery Disease N Anxiety/Depression Y Breathing or lung disorders N Emphysema N Nerve Disorders N Thyroid Problems N COPD N Pacemaker N Anemia N Kidney/Bladder Problems N Vascular Disease N Heart Trouble Y Heart Attack ([place]) N Gastrointestinal Disease N Cholesterol N Diabetes N Autoimmune disease N Bleeding Disorder N Orthotics N Arthritis Y Seizures/Epilepsy N Blood Clot N AIDS/HIV N Congestive Heart Failure (CHF) N Acid Reflux (GERD) N Cancer N Stroke N Asthma N Peripheral Vascular Disease N Sleep Apnea Y Hepatitis N Heart Disease N Rheumatoid Arthritis N Arrhythmia N Pulmonary Embolism N Headaches Y Fibromyalgia N Hypertension Y Osteoporosis N Gynecological HistoryNo gynecological history recorded. Obstetrics History GPAL:G 0 P 0 0 0 0 Past Encounters Encounter ID Performer Location Encounter Start Date Encounter Closed Date Diagnosis/Indication Diagnosis SNOMED-CT Code Diagnosis ICD10 Code Diagnosis Note [id number] BRYCE De Leon [address] [place] [address] 12/05/2023 15:09:08 12/26/2023 11:54:37 Impingement syndrome of left shoulder region 1359850948 29384 M75.42 Impingemen t syndrome of right shoulder region 5208319484 29966 M75.41 Trochanter ic bursitis of right hip 9943438533 44196 M70.61 [id number] Mike Rasmussen PA-C [place] [address] [place] [address] 12/19/2023 15:08:12 01/10/2024 15:55:42 Trochanteric bursitis of left hip 3065866879 76872 M70.62 Lateral ep icondylitis of left humerus 9335206014 23070 M77.12 Impingemen t syndrome of right shoulder region 7779773120 12177 M75.41 [id number] Mike Rasmussen PA-C [place] [address] [place] [address] 04/04/2024 12:54:59 05/02/2024 10:13:37 Impingement syndrome of right shoulder region 2188440035 19341 M75.41 Impingemen t syndrome of left shoulder region 7874637930 41268 M75.42 [id number] Mike Rasmussen PA-C [place] [address] [place] [address] 04/18/2024 09:36:20 05/14/2024 13:39:51 Trochanteric bursitis of left hip 3279214782 30563 M70.62 Trochanter ic bursitis of right hip 7095974803 31832 M70.61 Impingemen t syndrome of right shoulder region 8412134728 15010 M75.41 [id number] Mike Rasmussen PA-C [place] [address] [place] [address] 07/05/2024 12:32:21 08/01/2024 10:28:01 Impingement syndrome of right shoulder region 0755930413 68465 M75.41 Impingemen t syndrome of left shoulder region 6882303774 86017 M75.42 [id number] Mike Rasmussen PA-C [place] [address] [place] [address] 07/18/2024 13:34:36 08/14/2024 07:54:13 Trochanteric bursitis of right hip [id number] M70.61 Trochanter ic bursitis of left hip [id number] M70.62 [id number] [facility] [address] [place] [address] 08/24/2024 14:11:37 09/05/2024 14:54:01 Impingement syndrome of left shoulder region [id number] [id number] M75.42 Impingemen t syndrome of right shoulder region [id number] 31624 M75.41 [id number] [facility] [address] [place] [address] 10/01/2024 12:52:56 10/17/2024 15:49:37 Trochanteric bursitis of left hip [id number] M70.62 Trochanter ic bursitis of right hip [id number] 12469 M70.61 [id number] [facility] [address] [place] [address] 11/23/2024 14:50:04 11/23/2024 15:05:39 Impingement syndrome of right shoulder region [id number] M75.41 Impingemen t syndrome of left shoulder region [id number] [id number] M75.42 Health Concerns Section Related Observation LastModified by Organization Detai ls LastModified Time None Recorded Concern Status LastModified by Organization Details LastModified Time None Recorded Advance Directives Directive None Recorded Payers Encounter Date Sequence Insurance Name Policy Number Policy Lee Covered Member ID Lee Member ID Guarantor Name 07/05/2024 1 [facility] - COMMONHEALTH (MEDICAID HMO) [id number] Sonya Sanders [id number] Sonya Corey 07/18/2024 1 [facility]ALTH[facility] - COMMONHEALTH (MEDICAID HMO) [id number] Sonya Sanders [id number] Sonya Corey 08/24/2024 1 [facility] HEALTH[facility] - COMMONHEALTH (MEDICAID HMO) [id number] Sonya Sanders [id number] Sonya Corey 10/01/2024 1 [facility] [id number] Sonya Sanders [id number] Sonya Corey 11/23/2024 1 [facility] (MEDICAID HMO) [id number] Sonya Sanders [id number] Sonya Corey OBGyn Episode No OBEpisode recorded.
== END 2024-11-30 13:15 | disposition home or self-care (01) ==
LOC: HO.MAMMO 13:14
PROVIDERS: PCP Pediatrics; Visit Provider Hospitalist
DX: M81.8 Other osteoporosis without current pathological fracture (principal); Z79.52 Long term (current) use of systemic steroids
CPT/HCPCS: 77080

== ENCOUNTER → 2024-11-30 13:30 | Outpatient (BNV) | payer OTHER, SELFPAY | PROVIDERS: PCP Pediatrics; Visit Provider Radiology Diagnostic Radiology | DX: E28.39 Other primary ovarian failure (principal) | CPT/HCPCS: 77080 ==

== ENCOUNTER 2024-12-26 15:55 | Outpatient (REF) | payer OTHER, SELFPAY ==
--- NOTE | ~2024-12-26 | CT_ITS ---
CLINICAL HISTORY: R07.81 - Pleurodynia CT chest without contrast Comparison: None Findings: The heart is normal size. Omoaiosi-pu-yjxojg coronary artery calcifications. The visualized thyroid and mediastinum are unremarkable. Mild scarring/atelectasis in the medial aspect of the right lower lobe. Mild left basilar bandlike atelectasis/scarring. Otherwise clear lungs. No pleural effusion or pneumothorax. No pleural plaques. Cholecystectomy. 16 mm thin rim calcified round region adjacent to the middle portion of the splenic arterial on series 5, image 121 may be due to a splenic artery aneurysm. Finding could be further evaluated with a CTA. Mild cortical thickening along portion of 1 of the left-sided ribs is likely reactive/sequela of old injury. No acute fracture. IMPRESSION: Lbnjqkdz-py-tnavfp coronary artery calcifications. 16 mm thin rim calcified round region adjacent to the middle portion of the splenic arterial may be due to a splenic artery aneurysm. Finding could be further evaluated with a CTA. This document has been electronically signed by: Catalina Vega MD on 12/27/2024 11:37:45
--- OUTSIDE RECORDS SUMMARY | 2024-12-26 15:57 | XMS_ITS | Clinical Summary ---
Author Organization [employer] [facility] it Address [address] [place] [address] Care Team Providers Care Lumber Tying Machine Operator Name Role Phone Pina Lopez MD Primary Care Provider [phone] Surgical History Surgery Date Site/Laterality Comments CARPAL TUNNEL RELEASE 2008 PROCEDURE: HISTORICAL CARPAL TUNNEL REL CHOLECYSTECTOMY PROCEDURE: HISTORICAL CHOLECYSTECTOMY SECTION PROCEDURE: HISTORICAL DELIVERY OTHER SURGICAL HISTORY PROCEDURE: HISTORY OTHER; COMMENT: breast surgery COLONOSCOPY PROCEDURE: HISTORICAL COLONOSCOPY ESOPHAGOGASTRODUODENOSCOPY PROCEDURE: [place] ESOPHAGOGASTRODUODENOSCOPY TRANSORAL DIAGNOSTIC Medical History Medical History [...] obesity with BMI of 4 5.0-49.9, adult ([facility] V24, [facility] V28) 05/02/2017 DX:Morbid obesity wit h BMI of 45.0-49.9, adult ([facility]) Allergic rhinitis 05/17/2017 DX:Allergic rh initis CTS (carpal tunnel syndrome) 12/05/2012 DX: CTS (carpal tunnel syndrome); COMMENT: Dr hannah Osteoarthritis 12/05/2012 DX:Osteoarthriti s; COMMENT: knees, spine Asthma-COPD overlap syndrome ([facility] V24, [facility] V28) 08/31/2017 DX:Asthma-COPD overlap syndr ome (HCC) [...] age to complete this topic Care Teams Lumber Tying Machine Operator Relationship Specialty Start Date End Date Pina Lopez MD [address] [facility] [place] PCP - General Internal Medicine 06/21/17
--- OUTSIDE RECORDS SUMMARY | 2024-12-26 15:57 | XMS_ITS | Clinical Summary ---
Author Organization [facility] Address [address] [address] Phone Care Team Providers Care Button Maker Name Role Phone Pina Lopez MD Primary Care Provider [phone] Allergies Active Allergy Reactions Criticality Noted Date [...] 2 (two) times a day Active Tiotropium [place] Monohydrate (Spiriva Respimat) 2.5 MCG/ACT aerosol solution [...] (two) times a day Active aspirin (ST DAÍRO) 81 MG EC tablet Take 1 tablet [...] by mouth every night 4 Active spironolactone (ALDACTONE) 25 MG tablet TAKE 2 TABLETS BY MOUTH 1 TIME EACH DAY. 180 tablet 5 Active Active Problems Problem Noted Date Diagnosed [...] Obstructive sleep apnea syndrome 06/03/2021 Overview (06/03/2021): [facility] Home Polysomnogram: Date 11/10/2017; AHI 9, Unclassified apneas 1; Obstructive apneas 29; Central apneas 10; Mixed apneas 0; hypopneas 63; average oxygen saturation 93% (lowest 88% without saturations <88% for 5% or more of study) [facility] Home Sleep Apnea Test: Date 01/26/2019; [...] 11/25/2024 Refill [facility] [address] [facility] [address] [place] [address] Carter Samayoa MD from Last 3 Months [...] Office Visit [facility] [address] [facility] [address] [place] [address] Carter Samayoa MD [address] [address] Health Maintenance Due Date Last Done Comments [...] Insurance [facility] Medicaid [facility] Medicaid Care Teams Button Maker Relationship Specialty Start Date End Date Pina Lopez MD [address] [place] [address] PCP - General Internal Medicine 12/28/23
== END 2024-12-26 15:56 | disposition home or self-care (01) ==
LOC: HO.CT 15:55
PROVIDERS: Visit Provider Hospitalist
DX: R07.81 Pleurodynia (principal)
CPT/HCPCS: 71250

== ENCOUNTER → 2024-12-26 15:57 | Outpatient (BNV) | payer OTHER, SELFPAY | PROVIDERS: Visit Provider Radiology Diagnostic Radiology | DX: I25.84 Coronary atherosclerosis due to calcified coronary lesion (principal) | CPT/HCPCS: 71250 ==

== ENCOUNTER 2025-01-18 14:56 | Outpatient (AMB) | payer OTHER, SELFPAY ==
--- OUTSIDE RECORDS SUMMARY | 2025-01-18 14:59 | XMS_ITS | Clinical Summary ---
Author Organization [facility] Address [address] [place] [address] Phone Care Team Providers Care Upper Leather Sorter Name Role Phone Pina Lopez MD Primary Care Provider [phone] Allergies Active Allergy Reactions Criticality Noted Date [...] (two) times a day Active Tiotropium [place] Monohydrate (Spiriva Respimat) 2.5 MCG/ACT aerosol solution [...] Obstructive sleep apnea syndrome 06/03/2021 Overview (06/03/2021): [facility] Home Polysomnogram: Date 11/10/2017; AHI 9, Unclassified apneas 1; Obstructive apneas 29; Central apneas 10; Mixed apneas 0; hypopneas 63; average oxygen saturation 93% (lowest 88% without saturations <88% for 5% or more of study) [facility] Home Sleep Apnea Test: Date 01/26/2019; [...] 11/25/2024 Refill [facility] [address] [facility] [address] [place] [address] Carter Samayoa MD from Last 3 Months [...] Office Visit [facility] [address] [facility] [address] [place] [address] Carter Samayoa MD [address] [address] Health Maintenance Due Date Last Done Comments [...] Health Medicaid [facility] [facility] Medicaid Care Teams Upper Leather Sorter Relationship Specialty Start Date End Date Pina Lopez MD [address] [place] [address] PCP - General Internal Medicine 12/28/23
--- NOTE | 2025-01-18 15:00 | A.OFFVIS_ITS ---
Vital Signs 01/18/25 15:01 Height 5 ft 6 in Weight 218 lb 4.122 oz BMI 35.2 BP 140/70 H Blood Pressure Location Lt brachial Position Sitting Pulse 89 Pulse Source Pulse Oximeter Pulse Oximetry (%) 95 Oxygen Delivery Method Nasal Cannula Intake Visit Reasons: COPD Allergies topiramate [From Topamax] Allergy (Mild, Verified 01/18/25 15:04) Tingling in mouth and lips HPI Comments Details: The patientis a 59 y/o woman with underlying chronic respiratory failure on oxygen in addition to COPD, VIKAS on CPAP. She is oxygen dependent. She does have dyspnea on exertion. Moderate in amount. The oxygen has been helpful. However, it is hard for her to carry the oxygen tanks. She is concerned about the finding on the CT scan of the chest demonstrating 1.7 cm splenic artery aneurysm. Therefore, I will refer her to vascular surgeon. Overall, the patient is doing well from a respiratory standpoint. She understand that she does have a moderate risk for perioperative pulmonary complications. I did review her sleep study from January 2018 demonstrating moderate sleep apnea with significant hypoxia. I will send a new prescription for CPAP to the [facility]. When she Star CPAP for we can do an overnight oximetry to see if she does need oxygen with her CPAP. She continues using her oxygen. She is still having issues with a battery operated portable oxygen concentrator. She has a hard time caring her oxygen tanks because of her significant arthritis and other comorbidities. The portable oxygen concentrator will provide better portability outside of her home. 07/18/2023 the patient is here for a pulmonary follow-up visit. Overall she is been doing well on Xolair and also the allergy shots. Although, she is been h aving significant headaches. She attributes this to the Xolair. She had been pretreating with Tylenol and Benadryl in in the past that did help with the headaches. Therefore, will provide with the Tylenol she already has a Benadryl so she can continue to do that pre medication treatment to minimize the adverse effects. Her respiratory therapy has been able to stabilize her respiratory symptoms significantly. She is still using her oxygen as prescribed with good effect. she has been started to have symptoms of sinusitis. She is concerns that is developing to full flush sinusitis. Will make sure to provide him medications to have case her symptoms worsen. In the meantime the patient has been having daytime drowsiness. she does use oxygen and also has a history of sleep apnea in the past. Her [place] score is elevated 10/24. At this point will request that the patient undergo a sleep study. Since she is on oxygen she will require an in-lab study. 10/17/2023 the patient is here for pulmonary follow-up visit. She has been very sickly the last 2 weeks. The patient has had positive sick contacts in the home as her grandchild was sick and the rest of the family became very sick. Ultimately her symptoms worsened significantly activating her asthma. She was having significant chest tightness and wheezing. Her COVID testing was negative. The child that initially was sick was also tested for RSV and flu and COVID and all negative. The patient did call the office and we did start her on doxycycline and also a course of prednisone. The patient has been tapering down now 30 mg of prednisone. She does feel better but still having significant nasal congestion nasal obstruction sinus pressure. Moderate severity. Hoarseness. Also complains of a cough. Also having chest tightness and wheezing still. She is using her nebulizer. She is also using her oxygen. She has not had any recent x-rays imaging studies. The patient may have a component of sinusitis this point and will treat her accordingly. In addition to that she continues to have significant daytime drowsiness. She did have a in-lab sleep study that was personally reviewed. The patient does have significant sleep apnea and was recommended that she have a CPAP titration study. We did requested but was initially denied by the insurance. We are still waiting approval at this time. The patient does have an elevated [place] score of 12/24. The patient has significant risk factors and a positive sleep study with evidence of respiratory failure. Therefore a titration study would be most important to be able to provide her with the Appropriate PAP therapy. Also, very importantly the patient has been having issues with headaches. She does have a blood pressure meter at home and she did bring some of the readings which were very alarming. The highest blood pressure was systolic blood pressure about 210 and diastolic pressure also elevated overall 108. the patient has a prescription for torsemide but she stopped taking it in view of the fact that she was urinating a lot while being on the prednisone. In addition to that she has a prescription for verapamil but does not always take it either. At this point the patient understands that broad pressure-like that could result in stroke and can result in serious end-organ damage. The patient has been reluctant to go to the ER specially because of all the illnesses that she has been exposed to already in the end since that will be in the ER. I did give her a prescription for small dose of hydralazine that she can use as needed while she weighs see her primary care doctor and region manager. 01/16/2024 the patient is here for pulmonary follow-up visit. She continues to have significant daytime drowsiness. Her [place] score is elevated 11/24. She did have a titration sleep study. We did review. Appearance that she did very well on CPAP of 9 cm. The patient needs to start CPAP at this time. She has significantly elevated blood pressures with systolic in the 200s. She has had hard to control blood pressure and is likely from the untreated sleep apnea. She also has significant headaches and migraines the the untreated sleep apnea is likely contributing to. Therefore, will request a CPAP of 9 cm soon as possible. She also is on oxygen so therefore will add her oxygen supplementation CPAP. Hopefully will help her blood pressure. She continues use respiratory medicine. She still has a cough. The cough is persistent. Moderate severity. Since requesting cough medication. She continues with respiratory medication. For some reason the Daliresp has not been provided in the last 2 weeks she is already noticed worsening respiratory symptoms. Will go ahead and request Daliresp at the pharmacy again. She has been on it for many years and therefore is therapy that she needs to continue. 04/12/2024 the patient is here for a pulmonary follow-up visit. Overall the patient has been doing fair. She was done in [place] for about a month. There she got sick with a respiratory illness. She did have some antibiotics and she did taken. She also had a little bit of prednisone which she took that as well. Although she is still not better. She feels have significant hoarseness and cough. Productive cough at times. Moderate severity. She has been using all her respiratory medications. Currently she is doing a little better from how she was before. In addition to that the patient is still struggling with her sleep. She has an elevated [place] score of 10/24. We did request a CPAP for her during the last visit but she has yet to receive it. We did call the [facility] we did rectify that they received all the paperwork to make sure that she gets her equipment. Once she situated she is going to start using the CPAP with the oxygen. Will follow-up in about 3 months and she can bring her CPAP with her so we can assess her response to therapy. Her last chest x-ray was back in 11/02/2023 she did have some areas of opacities and atelectasis. Will plan to repeat her x-ray when she returns in 3 months. If she continues to be symptomatic she can always call so we can get the x-ray on sooner. If the x-ray continues to be abnormal will consider getting a CT scan of the chest. 07/10/2024 the patient is here for a pulmonary follow-up visit. She has been sick now for about a week. Started developing sore throat chest congestion and cough. She went to her primary care doctor there she had COVID and RSV testing. She is waiting for the RSV with the COVID was negative. She also had a strep throat which was negative. The patient also had a chest x-ray which per report was told that it was okay. She was placed on Augmentin and a short course of prednisone. She is partially better. She has significant hoarseness. She has been using her respiratory therapy. She continues have significant daytime drowsiness with an elevated [place] score of 11/24. She finally set up for CPAP. She is going to be picking it up soon. I did recommend that she wait until she is better to start using the PAP therapy. She will continue with the prednisone taper and also will go ahead and treat her with Augmentin and doxycycline to complete a 10 day course. 09/07/2024 the patient is here for a pulmonary follow-up visit. Overall she is doing well. She did start the new CPAP therapy. The therapy has been affecting beneficial. She does use hormone 4 hours. She does better with a fullface mask. I am requesting axis to airway to be able to download the machine adjusted accordingly. The patient also continues with respiratory therapy with good effect. Her only complaint is left-sided back and side discomfort. She did have a CT scan of the abdomen done because of that. They were looking for kidney stones so there kidneys were okay. She does have a splenic aneurysm that is calcified and she has had that documented for many years. This has been stable. When she does have significant disease of her vertebral bodies. She has also had MRIs demonstrating significant disc bulging around the L3-L4 and likely has some radiculopathy to that area that is causing the left-sided discomfort. She is working with pain management. She has been also on chronic steroids and has received significant amount of cortical steroids via injections. Therefore will go ahead and request a bone density test. Patient also has been having increasing shortness of breath. Will have her get an echo and a PFT and then will follow-up in 3-4 months. If the patient has any worsening issues she can always call for an earlier assessment. 11/06/2024 the patient is here for pulmonary follow-up visit. Overall the patient has been doing okay. Recently she started developing worsening cough and some laryngitis. She is concerned she is getting sick again. But otherwise she has been doing okay. She does have her bone density test scheduled. She still has some difficulty breathing. Dyspnea on exertion. [id number] severity. The oxygen does help. She did have a chest x-ray that was planned was nondiagnostic. Her PFTs are pending. Based on her ongoing dyspnea symptoms and cough will go ahead and request a CT scan of the chest to better address the area. The patient continues uses CPAP. CPAP therapy has been affecting beneficial. She does use it for more than 4 hours a night. Although there mask is uncomfortable. She is wondering if she can switch over to the F 40 mask. I believe that this will be a better fit for her as well. Will request that her [employer] company, [employer] was switch her mask to a enough 40. She does have an unopened box of supplies. Will see if [facility] can exchange to the F 40 mask at this time. 01/18/2025 the patient is here for pulmonary follow-up visit. Overall the patient has been doing okay. She has been losing weight on a GLP 1 inhibitor. She continues on the CPAP therapy in the CPAP therapy has been affecting beneficial. She does use it for 4 hours a night. She continues use her respiratory therapy with good effect. She feels like she is getting the be developing a sinus infection soon. in view of her significant prednisone use we did send her for a bone density test. She understands that she does have osteopenia and therefore she has very careful with steroids or any medications 2nd in the bone growth or cause bone Destruction. She is following closely with Nephrology for her blood pressure issues and seems to be doing a little better. She recently did have a CT scan of the chest that was personally by me. Again demonstrating the splenic artery aneurysm. Was recommended that she undergo a dedicated CT scan of the abdomen to better visualize up with contrast. Therefore will go ahead and order that. She will have to follow-up with vascular surgery after that. [facility] Medical History longterm (current) use of systemic steroids Lower extremity edema Asthma Steroid dependent Hematuria Chronic respiratory failure COPD exacerbation Sinusitis VIKAS (obstructive sleep apnea) Asthma-COPD overlap syndrome Surgical History Carpal tunnel syndrome Family History Sister Asthma Social History Patient Tobacco Use Status: Never used Tobacco Review of Systems Const Reports daytime sleepiness, Reports difficulty sleeping, Reports fatigue, Reports headache(s), Reports malaise, Denies night sweats and Reports stops breathing during sleep Eyes Reports no additional complaints, Denies eye discharge, Denies irritation and Denies photophobia ENT Denies change in voice, Reports headache(s), Denies lip swelling, Denies mouth pain, Reports nasal congestion, Reports nasal discharge, Reports sinus pain, Reports sinus pressure and Denies tongue swelling Card Reports leg edema and Reports dyspnea on exertion Resp Reports cough, Reports pain with cough, Reports dyspnea on exertion and Denies wheezing GI Reports abdominal pain, Reports dyspepsia and Reports heartburn Denies dysuria Musc Reports as per HPI, Reports back pain, Reports arthralgias and Reports limited range of motion Skin/Breast Reports change in pigmentation Neuro Denies Neuro-related abnormal movements and Reports headache(s) Psych Denies no additional complaints Endo Reports fatigue Arsh/Lymph Denies easy bleeding and Denies lymphadenopathy Aller/Immun Denies lip swelling, Denies tongue swelling and Denies wheezing Physical Exam Vital Signs: Last Vital Signs Pulse 89 01/18/25 15:01 BP 140/70 H 01/18/25 15:01 Pulse Ox 95 01/18/25 15:01 Oxygen Delivery Method Nasal Cannula 01/18/25 15:01 BMI result Body Mass Index 35.2 Const General: alert Eyes Direct Ophthalmoscopy: No photophobia Neck Neck: Yes normal visual inspection, Yes full ROM and Yes no lymphadenopathy Chest Chest palpation & inspection: normal inspection of the chest Resp Effort & Inspection: normal respiratory effort, able to speak in complete sentences and no audible wheezes Auscultation: no crackles, no rales, no rhonchi, no wheezes and diminished lung sounds Cardio Rate: regular rate Rhythm: regular rhythm Heart sounds: S1 normal heart sound present and S2 normal heart sound present GI Palpation (GI): Soft to palpation and nontender Auscultation: normal bowel sounds Skin General skin exam: no rashes or lesions noted and other (vitiligo) Extrem General: No clubbing, No cyanosis and Yes edema Assessment & Plan Assessment & Plan (1) Splenic artery aneurysm: Code(s): I72.8 - Aneurysm of other specified arteries Category: Medical (2) Chronic respiratory failure: Code(s): J96.10 - Chronic respiratory failure, unspecified whether with hypoxia or hypercapnia Category: Medical Qualifiers: Respiratory failure complication: hypoxia Qualified Code(s): J96.11 - Chronic respiratory failure with hypoxia (3) VIKAS (obstructive sleep apnea): Code(s): G47.33 - Obstructive sleep apnea (adult) (pediatric) Category: Medical (4) Asthma-COPD overlap syndrome: Code(s): J44.9 - Chronic obstructive pulmonary disease, unspecified Category: Medical (5) Sinusitis: Code(s): J32.9 - Chronic sinusitis, unspecified Category: Medical Qualifiers: Sinusitis location: unspecified location Chronicity: acute Recurrence: recurrent Qualified Code(s): J01.91 - Acute recurrent sinusitis, unspecified (6) Steroid dependent: Code(s): F19.20 - Other psychoactive substance dependence, uncomplicated Category: Medical (7) Asthma: Code(s): J45.909 - Unspecified asthma, uncomplicated Category: Medical Qualifiers: Asthma severity: severe Asthma persistence: persistent Asthma complication type: uncomplicated Qualified Code(s): J45.50 - Severe persistent asthma, uncomplicated (8) Chest pain: Code(s): R07.9 - Chest pain, unspecified Category: Medical Qualifiers: Chest pain type: pleurodynia Qualified Code(s): R07.81 - Pleurodynia Plan conitnue APAP 9cm with oxygen bone density while on chronic steroids-+osteopenia Xolair and allergy shots [id number], pretreat with Benadryl and tylenol continue Breztri with spacer Continue Daliresp continue DuoNeb continue oxygen supplementation. POC for portability reflux diet PPI CT abdomen to assess splenic artery aneurysm ECHO-good F/U 3-4 months Orders: Orders CT angio abdomen 01/18/25 I72.8 - Aneurysm of other specified arteries Basic Metabolic Panel 01/18/25 I72.8 - Aneurysm of other specified arteries Medications: New amoxicillin-pot clavulanate 875-125 mg 1 tab PO BID 20 tabs 0RF 10 days Refilled codeine-guaifenesin 10-100 mg/5 mL 10 mL PO Q6H PRN 300 mL 0RF cough 10 days prednisone PO daily; Take 6 tabs daily x 3 days, then 5 tabs x 3 days, then 4 tabs x 3 days, then 3 tabs x 3 days, then 2 tabs daily x 3 days, then 1 tab x 3 days to complete. 63 tabs 0RF 18 days Coding Level of Care Code Est Pt Level 5 (75467) Complex EM visit Add On G2211 Diagnoses Splenic artery aneurysm I72.8 Chronic respiratory failure with hypoxia J96.11 Respiratory failure complication: hypoxia VIKAS (obstructive sleep apnea) G47.33 Asthma-COPD overlap syndrome J44.9 Acute recurrent sinusitis, unspecified location J01.91 Sinusitis location: unspecified location Chronicity: acute Recurrence: recurrent Steroid dependent F19.20 Severe persistent asthma without complication J45.50 Asthma severity: severe Asthma persistence: persistent Asthma complication type: uncomplicated Pleurodynia R07.81 Chest pain type: pleurodynia Time Spent (min) 50
[2025-01-18 15:01] VITALS: BP 140/70; PULSE 89; O2SAT 95; BMI 35.2
== END 2025-01-18 15:34 | disposition home or self-care (01) ==
LOC: HO.HPS 14:57
PROVIDERS: PCP Pediatrics; Visit Provider Hospitalist
DX: I72.8 Aneurysm of other specified arteries (principal); J96.11 Chronic respiratory failure with hypoxia; G47.33 Obstructive sleep apnea (adult) (pediatric); J44.9 Chronic obstructive pulmonary disease, unspecified; J01.91 Acute recurrent sinusitis, unspecified; F19.20 Other psychoactive substance dependence, uncomplicated; J45.50 Severe persistent asthma, uncomplicated; R07.81 Pleurodynia
CPT/HCPCS: 99215; G2211

== ENCOUNTER → 2025-01-18 14:56 | Outpatient (BNVA) | payer OTHER, SELFPAY | PROVIDERS: PCP Pediatrics; Visit Provider Hospitalist | DX: I72.8 Aneurysm of other specified arteries (principal); J96.11 Chronic respiratory failure with hypoxia; G47.33 Obstructive sleep apnea (adult) (pediatric); J44.9 Chronic obstructive pulmonary disease, unspecified; J01.91 Acute recurrent sinusitis, unspecified; F19.20 Other psychoactive substance dependence, uncomplicated; J45.50 Severe persistent asthma, uncomplicated; R07.81 Pleurodynia; Z99.81 Dependence on supplemental oxygen; Z99.89 Dependence on other enabling machines and devices; Z79.52 Long term (current) use of systemic steroids | CPT/HCPCS: 99212 ==

== ENCOUNTER 2025-03-19 14:53 | Outpatient (AMB) | payer OTHER, SELFPAY ==
[2025-03-19 15:18] VITALS: BP 136/62; PULSE 72; O2SAT 94; BMI 34.5
--- NOTE | 2025-03-19 15:18 | MHC.OFFVIS ---
Vital Signs 03/19/25 15:18 Height 5 ft 6 in Weight 213 lb 13.574 oz BMI 34.5 BP 136/62 Blood Pressure Location Lt brachial Position Sitting Pulse 72 Pulse Source Pulse Oximeter Pulse Oximetry (%) 94 Oxygen Delivery Method Room Air Intake Visit Reasons: COPD Accompanied by: Self / Same As Patient Allergies topiramate (From Topamax) Allergy (Mild, Verified 03/19/25 15:21) Tingling in mouth and lips HPI Comments Details: The patientis a 59 y/o woman with underlying chronic respiratory failure on oxygen in addition to COPD, VIKAS on CPAP. She is oxygen dependent. She does have dyspnea on exertion. Moderate in amount. The oxygen has been helpful. However, it is hard for her to carry the oxygen tanks. She is concerned about the finding on the CT scan of the chest demonstrating 1.7 cm splenic artery aneurysm. Therefore, I will refer her to vascular surgeon. Overall, the patient is doing well from a respiratory standpoint. She understand that she does have a moderate risk for perioperative pulmonary complications. I did review her sleep study from January 2018 demonstrating moderate sleep apnea with significant hypoxia. I will send a new prescription for CPAP to the [facility]. When she Star CPAP for we can do an overnight oximetry to see if she does need oxygen with her CPAP. She continues using her oxygen. She is still having issues with a battery operated portable oxygen concentrator. She has a hard time caring her oxygen tanks because of her significant arthritis and other comorbidities. The portable oxygen concentrator will provide better portability outside of her home. 07/18/2023 the patient is here for a pulmonary follow-up visit. Overall she is been doing well on Xolair and also the allergy shots. Although, she is been having significant headaches. She attributes this to the Xolair. She had been pretreating with Tylenol and Benadryl in in the past that did help with the headaches. Therefore, will provide with the Tylenol she already has a Benadryl so she can continue to do that pre medication treatment to minimize the adverse effects. Her respiratory therapy has been able to stabilize her respiratory symptoms significantly. She is still using her oxygen as prescribed with good effect. she has been started to have symptoms of sinusitis. She is concerns that is developing to full flush sinusitis. Will make sure to provide him medications to have case her symptoms worsen. In the meantime the patient has been having daytime drowsiness. she does use oxygen and also has a history of sleep apnea in the past. Her [place] score is elevated 10/24. At this point will request that the patient undergo a sleep study. Since she is on oxygen she will require an in-lab study. 10/17/2023 the patient is here for pulmonary follow-up visit. She has been very sickly the last 2 weeks. The patient has had positive sick contacts in the home as her grandchild was sick and the rest of the family became very sick. Ultimately her symptoms worsened significantly activating her asthma. She was having significant chest tightness and wheezing. Her COVID testing was negative. The child that initially was sick was also tested for RSV and flu and COVID and all negative. The patient did call the office and we did start her on doxycycline and also a course of prednisone. The patient has been tapering down now 30 mg of prednisone. She does feel better but still having significant nasal congestion nasal obstruction sinus pressure. Moderate severity. Hoarseness. Also complains of a cough. Also having chest tightness and wheezing still. She is using her nebulizer. She is also using her oxygen. She has not had any recent x-rays imaging studies. The patient may have a component of sinusitis this point and will treat her accordingly. In addition to that she continues to have significant daytime drowsiness. She did have a in-lab sleep study that was personally reviewed. The patient does have significant sleep apnea and was recommended that she have a CPAP titration study. We did requested but was initially denied by the insurance. We are still waiting approval at this time. The patient does have an elevated [place] score of 12/24. The patient has significant risk factors and a positive sleep study with evidence of respiratory failure. Therefore a titration study would be most important to be able to provide her with the Appropriate PAP therapy. Also, very importantly the patient has been having issues with headaches. She does have a blood pressure meter at home and she did bring some of the readings which were very alarming. The highest blood pressure was systolic blood pressure about 210 and diastolic pressure also elevated overall 108. the patient has a prescription for torsemide but she stopped taking it in view of the fact that she was urinating a lot while being on the prednisone. In addition to that she has a prescription for verapamil but does not always take it either. At this point the patient understands that broad pressure-like that could result in stroke and can result in serious end-organ damage. The patient has been reluctant to go to the ER specially because of all the illnesses that she has been exposed to already in the end since that will be in the ER. I did give her a prescription for small dose of hydralazine that she can use as needed while she weighs see her primary care doctor and customs entry writer. 01/16/2024 the patient is here for pulmonary follow-up visit. She continues to have significant daytime drowsiness. Her [place] score is elevated 11/24. She did have a titration sleep study. We did review. Appearance that she did very well on CPAP of 9 cm. The patient needs to start CPAP at this time. She has significantly elevated blood pressures with systolic in the 200s. She has had hard to control blood pressure and is likely from the untreated sleep apnea. She also has significant headaches and migraines the the untreated sleep apnea is likely contributing to. Therefore, will request a CPAP of 9 cm soon as possible. She also is on oxygen so therefore will add her oxygen supplementation CPAP. Hopefully will help her blood pressure. She continues use respiratory medicine. She still has a cough. The cough is persistent. Moderate severity. Since requesting cough medication. She continues with respiratory medication. For some reason the Daliresp has not been provided in the last 2 weeks she is already noticed worsening respiratory symptoms. Will go ahead and request Daliresp at the pharmacy again. She has been on it for many years and therefore is therapy that she needs to continue. 04/12/2024 the patient is here for a pulmonary follow-up visit. Overall the patient has been doing fair. She was done in [place] for about a month. There she got sick with a respiratory illness. She did have some antibiotics and she did taken. She also had a little bit of prednisone which she took that as well. Although she is still not better. She feels have significant hoarseness and cough. Productive cough at times. Moderate severity. She has been using all her respiratory medications. Currently she is doing a little better from how she was before. In addition to that the patient is still struggling with her sleep. She has an elevated [place] score of 10/24. We did request a CPAP for her during the last visit but she has yet to receive it. We did call the [facility] we did rectify that they received all the paperwork to make sure that she gets her equipment. Once she situated she is going to start using the CPAP with the oxygen. Will follow-up in about 3 months and she can bring her CPAP with her so we can assess her response to therapy. Her last chest x-ray was back in 11/02/2023 she did have some areas of opacities and atelectasis. Will plan to repeat her x-ray when she returns in 3 months. If she continues to be symptomatic she can always call so we can get the x-ray on sooner. If the x-ray continues to be abnormal will consider getting a CT scan of the chest. 07/10/2024 the patient is here for a pulmonary follow-up visit. She has been sick now for about a week. Started developing sore throat chest congestion and cough. She went to her primary care doctor there she had COVID and RSV testing. She is waiting for the RSV with the COVID was negative. She also had a strep throat which was negative. The patient also had a chest x-ray which per report was told that it was okay. She was placed on Augmentin and a short course of prednisone. She is partially better. She has significant hoarseness. She has been using her respiratory therapy. She continues have significant daytime drowsiness with an elevated [place] score of 11/24. She finally set up for CPAP. She is going to be picking it up soon. I did recommend that she wait until she is better to start using the PAP therapy. She will continue with the prednisone taper and also will go ahead and treat her with Augmentin and doxycycline to complete a 10 day course. 09/07/2024 the patient is here for a pulmonary follow-up visit. Overall she is doing well. She did start the new CPAP therapy. The therapy has been affecting beneficial. She does use hormone 4 hours. She does better with a fullface mask. I am requesting axis to airway to be able to download the machine adjusted accordingly. The patient also continues with respiratory therapy with good effect. Her only complaint is left-sided back and side discomfort. She did have a CT scan of the abdomen done because of that. They were looking for kidney stones so there kidneys were okay. She does have a splenic aneurysm that is calcified and she has had that documented for many years. This has been stable. When she does have significant disease of her vertebral bodies. She has also had MRIs demonstrating significant disc bulging around the L3-L4 and likely has some radiculopathy to that area that is causing the left-sided discomfort. She is working with pain management. She has been also on chronic steroids and has received significant amount of cortical steroids via injections. Therefore will go ahead and request a bone density test. Patient also has been having increasing shortness of breath. Will have her get an echo and a PFT and then will follow-up in 3-4 months. If the patient has any worsening issues she can always call for an earlier assessment. 11/06/2024 the patient is here for pulmonary follow-up visit. Overall the patient has been doing okay. Recently she started developing worsening cough and some laryngitis. She is concerned she is getting sick again. But otherwise she has been doing okay. She does have her bone density test scheduled. She still has some difficulty breathing. Dyspnea on exertion. Sycy-ao-jxjyadwn severity. The oxygen does help. She did have a chest x-ray that was planned was nondiagnostic. Her PFTs are pending. Based on her ongoing dyspnea symptoms and cough will go ahead and request a CT scan of the chest to better address the area. The patient continues uses CPAP. CPAP therapy has been affecting beneficial. She does use it for more than 4 hours a night. Although there mask is uncomfortable. She is wondering if she can switch over to the F 40 mask. I believe that this will be a better fit for her as well. Will request that her [employer] company, [employer]azar[employer] was switch her mask to a enough 40. She does have an unopened box of supplies. Will see if [employer] can exchange to the F 40 mask at this time. 01/18/2025 the patient is here for pulmonary follow-up visit. Overall the patient has been doing okay. She has been losing weight on a GLP 1 inhibitor. She continues on the CPAP therapy in the CPAP therapy has been affecting beneficial. She does use it for 4 hours a night. She continues use her respiratory therapy with good effect. She feels like she is getting the be developing a sinus infection soon. in view of her significant prednisone use we did send her for a bone density test. She understands that she does have osteopenia and therefore she has very careful with steroids or any medications 2nd in the bone growth or cause bone Destruction. She is following closely with Nephrology for her blood pressure issues and seems to be doing a little better. She recently did have a CT scan of the chest that was personally by me. Again demonstrating the splenic artery aneurysm. Was recommended that she undergo a dedicated CT scan of the abdomen to better visualize up with contrast. Therefore will go ahead and order that. She will have to follow-up with vascular surgery after that. 03/19/2025 the patient is here for a pulmonary follow-up visit. The patient overall has been complaining of left ear discomfort pain and itchiness. She is also draining some fluid from it. Denies going into a pool or Lloyd or lb. The patient also has been noticing some raspiness of her voice. She feels like she is getting sick. She has been using the CPAP although the head gear has been bothering her zoroastrian area. We did request a different mask, F40 for her [employer] company but she has not received that. I did have 1 available so I did provide it for her and she did try it and it did not bother her the same area. Therefore she will use it for now. Sometimes the mask bothers her skin specially with her vitiligo but she will monitor closely with the new mask. Meantime she continues her respiratory therapy. She continues use the oxygen with good effect. Again CPAP has been affecting beneficial she does use it for more than 4 hours a night. She does have a CAT scan and a PFT pending for the end of the month and will see her sometime in the fall to review those results. 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 Lower extremity edema Asthma Steroid dependent Hematuria Chronic respiratory failure COPD exacerbation Sinusitis VIKAS (obstructive sleep apnea) Asthma-COPD overlap syndrome Surgical History Carpal tunnel syndrome Family History Sister Asthma Social History Patient Tobacco Use Status: Never used Tobacco Review of Systems Const Reports daytime sleepiness, Reports difficulty sleeping, Reports fatigue, Reports headache(s), Reports malaise, Denies night sweats and Reports stops breathing during sleep Eyes Reports no additional complaints, Denies eye discharge, Denies irritation and Denies photophobia ENT Denies change in voice, Reports ear discharge, Reports otalgia, Reports headache(s), Denies lip swelling, Denies mouth pain, Reports nasal congestion, Reports nasal discharge and Denies tongue swelling Card Reports leg edema and Reports dyspnea on exertion Resp Reports cough, Reports pain with cough, Reports dyspnea on exertion and Denies wheezing GI Reports abdominal pain, Reports dyspepsia and Reports heartburn Denies dysuria Musc Reports as per HPI, Reports back pain, Reports myalgias, Reports arthralgias and Reports limited range of motion Skin/Breast Reports change in pigmentation Neuro Denies Neuro-related abnormal movements and Reports headache(s) Psych Denies no additional complaints Endo Reports fatigue Arsh/Lymph Denies easy bleeding and Denies lymphadenopathy Aller/Immun Denies lip swelling, Denies tongue swelling and Denies wheezing Physical Exam Vital Signs: Last Vital Signs Pulse 72 03/19/25 15:18 BP 136/62 03/19/25 15:18 Pulse Ox 94 03/19/25 15:18 Oxygen Delivery Method Room Air 03/19/25 15:18 BMI result Body Mass Index 34.5 HEENT Ears: Abnormal EAC present erythema and EAC tenderness Eyes Direct Ophthalmoscopy: No photophobia Assessment & Plan Assessment & Plan (1) Chronic respiratory failure: Code(s): J96.10 - Chronic respiratory failure, unspecified whether with hypoxia or hypercapnia Category: Medical Qualifiers: Respiratory failure complication: hypoxia Qualified Code(s): J96.11 - Chronic respiratory failure with hypoxia (2) VIKAS (obstructive sleep apnea): Code(s): G47.33 - Obstructive sleep apnea (adult) (pediatric) Category: Medical (3) Asthma-COPD overlap syndrome: Code(s): J44.9 - Chronic obstructive pulmonary disease, unspecified Category: Medical (4) Steroid dependent: Code(s): F19.20 - Other psychoactive substance dependence, uncomplicated Category: Medical (5) Asthma: Code(s): J45.909 - Unspecified asthma, uncomplicated Category: Medical Qualifiers: Asthma complication type: uncomplicated Asthma persistence: persistent Asthma severity: severe Qualified Code(s): J45.50 - Severe persistent asthma, uncomplicated (6) Otitis externa: Code(s): H60.90 - Unspecified otitis externa, unspecified ear Category: Medical Qualifiers: Otitis externa type: other infective Chronicity: acute Laterality: left Qualified Code(s): H60.392 - Other infective otitis externa, left ear Plan conitnue APAP 9cm with oxygen, Trial F40 med bone density while on chronic steroids-+osteopenia Xolair and allergy shots [id number], pretreat with Benadryl and tylenol continue Breztri with spacer Continue Daliresp continue DuoNeb continue oxygen supplementation. POC for portability reflux diet PPI hand xray Start ear drops and abx Prednisone if worsens ECHO-good F/U 3-4 months Orders: Orders XR hand LT 2V Today S69.90XA - Unspecified injury of unspecified wrist, hand and finger(s), initial encounter Medications: New udqeucue-zxpqew-ZA-thonzonium 3.3-3-10-0.5 mg/mL (Cortisporin-TC) 4 drps otic (ear) left TID 10 mL 0RF 7 days Refilled codeine-guaifenesin 10-100 mg/5 mL 10 mL PO Q6H PRN 300 mL 0RF cough 10 days prednisone PO daily; Take 6 tabs daily x 3 days, then 5 tabs x 3 days, then 4 tabs x 3 days, then 3 tabs x 3 days, then 2 tabs daily x 3 days, then 1 tab x 3 days to complete. 63 tabs 0RF 18 days amoxicillin-pot clavulanate 875-125 mg 1 tab PO BID 20 tabs 0RF 10 days Coding Level of Care Code Est Pt Level 5 (95719) Complex EM visit Add On G2211 Diagnoses Chronic respiratory failure with hypoxia J96.11 Respiratory failure complication: hypoxia VIKAS (obstructive sleep apnea) G47.33 Asthma-COPD overlap syndrome J44.9 Steroid dependent F19.20 Severe persistent asthma without complication J45.50 Asthma complication type: uncomplicated Asthma persistence: persistent Asthma severity: severe Other infective acute otitis externa of left ear H60.392 Otitis externa type: other infective Chronicity: acute Laterality: left Time Spent (min) 40
--- OUTSIDE RECORDS SUMMARY | 2025-03-19 15:25 | XMS_ITS | Clinical Summary ---
Author Organization [facility] it Address [address] [place] [address] Care Team Providers Care Chief Mechanical Officer Name Role Phone Pina Lopez MD Primary Care Provider [phone] Surgical History Surgery Date Site/Laterality Comments CARPAL TUNNEL RELEASE 2008 PROCEDURE: HISTORICAL CARPAL TUNNEL REL CHOLECYSTECTOMY PROCEDURE: HISTORICAL CHOLECYSTECTOMY SECTION PROCEDURE: HISTORICAL DELIVERY OTHER SURGICAL HISTORY PROCEDURE: HISTORY OTHER; COMMENT: breast surgery COLONOSCOPY PROCEDURE: HISTORICAL COLONOSCOPY ESOPHAGOGASTRODUODENOSCOPY PROCEDURE: CA ESOPHAGOGASTRODUODENOSCOPY TRANSORAL DIAGNOSTIC Medical History Medical History Date Comments Depression DX:Depression; C OMMENT: seen by psych, Dr. Martino Anxiety DX:Anxiety Vitamin D deficiency DX:Vitamin D deficiency Vitamin B12 deficiency DX:Vitami n B12 deficiency Migraine DX:Migraine; COM MENT: botox inj at [facility] on 03/20/2013 VIKAS on CPAP DX:VIKAS on CPAP HTN (hypertension) DX:HTN (hyper tension) Vitiligo 06/10/2017 DX:Vitiligo Morbid obesity with BMI of 4 5.0-49.9, adult ([facility] V24, [facility] V28) 05/02/2017 DX:Morbid obesity wit h BMI of 45.0-49.9, adult ([facility]) Allergic rhinitis 05/17/2017 DX:Allergic rh initis CTS (carpal tunnel syndrome) 12/05/2012 DX: CTS (carpal tunnel syndrome); COMMENT: Dr hannah Osteoarthritis 12/05/2012 DX:Osteoarthriti s; COMMENT: knees, spine Asthma-COPD overlap syndrome ([facility] V24, [facility] V28) 08/31/2017 DX:Asthma-COPD overlap syndr ome ([facility]) Hypoxia 08/31/2017 DX:Hypoxia Chronic constipation [...] Years (1 of 2 - PCV) 1984 Cervical Cancer Screening: Pap Smear 1986 Zoster Vaccines (1 of 2) 2015 Cholesterol Screening (Lipid Panel) 07/18/2022 Colorectal Cancer Screening: Colonoscopy 07/18/2022 HIV Screening 07/18/2022 Hepatitis C Screening 07/18/2022 Social Influencers of Health Screening 07/18/2022 Hypertension/CHF/CAD Annual BMP Blood Test 07/28/2022 DTaP,Tdap,and Td Vaccines (2 - Td or Tdap) 01/02/2023 01/02/2013 COVID-19 Vaccine ( season) 2024 Depression Screening 08/15/2024 Influenza Vaccine (#1) 2025 9, 06/14/2017, 05/30/2017, Additional history exists RSV [...] age to complete this topic Care Teams Chief Mechanical Officer Relationship Specialty Start Date End Date Pina Lopez MD [address] [facility] [place] PCP - General Internal Medicine 06/21/17
--- OUTSIDE RECORDS SUMMARY | 2025-03-19 15:25 | XMS_ITS | Clinical Summary ---
Author Organization [facility] Address [address] [address] Phone Care Team Providers Care Monkey Trainer Name Role Phone Pina Lopez MD Primary Care Provider [phone] Allergies Active Allergy Reactions Criticality Noted Date [...] 2 (two) times a day Active Tiotropium [place] Monohydrate (Spiriva Respimat) 2.5 MCG/ACT aerosol solution [...] Obstructive sleep apnea syndrome 06/03/2021 Overview (06/03/2021): [facility] Home Polysomnogram: Date 11/10/2017; AHI 9, Unclassified apneas 1; Obstructive apneas 29; Central apneas 10; Mixed apneas 0; hypopneas 63; average oxygen saturation 93% (lowest 88% without saturations <88% for 5% or more of study) [facility] Home Sleep Apnea Test: Date 01/26/2019; [...] Migraine 12/05/2012 Overview (06/03/2021): Dr calderon neuro Immunizations Immunization Administration Dates Next Due Influenza, [...] Visit [facility] [address] [address] Carter Samayoa MD [address] [address] Health Maintenance Due Date Last Done Comments Breast Cancer Screening 1965 Hepatitis B Vaccine (1 of 3 - 19+ 3-dose series) 1984 Colorectal Cancer Screening: Annual FOBT 2014 Colorectal Cancer Screening: Colonoscopy 2014 Colorectal Cancer Screening: Sigmoidoscopy 2014 Pneumococcal Vaccine: 50+ Ye ars (3 of 3 - PCV) 03/01/2018 03/01/2017, 04/23/2008 Influenza Vaccine (#1) 2025 , 09/07/2019, 08/24/2018, Additional history exists Pneumococcal Vaccine: Peds ( 0 to 5 Years) and At-Risk Patients (6 to 49 Years) Discontinued 03/01/2017, 04/23/2008 Insurance [facility] Medicaid [facility] Medicaid Care Teams Monkey Trainer Relationship Specialty Start Date End Date Pina Lopez MD 11 [place], [place] PCP - General Internal Medicine 12/28/23
--- OUTSIDE RECORDS SUMMARY | 2025-03-19 15:25 | XMS_ITS | Encounter Summary ---
Author Organization [facility] Address [address] [place] [address] Care Team Providers Care Bottom Scrubber Name Role Phone Pina Lopez Primary Care Provider Unavailakilah e Reason for Visit * Reason Onset Date Comments Medication 01/20/2018 Encounter Details Date Type Department Care Team Description 01/20/2018 Telephone Pulmonology - [address] [place] [address] Christopher Clark MD Medication Social History Tobacco Use Types Packs/Day Years Used Date Smoking Tobacco: Never Smokeless Tobacco: Never Alcohol Use Standard Drinks/Week Comments No 0 (1 standard drink = 0.6 oz pur e alcohol) Sex Assigned at Date Recorded Not on file documented as of this encounter Miscellaneous Notes * Telephone Encounter - Carissa Hernandez M.A. - 01/20/2018 11:51 AM EDT FYI * Telephone Encounter - Alta Santizo - 01/20/2018 10:52 AM EDT Who is calling? A pharmacist: Pharmacy: [facility] Pharmacist Name: [facility] Name of the medication Hydrocodone What is the specific problem or interaction? She is getting from [facility] has a signed contract cant get from any other provider - NO OPIODS If the patient is having a problem with taking the med - how long has the problem been going on? N/A documented in this encounter Plan of Treatment Not on file documented as of this encounter Visit Diagnoses Not on filedocumented in this encounter Care Teams Bottom Scrubber Relationship Specialty Start Date End Date Pina Lopez PCP - General Internal Medicine 06/21/17 documented as of this encounter
== END 2025-03-19 16:05 | disposition home or self-care (01) ==
LOC: HO.HPS 14:54
PROVIDERS: PCP Pediatrics; Visit Provider Hospitalist
DX: J96.11 Chronic respiratory failure with hypoxia (principal); G47.33 Obstructive sleep apnea (adult) (pediatric); J44.9 Chronic obstructive pulmonary disease, unspecified; F19.20 Other psychoactive substance dependence, uncomplicated; J45.50 Severe persistent asthma, uncomplicated; H60.392 Other infective otitis externa, left ear
CPT/HCPCS: 99214; G2211

== ENCOUNTER → 2025-03-19 14:53 | Outpatient (BNVA) | payer OTHER, SELFPAY | PROVIDERS: PCP Pediatrics; Visit Provider Hospitalist | DX: G47.33 Obstructive sleep apnea (adult) (pediatric) (principal); F19.20 Other psychoactive substance dependence, uncomplicated; I72.8 Aneurysm of other specified arteries; K21.9 Gastro-esophageal reflux disease without esophagitis; R60.0 Localized edema; J44.1 Chronic obstructive pulmonary disease with (acute) exacerbation; J96.11 Chronic respiratory failure with hypoxia; J45.50 Severe persistent asthma, uncomplicated; H60.392 Other infective otitis externa, left ear; Z99.81 Dependence on supplemental oxygen | CPT/HCPCS: 99212 ==

== ENCOUNTER 2025-04-03 15:23 | Outpatient (REF) | payer OTHER, SELFPAY ==
--- NOTE | ~2025-04-03 | XR_ITS ---
EXAMINATION: XR HAND, LEFT CLINICAL INFORMATION: S69.90XA - Unspecified injury of unspecified wrist, hand and finger(s), ... COMPARISON: None available. TECHNIQUE: PA, lateral, and oblique views of the left hand. FINDINGS: There is lobulated lucency with endosteal scalloping involving the ulnar side of the base of the middle phalanx of the third digit. No acute fracture is identified. 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 Electronically signed by: Baltazar Castanon MD 04/03/2025 03:56 PM EDT
--- NOTE | 2025-04-03 15:54 | PFT_ITS ---
Indication: Asthma Spirometry FEV1 to FVC 76%; FEV1 2.68 L; FVC 3.54 L. No significant response to bronchodilators noted. Lung Volumes Total lung capacity 97% predicted; expiratory reserve volume 45% predicted Diffusion Capacity DLCO 102% predicted Comparisons None Interpretation No obstructive nor restrictive ventilatory defects identified. No response to bronchodilators noted. Lung volumes are normal except for decrease in the expiratory reserve volume secondary to an elevated BMI. Diffusing capacity is within normal limits. Flow volume loop is perfectly normal consistent with normal lung mechanics. Clinical correlation warranted. MTDD
--- OUTSIDE RECORDS SUMMARY | 2025-04-03 16:16 | XMS_ITS | Clinical Summary ---
Author Organization [facility] [facility] it Address [address] [place] [address] Care Team Providers Care Zone Manager Name Role Phone Pina Lopez MD Primary Care Provider [phone] Surgical History Surgery Date Site/Laterality Comments CARPAL TUNNEL RELEASE 2008 PROCEDURE: HISTORICAL CARPAL TUNNEL REL CHOLECYSTECTOMY PROCEDURE: HISTORICAL CHOLECYSTECTOMY SECTION PROCEDURE: HISTORICAL DELIVERY OTHER SURGICAL HISTORY PROCEDURE: HISTORY OTHER; COMMENT: breast surgery COLONOSCOPY PROCEDURE: HISTORICAL COLONOSCOPY ESOPHAGOGASTRODUODENOSCOPY PROCEDURE: MA ESOPHAGOGASTRODUODENOSCOPY TRANSORAL DIAGNOSTIC Medical History Medical History Date Comments Depression DX:Depression; C OMMENT: seen by psych, Dr. Martino Anxiety DX:Anxiety Vitamin D deficiency DX:Vitamin D deficiency Vitamin B12 deficiency DX:Vitami n B12 deficiency Migraine DX:Migraine; COM MENT: botox inj at [facility] on 03/20/2013 VIKAS on CPAP DX:VIKAS on CPAP HTN (hypertension) DX:HTN (hyper tension) Vitiligo 06/10/2017 DX:Vitiligo Morbid obesity with BMI of 4 5.0-49.9, adult ([facility] V24, [facility] V28) 05/02/2017 DX:Morbid obesity wit h BMI of 45.0-49.9, adult ([facility]) Allergic rhinitis 05/17/2017 DX:Allergic rh initis CTS (carpal tunnel syndrome) 12/05/2012 DX: CTS (carpal tunnel syndrome); COMMENT: Dr hannah Osteoarthritis 12/05/2012 DX:Osteoarthriti s; COMMENT: knees, spine Asthma-COPD overlap syndrome ([facility] V24, [facility] V28) 08/31/2017 DX:Asthma-COPD overlap syndr ome ([facility]) Hypoxia 08/31/2017 DX:Hypoxia Chronic constipation 08/31/2017 [...] age to complete this topic Care Teams Zone Manager Relationship Specialty Start Date End Date Pina Lopez MD [address] [facility] [place] PCP - General Internal Medicine 06/21/17
--- OUTSIDE RECORDS SUMMARY | 2025-04-03 16:16 | XMS_ITS | Clinical Summary ---
Author Organization [facility] Address [address] [address] Phone Care Team Providers Care Continuous Miner Name Role Phone Pina Lopez MD Primary Care Provider [phone] Allergies Active Allergy Reactions Criticality Noted Date [...] 2 (two) times a day Active Tiotropium Grant Monohydrate (Spiriva Respimat) 2.5 MCG/ACT aerosol solution [...] Obstructive sleep apnea syndrome 06/03/2021 Overview (06/03/2021): [facility] Home Polysomnogram: Date 11/10/2017; AHI 9, Unclassified apneas 1; Obstructive apneas 29; Central apneas 10; Mixed apneas 0; hypopneas 63; average oxygen saturation 93% (lowest 88% without saturations <88% for 5% or more of study) [facility] Home Sleep Apnea Test: Date [...] [facility] [address] [address] Carter Samayoa MD [address] [address] Health Maintenance Due Date Last [...] Health Medicaid [facility] [facility] Medicaid Care Teams Continuous Miner Relationship Specialty Start Date End Date Pina Lopez MD [address] [place], [place] PCP - General Internal Medicine 12/28/23
[2025-04-03 16:33] VITALS: PULSE 65; O2SAT 96
== END 2025-04-03 15:24 | disposition home or self-care (01) ==
LOC: HO.RESP 15:23
PROVIDERS: Visit Provider Hospitalist
DX: J45.50 Severe persistent asthma, uncomplicated (principal); S69.90XA Unspecified injury of unspecified wrist, hand and finger(s), initial encounter
CPT/HCPCS: 73130; 94010; 94640; 94727; 94729

== ENCOUNTER → 2025-04-03 15:28 | Outpatient (BNV) | payer OTHER, SELFPAY | PROVIDERS: Visit Provider Radiology Diagnostic Radiology | DX: D16.12 Benign neoplasm of short bones of left upper limb (principal) | CPT/HCPCS: 73130 ==

== ENCOUNTER → 2025-04-03 15:54 | Outpatient (BNV) | payer OTHER, SELFPAY | PROVIDERS: Visit Provider Hospitalist | DX: J45.909 Unspecified asthma, uncomplicated (principal) | CPT/HCPCS: 94060; 94727; 94729 ==

== ENCOUNTER 2025-06-24 14:51 | Outpatient (REF) | payer OTHER, SELFPAY ==
--- NOTE | ~2025-06-24 | XR_ITS ---
EXAMINATION: XR LUMBOSACRAL SPINE CLINICAL INFORMATION: M54.9 - Dorsalgia, unspecified COMPARISON: None available. TECHNIQUE: Three views of the lumbosacral spine. FINDINGS: Right upper quadrant clips are consistent with cholecystectomy. There is convex right curvature of the lumbar spine. There are 5 nonrib-bearing lumbar segments. T12-L1: There is minimal disc space narrowing L1-L2: There is subtle retrolisthesis, minimal disc space during, and small anterior osteophytes L2-L3: There is minimal disc space narrowing and small anterior osteophytes L3-L4: There is moderate disc space narrowing with endplate sclerosis, osteophytes, degenerative cystic change and facet sclerosis. L4-L5: There is minimal disc space narrowing with anterior osteophytes. There is also facet sclerosis. L5-S1: There are minimal anterior osteophytes. XR/XR lumbar spine 2-3V IMPRESSION: Degenerative changes are most advanced at L3-4. IMPRESSION: Unremarkable examination. Electronically signed by: Baltazar Castanon MD 06/24/2025 05:56 PM ANU
--- OUTSIDE RECORDS SUMMARY | 2025-06-24 17:53 | XMS_ITS | Clinical Summary ---
Author Organization [facility] Address [address] [place] [phone] Phone Care Team Providers Care Manufacturing Design Engineer Name Role Phone Pina Lopez MD Primary Care Provider Allergies Active Allergy Reactions Criticality Noted Date [...] 2 (two) times a day Active Tiotropium [place] Monohydrate (Spiriva Respimat) 2.5 MCG/ACT aerosol solution [...] Obstructive sleep apnea syndrome 06/03/2021 Overview (06/03/2021): [facility] Home Polysomnogram: Date 11/10/2017; AHI 9, Unclassified apneas 1; Obstructive apneas 29; Central apneas 10; Mixed apneas 0; hypopneas 63; average oxygen saturation 93% (lowest 88% without saturations <88% for 5% or more of study) [facility] Home Sleep Apnea Test: Date [...] Care Team (Late st Contact Info) Description 08/16/2025 11:00 AM EST Office Visit [facility] [address] [phone] Carter Samayoa MD [address] [phone] Health Maintenance Due Date Last Done Comments Breast Cancer Screening 1965 Colorectal Cancer Screening: Annual FOBT 2014 Colorectal Cancer Screening: Colonoscopy 2014 Colorectal Cancer Screening: Sigmoidoscopy 2014 Pneumococcal Vaccine: 50+ Years (3 of 3 - PCV) 03/01/2018 03/01/2017, 04/23/2008 Influenza Vaccine (#1) 2025 , 09/07/2019, 08/24/2018, Additional history exists Pneumococcal Vaccine: Peds (0 to 5 Years) and At-Risk Patients (6 to 49 Years) Discontinued 03/01/2017, 04/23/2008 Hepatitis B Vaccine Aged Out No longe r eligible based on patient's age to complete this topic Insurance [facility] Medicaid [facility] Medicaid Care Teams Manufacturing Design Engineer Relationship Specialty Start Date End Date Pina Lopez MD [address] [place], [place] PCP - General Internal Medicine 12/28/23
== END 2025-06-24 14:52 | disposition home or self-care (01) ==
LOC: HO.XRAY 14:51
PROVIDERS: PCP Pediatrics; Visit Provider Hospitalist
DX: J44.89 Other specified chronic obstructive pulmonary disease (principal); R60.0 Localized edema; K21.9 Gastro-esophageal reflux disease without esophagitis; B02.29 Other postherpetic nervous system involvement; G47.33 Obstructive sleep apnea (adult) (pediatric); F19.20 Other psychoactive substance dependence, uncomplicated; I72.8 Aneurysm of other specified arteries; M54.9 Dorsalgia, unspecified; J96.11 Chronic respiratory failure with hypoxia; J45.50 Severe persistent asthma, uncomplicated; H60.392 Other infective otitis externa, left ear
CPT/HCPCS: 72100; 99212

== ENCOUNTER 2025-06-24 14:51 | Outpatient (AMB) | payer OTHER, SELFPAY ==
[2025-06-24 14:58] VITALS: BP 158/84; PULSE 76; O2SAT 94; BMI 37.0
--- NOTE | 2025-06-24 14:58 | A.OFFVIS_ITS ---
Vital Signs 06/24/25 14:58 Height 5 ft 6 in Weight 229 lb 4.492 oz BMI 37.0 BP 158/84 H Blood Pressure Location Lt brachial Position Sitting Pulse 76 Pulse Source Pulse Oximeter Pulse Oximetry (%) 94 Oxygen Delivery Method Room Air Intake Visit Reasons: COPD Aircraft Instrument Tester Required: Yes Aircraft Instrument Tester Services: Aircraft Instrument Tester Offered & Declined Aircraft Instrument Tester Name: MD speaks swedish Allergies topiramate (From Topamax) Allergy (Mild, Verified 06/24/25 15:01) Tingling in mouth and lips HPI Comments Details: The patientis a 60 y/o woman with underlying chronic respiratory failure on oxygen in addition to COPD, VIKAS on CPAP. She is oxygen dependent. She does have dyspnea on exertion. Moderate in amount. The oxygen has been helpful. However, it is hard for her to carry the oxygen tanks. She is concerned about the finding on the CT scan of the chest demonstrating 1.7 cm splenic artery aneurysm. Therefore, I will refer her to vascular surgeon. Overall, the patient is doing well from a respiratory standpoint. She understand that she does have a moderate risk for perioperative pulmonary complications. I did review her sleep study from January 2018 demonstrating moderate sleep apnea with significant hypoxia. I will send a new prescription for CPAP to the [facility]. When she Star CPAP for we can do an overnight oximetry to see if she does need oxygen with her CPAP. She continues using her oxygen. She is still having issues with a battery operated portable oxygen concentrator. She has a hard time caring her oxygen tanks because of her significant arthritis and other comorbidities. The portable oxygen concentrator will provide better portability outside of her home. 07/18/2023 the patient is here for a pulmonary follow-up visit. Overall she is been doing well on Xolair and also the allergy shots. Although, she is been having significant headaches. She attributes this to the Xolair. She had been pretreating with Tylenol and Benadryl in in the past that did help with the headaches. Therefore, will provide with the Tylenol she already has a Benadryl so she can continue to do that pre medication treatment to minimize the adverse effects. Her respiratory therapy has been able to stabilize her respiratory symptoms significantly. She is still using her oxygen as prescribed with good effect. she has been started to have symptoms of sinusitis. She is concerns that is developing to full flush sinusitis. Will make sure to provide him medications to have case her symptoms worsen. In the meantime the patient has been having daytime drowsiness. she does use oxygen and also has a history of sleep apnea in the past. Her Mobile score is elevated 10/24. At this point will request that the patient undergo a sleep study. Since she is on oxygen she will require an in-lab study. 10/17/2023 the patient is here for pulmonary follow-up visit. She has been very sickly the last 2 weeks. The patient has had positive sick contacts in the home as her grandchild was sick and the rest of the family became very sick. Ultimately her symptoms worsened significantly activating her asthma. She was having significant chest tightness and wheezing. Her COVID testing was negative. The child that initially was sick was also tested for RSV and flu and COVID and all negative. The patient did call the office and we did start her on doxycycline and also a course of prednisone. The patient has been tapering down now 30 mg of prednisone. She does feel better but still having significant nasal congestion nasal obstruction sinus pressure. Moderate severity. Hoarseness. Also complains of a cough. Also having chest tightness and wheezing still. She is using her nebulizer. She is also using her oxygen. She has not had any recent x-rays imaging studies. The patient may have a component of sinusitis this point and will treat her accordingly. In addition to that she continues to have significant daytime drowsiness. She did have a in-lab sleep study that was personally reviewed. The patient does have significant sleep apnea and was recommended that she have a CPAP titration study. We did requested but was initially denied by the insurance. We are still waiting approval at this time. The patient does have an elevated Mobile score of 12/24. The patient has significant risk factors and a positive sleep study with evidence of respiratory failure. Therefore a titration study would be most important to be able to provide her with the Appropriate PAP therapy. Also, very importantly the patient has been having issues with headaches. She does have a blood pressure meter at home and she did bring some of the readings which were very alarming. The highest blood pressure was systolic blood pressure about 210 and diastolic pressure also elevated overall 108. the patient has a prescription for torsemide but she stopped taking it in view of the fact that she was urinating a lot while being on the prednisone. In addition to that she has a prescription for verapamil but does not always take it either. At this point the patient understands that broad pressure-like that could result in stroke and can result in serious end-organ damage. The patient has been reluctant to go to the ER specially because of all the illnesses that she has been exposed to already in the end since that will be in the ER. I did give her a prescription for small dose of hydralazine that she can use as needed while s he weighs see her primary care doctor and labor specialist. 01/16/2024 the patient is here for pulmonary follow-up visit. She continues to have significant daytime drowsiness. Her Mobile score is elevated 11/24. She did have a titration sleep study. We did review. Appearance that she did very well on CPAP of 9 cm. The patient needs to start CPAP at this time. She has significantly elevated blood pressures with systolic in the 200s. She has had hard to control blood pressure and is likely from the untreated sleep apnea. She also has significant headaches and migraines the the untreated sleep apnea is likely contributing to. Therefore, will request a CPAP of 9 cm soon as possible. She also is on oxygen so therefore will add her oxygen supplementation CPAP. Hopefully will help her blood pressure. She continues use respiratory medicine. She still has a cough. The cough is persistent. Moderate severity. Since requesting cough medication. She continues with respiratory medication. For some reason the Daliresp has not been provided in the last 2 weeks she is already noticed worsening respiratory symptoms. Will go ahead and request Daliresp at the pharmacy again. She has been on it for many years and therefore is therapy that she needs to continue. 04/12/2024 the patient is here for a pulmonary follow-up visit. Overall the patient has been doing fair. She was done in [place] for about a month. There she got sick with a respiratory illness. She did have some antibiotics and she did taken. She also had a little bit of prednisone which she took that as well. Although she is still not better. She feels have significant hoarseness and cough. Productive cough at times. Moderate severity. She has been using all her respiratory medications. Currently she is doing a little better from how she was before. In addition to that the patient is still struggling with her sleep. She has an elevated Mobile score of 10/24. We did request a CPAP for her during the last visit but she has yet to receive it. We did call the [employer] company we did rectify that they received all the paperwork to make sure that she gets her equipment. Once she situated she is going to start using the CPAP with the oxygen. Will follow-up in about 3 months and she can bring her CPAP with her so we can assess her response to therapy. Her last chest x-ray was back in 11/02/2023 she did have some areas of opacities and atelectasis. Will plan to repeat her x-ray when she returns in 3 months. If she continues to be symptomatic she can always call so we can get the x-ray on sooner. If the x-ray continues to be abnormal will consider getting a CT scan of the chest. 07/10/2024 the patient is here for a pulmonary follow-up visit. She has been sick now for about a week. Started developing sore throat chest congestion and cough. She went to her primary care doctor there she had COVID and RSV testing. She is waiting for the RSV with the COVID was negative. She also had a strep throat which was negative. The patient also had a chest x-ray which per report was told that it was okay. She was placed on Augmentin and a short course of prednisone. She is partially better. She has significant hoarseness. She has been using her respiratory therapy. She continues have significant daytime drowsiness with an elevated Mobile score of 1124. She finally set up for CPAP. She is going to be picking it up soon. I did recommend that she wait until she is better to start using the PAP therapy. She will continue with the prednisone taper and also will go ahead and treat her with Augmentin and doxycycline to complete a 10 day course. 09/07/2024 the patient is here for a pulmonary follow-up visit. Overall she is doing well. She did start the new CPAP therapy. The therapy has been affecting beneficial. She does use hormone 4 hours. She does better with a fullface mask. I am requesting axis to airway to be able to download the machine adjusted accordingly. The patient also continues with respiratory therapy with good effect. Her only complaint is left-sided back and side discomfort. She did have a CT scan of the abdomen done because of that. They were looking for kidney stones so there kidneys were okay. She does have a splenic aneurysm that is calcified and she has had that documented for many years. This has been stable. When she does have significant disease of her vertebral bodies. She has also had MRIs demonstrating significant disc bulging around the L3-L4 and likely has some radiculopathy to that area that is causing the left-sided discomfort. She is working with pain management. She has been also on chronic steroids and has received significant amount of cortical steroids via injections. Therefore will go ahead and request a bone density test. Patient also has been having increasing shortness of breath. Will have her get an echo and a PFT and then will follow-up in 3-4 months. If the patient has any worsening issues she can always call for an earlier assessment. 11/06/2024 the patient is here for pulmonary follow-up visit. Overall the patient has been doing okay. Recently she started developing worsening cough and some laryngitis. She is concerned she is getting sick again. But otherwise she has been doing okay. She does have her bone density test scheduled. She still has some difficulty breathing. Dyspnea on exertion. [id number] severity. The oxygen does help. She did have a chest x-ray that was planned was nondiagnostic. Her PFTs are pending. Based on her ongoing dyspnea symptoms and cough will go ahead and request a CT scan of the chest to better address the area. The patient continues uses CPAP. CPAP therapy has been affecting beneficial. She does use it for more than 4 hours a night. Although there mask is uncomfortable. She is wondering if she can switch over to the F 40 mask. I believe that this will be a better fit for her as well. Will request that her [employer] company, [employer] was switch her mask to a enough 40. She does have an unopened box of supplies. Will see if [employer] can exchange to the F 40 mask at this time. 01/18/2025 the patient is here for pulmonary follow-up visit. Overall the patient has been doing okay. She has been losing weight on a GLP 1 inhibitor. She continues on the CPAP therapy in the CPAP therapy has been affecting beneficial. She does use it for 4 hours a night. She continues use her respiratory therapy with good effect. She feels like she is getting the be developing a sinus infection soon. in view of her significant prednisone use we did send her for a bone density test. She understands that she does have osteopenia and therefore she has very careful with steroids or any medications 2nd in the bone growth or cause bone Destruction. She is following closely with Nephrology for her blood pressure issues and seems to be doing a little better. She recently did have a CT scan of the chest that was personally by me. Again demonstrating the splenic artery aneurysm. Was recommended that she undergo a dedicated CT scan of the abdomen to better visualize up with contrast. Therefore will go ahead and order that. She will have to follow-up with vascular surgery after that. 03/19/2025 the patient is here for a pulmonary follow-up visit. The patient overall has been complaining of left ear discomfort pain and itchiness. She is also draining some fluid from it. Denies going into a pool or Lloyd or lb. The patient also has been noticing some raspiness of her voice. She feels like she is getting sick. She has been using the CPAP although the head gear has been bothering her christian area. We did request a different mask, F40 for her [employer] company but she has not received that. I did have 1 available so I did provide it for her and she did try it and it did not bother her the same area. Therefore she will use it for now. Sometimes the mask bothers her skin specially with her vitiligo but she will monitor closely with the new mask. Meantime she continues her respiratory therapy. She continues use the oxygen with good effect. Again CPAP has been affecting beneficial she does use it for more than 4 hours a night. She does have a CAT scan and a PFT pending for the end of the month and will see her sometime in the fall to review those results. 06/24/2025 the patient is here for pulmonary follow-up visit. Overall she is doing better now. She was sick back in May. She did require prednisone and antibiotics as she has exposed to sick contacts. The patient does have immuno compromised state and she gets sick very quickly. She continues her respiratory therapy with good effect. The patient also continues CPAP therapy with good effect. The therapy has been affecting beneficial and she does use it for more than 4 hours a night. She appears to have a injury to her hand she is going to need surgery for that hand and the patient is also having some back pain issues. Likely musculoskeletal. Otherwise from a pulmonary standpoint she is going to continue with the current respiratory therapy. [facility] Medical History (Updated 06/24/25 @ 15:33 by Christopher Clark MD) Back pain Otitis externa retirement (current) use of systemic steroids Lower extremity edema Asthma Steroid dependent Hematuria Chronic respiratory failure COPD exacerbation Sinusitis VIKAS (obstructive sleep apnea) Asthma-COPD overlap syndrome Surgical History Carpal tunnel syndrome Family History Sister Asthma Social History Patient Tobacco Use Status: Never used Tobacco Review of Systems Const Reports daytime sleepiness, Reports difficulty sleeping, Reports fatigue, Reports headache(s), Reports malaise, Denies night sweats and Reports stops breathing during sleep Eyes Reports no additional complaints, Denies eye discharge, Denies irritation and Denies photophobia ENT Denies change in voice, Reports ear discharge, Reports otalgia, Reports headache(s), Denies lip swelling, Denies mouth pain, Reports nasal congestion, Reports nasal discharge and Denies tongue swelling Card Reports leg edema and Reports dyspnea on exertion Resp Reports cough, Reports pain with cough, Reports dyspnea on exertion and Denies wheezing GI Reports abdominal pain, Reports dyspepsia and Reports heartburn Denies dysuria Musc Reports as per HPI, Reports back pain, Reports myalgias, Reports arthralgias and Reports limited range of motion Skin/Breast Reports change in pigmentation Neuro Denies Neuro-related abnormal movements and Reports headache(s) Psych Denies no additional complaints Endo Reports fatigue Arsh/Lymph Denies easy bleeding and Denies lymphadenopathy Aller/Immun Denies lip swelling, Denies tongue swelling and Denies wheezing Physical Exam Vital Signs: Last Vital Signs Pulse 76 06/24/25 14:58 BP 158/84 H 06/24/25 14:58 Pulse Ox 94 06/24/25 14:58 Oxygen Delivery Method Room Air 06/24/25 14:58 BMI result Body Mass Index 37.0 Const General: alert Eyes Direct Ophthalmoscopy: No photophobia Neck Neck: Yes normal visual inspection, Yes full ROM and Yes no lymphadenopathy Chest Chest palpation & inspection: normal inspection of the chest Resp Effort & Inspection: normal respiratory effort, able to speak in complete sentences and no audible wheezes Auscultation: no crackles, no rales, no rhonchi, no wheezes and diminished lung sounds Cardio Rate: regular rate Rhythm: regular rhythm Heart sounds: S1 normal heart sound present and S2 normal heart sound present GI Palpation (GI): Soft to palpation and nontender Auscultation: normal bowel sounds Skin General skin exam: no rashes or lesions noted and other (vitiligo) Extrem General: No clubbing, No cyanosis and Yes edema Assessment & Plan Assessment & Plan (1) Chronic respiratory failure: Code(s): J96.10 - Chronic respiratory failure, unspecified whether with hypoxia or hypercapnia Category: Medical Qualifiers: Respiratory failure complication: hypoxia Qualified Code(s): J96.11 - Chronic respiratory failure with hypoxia (2) Asthma-COPD overlap syndrome: Code(s): J44.9 - Chronic obstructive pulmonary disease, unspecified Category: Medical (3) Steroid dependent: Code(s): F19.20 - Other psychoactive substance dependence, uncomplicated Category: Medical (4) Asthma: Code(s): J45.909 - Unspecified asthma, uncomplicated Category: Medical Qualifiers: Asthma complication type: uncomplicated Asthma persistence: persistent Asthma severity: severe Qualified Code(s): J45.50 - Severe persistent asthma, uncomplicated (5) Otitis externa: Code(s): H60.90 - Unspecified otitis externa, unspecified ear Category: Medical Qualifiers: Chronicity: acute Laterality: left Otitis externa type: other infective Qualified Code(s): H60.392 - Other infective otitis externa, left ear Plan conitnue APAP 9cm with oxygen, Trial F40 med bone density while on chronic steroids-+osteopenia Xolair and allergy shots [id number], pretreat with Benadryl and tylenol continue Breztri with spacer Continue Daliresp continue DuoNeb continue oxygen supplementation. POC for portability reflux diet PPI ECHO-good F/U 2-3 months Orders: Orders XR lumbar spine 2-3V Today M54.9 - Dorsalgia, unspecified Medications: New doxycycline hyclate 100 mg PO BID 20 caps 0RF 10 days RSVPreF3 antigen-AS01E (PF) 120 mcg/0.5 mL 0.5 mL IM ONCE 1 ea 0RF 1 day J44.9 - Chronic obstructive pulmonary disease, unspecified, J45.50 - Severe persistent asthma, uncomplicated, J96.11 - Chronic respiratory failure with hypoxia Refilled prednisone PO daily; Take 2 tabs daily x 5 days, then 1 tablet daily x 5 days 15 tabs 0RF 10 days Coding Level of Care Code Est Pt Level 4 (09413) Complex EM visit Add On G2211 Diagnoses Chronic respiratory failure with hypoxia J96.11 Respiratory failure complication: hypoxia Asthma-COPD overlap syndrome J44.9 Steroid dependent F19.20 Severe persistent asthma without complication J45.50 Asthma complication type: uncomplicated Asthma persistence: persistent Asthma severity: severe Other infective acute otitis externa of left ear H60.392 Chronicity: acute Laterality: left Otitis externa type: other infective Time Spent (min) 18
--- OUTSIDE RECORDS SUMMARY | 2025-06-24 17:06 | XMS_ITS | Clinical Summary ---
Author Organization [facility] Address [address] [place] [address] Phone Care Team Providers Care Real Estate Leasing Manager Name Role Phone Pina Lopez MD Primary Care Provider [phone] Allergies Active Allergy Reactions Criticality Noted Date Comments Eplerenone 06/03/2021 Hazelnut Unknown 03/09/2022 Other 05/06/2025 Tree Nuts High 05/06/2025 Medications No known medications Encounters Date Type Department Care Team Description 05/06/2025 6:08 PM EDT - 05/06/2025 10:32 PM EDT Emergency [facility] Emergency [address] [place] [address] Discharge Disposition: Home or Self Care from Last 3 Months Surgical History Surgery Date Site/Laterality Comments CARPAL TUNNEL RELEASE 2008 PROCEDURE: HISTORICAL CARPAL TUNNEL REL CHOLECYSTECTOMY PROCEDURE: HISTORICAL CHOLECYSTECTOMY SECTION PROCEDURE: HISTORICAL DELIVERY OTHER SURGICAL HISTORY PROCEDURE: HISTORY OTHER; COMMENT: breast surgery COLONOSCOPY PROCEDURE: HISTORICAL COLONOSCOPY ESOPHAGOGASTRODUODENOSCOPY PROCEDURE: [place] ESOPHAGOGASTRODUODENOSCOPY TRANSORAL DIAGNOSTIC Medical History Medical History Date Comments Depression DX:Depression; C OMMENT: seen by psych, Dr. Martino Anxiety DX:Anxiety Vitamin D deficiency DX:Vitamin D deficiency Vitamin B12 deficiency DX:Vitami n B12 deficiency Migraine DX:Migraine; COM MENT: botox inj at [facility] on 03/20/2013 VIKAS on CPAP DX:VIKAS on CPAP HTN (hypertension) DX:HTN (hyper tension) Vitiligo 06/10/2017 DX:Vitiligo Morbid obesity with BMI of 4 5.0-49.9, adult (CMS/HCC V24, CMS/HCC V28) 05/02/2017 DX:Morbid obesity wit h BMI of 45.0-49.9, adult ([facility]) Allergic rhinitis 05/17/2017 DX:Allergic rh initis CTS (carpal tunnel syndrome) 12/05/2012 DX: CTS (carpal tunnel syndrome); COMMENT: Dr hannah Osteoarthritis 12/05/2012 DX:Osteoarthriti s; COMMENT: knees, spine Asthma-COPD overlap syndrome (CMS/HCC V24, CMS/HCC V28) 08/31/2017 DX:Asthma-COPD overlap syndr ome (HCC) [...] Sexual Orientation Not on file Obstetrics History Last Filed Vital Signs Vital Sign Reading Time Taken Comments Blood Pressure 135/80 05/06/2025 6:25 PM EDT Pulse 75 05/06/2025 6:25 PM EDT Temperature - - Respiratory Rate 16 05/06/2025 6:25 PM EDT Oxygen Saturation 96% 05/06/2025 6:25 PM EDT Inhaled Oxygen Concentration - - Weight 98.9 kg (218 lb) 05/06/2025 6:25 PM EDT Height 167.6 cm (5' 6 ) 05/06/2025 6:25 PM EDT Body Mass Index 35.19 05/06/2025 6:25 PM EDT Plan of Treatment Health Maintenance Due Date Last Done Comments Breast Cancer Screening 1965 Colorectal Cancer Screening: Colonoscopy 1965 Cervical Cancer Screening: Pap Smear 1986 RSV Immunization Adult Patients (1 - Risk 50-74 years 1-dose series) 2015 Pneumococcal Vaccine: 50+ Years (3 of 3 - PCV) 03/01/2018 03/01/2017, 04/23/2008 COVID-19 Vaccine (3 - Moderna risk series) 03/06/2021 02/06/2021, 01/02/2021 Cholesterol Screening (Lipid Panel) 07/18/2022 HIV Screening 07/18/2022 Hepatitis C Screening 07/18/2022 Social Influencers of Health Screening 07/18/2022 Hypertension/CHF/CAD Annual BMP Blood Test 07/28/2022 Depression Screening 08/15/2024 Influenza Vaccine (#1) 2025 , 07/18/2023, 06/04/2022, Additional history exists DTaP,Tdap,and Td Vaccines (4 - Td or Tdap) 03/01/2027 03/01/2017, 01/02/2013, 04/23/2008 Hepatitis A Vaccines Aged Out 04/23/2008 No long er eligible based on patient's age to complete this topic Zoster Vaccines Completed 01/26/2025, 06/11/2024 HIB Vaccines Aged Out No longer eligi ble based on patient's age to complete this topic HPV Vaccines Aged Out No longer eligi ble based on patient's age to complete this topic Hepatitis B Vaccines Aged Out No long er eligible [...] on patient's age to complete this topic Insurance [facility] MEDICAID ADVANTAGE Care Teams Real Estate Leasing Manager Relationship Specialty Start Date End Date Pina Lopez MD [address] [place] PCP - General Internal Medicine 06/21/17
== END 2025-06-24 15:33 | disposition home or self-care (01) ==
LOC: HO.HPS 14:52
PROVIDERS: PCP Pediatrics; Visit Provider Hospitalist
DX: J96.11 Chronic respiratory failure with hypoxia (principal); J44.9 Chronic obstructive pulmonary disease, unspecified; F19.20 Other psychoactive substance dependence, uncomplicated; J45.50 Severe persistent asthma, uncomplicated; H60.392 Other infective otitis externa, left ear
CPT/HCPCS: 99214; G2211

== ENCOUNTER → 2025-06-24 16:01 | Outpatient (BNV) | payer OTHER, SELFPAY | PROVIDERS: PCP Pediatrics; Visit Provider Radiology Diagnostic Radiology | DX: M51.360 Other intervertebral disc degeneration, lumbar region with discogenic back pain only (principal) | CPT/HCPCS: 72100 ==